=== PATIENT | female | born 1945 | race Caucasian/White ===

== ENCOUNTER 2016-12-31 03:39 | Inpatient (IN) | payer OTHER, MEDICARE ==
[2016-12-31] VITALS (7 sets, daily range): BP systolic 104–120; BP diastolic 66–72; PULSE 90–105; TEMP 36.6–37; O2SAT 93–97; Ht 165.1 cm; Wt 61.0 kg
[~2016-12-31] VITALS: Ht 165.1 cm; Wt 61.0 kg
[~2016-12-31 03:39] MED LIST: HYDR-3419 PO
[2016-12-31] MEDS ORDERED: SODIUM CHLORIDE 0.9% 1000ML 1,000 ML IV STA (03:58)
[2016-12-31] MEDS ORDERED: MoRPHine SULFATE 4 MG/ML 1 ML CARP\\VIAL IV STA (03:58)
[2016-12-31] MEDS ORDERED: ONDANSETRON INJ 2 MG/ML 2 ML VIAL IV STA (03:58)
--- NOTE | 2016-12-31 04:00 | EMERGENCY ROOM VISIT NOTE ---
History Report prepared by Scribirma: Cal Bowers Under the Supervision of: Dr. Ed Muhammad D.O. First contact with patient: 03:46 Chief Complaint: VOMITING Stated Complaint: VOMITING History of Present Illness The patient is a 71 year old female who presents to the Emergency Room with complaints of recurrent vomiting since yesterday. She has been vomiting "green stuff." The patient also complains of nausea and abdominal pain. The patient noticed a mass in the right lower abdomen area that came out in the middle of the night. The patient started experiencing abdominal pain before vomiting or before the lump was noticed. She denies any fevers. The patient has been eating. She has been constipated. She has never had surgery of the abdomen. She has no known drug allergies. Source of History: patient Onset: yesterday Position: other (GI) Quality: other (vomiting) Timing: other (recurrent) Associated Symptoms: + abdominal pain, + nausea, No fevers Review of Systems See HPI for pertinent positives and negatives. A total of ten systems were reviewed and were otherwise negative. Past Medical & Surgical Medical Problems: (1) Pelvic fracture Family History No pertinent family history Social History Smoking Status: Current Every Day Smoker Marital Status: Housing Status: lives with family Current/Historical Medications Scheduled PRN Albuterol Hfa (Ventolin Hfa), 2-4 PUFFS INH Q6H PRN for SOB/Wheezing Allergies Coded Allergies: No Known Allergies (Unverified , 12/31/16) Physical Exam Vital Signs Date Time Temp Pulse Resp B/P Pulse Ox O2 Delivery O2 Flow Rate FiO2 12/31/16 05:39 94 18 131/72 95 Room Air 12/31/16 03:43 36.8 106 18 93 Room Air Physical Exam GENERAL: Awake, alert, well-appearing, in no distress HENT: Normocephalic, atraumatic. Oropharynx unremarkable. EYES: Normal conjunctiva. Sclera non-icteric. NECK: Supple. No nuchal rigidity. FROM. No JVD. RESPIRATORY: Clear to auscultation. CARDIAC: Regular rate, normal rhythm. Extremities warm and well perfused. Pulses equal. ABDOMEN: Increased high pitched bowel sounds. Right lower quadrant mass, suspect hernia. RECTAL: Deferred. MUSCULOSKELETAL: Chest examination reveals no tenderness. The back is symmetrical on inspection without obvious abnormality. There is no CVA tenderness to palpation. No joint edema. LOWER EXTREMITIES: Calves are equal size bilaterally and non-tender. No edema. No discoloration. NEURO: Normal sensorium. No sensory or motor deficits noted. SKIN: No rash or jaundice noted. Medical Decision & Procedures ER Provider Diagnostic Interpretation: Radiology results as stated below per my review and radiologist interpretation CT ABDOMEN & PELVIS: Findings consistent with small bowel obstruction secondary to a small bowel containing right femoral hernia. Trace free fluid. No free air. Cholelithiasis without CT evidence of acute cholecystitis. Subcentimeter renal hypodensities, right lower pole, likely cysts. Atherosclerotic calcifications. Mild to moderate height loss of L2 and T11 vertebral bodies, chronic appearing, large Schmorls node at superior endplate of L3. Radiologist Ivett Swenson MD. Laboratory Results 12/31/16 04:00 Red Blood Count 5.36, Mean Corpuscular Volume 90.5, Mean Corpuscular Hemoglobin 30.8, Mean Corpuscular Hemoglobin Concent 34.0, Mean Platelet Volume 9.1, Neutrophils (%) (Auto) 85.1, Lymphocytes (%) (Auto) 9.5, Monocytes (%) (Auto) 5.0, Eosinophils (%) (Auto) 0.1, Basophils (%) (Auto) 0.1, Neutrophils # (Auto) 11.63, Lymphocytes # (Auto) 1.30, Monocytes # (Auto) 0.68, Eosinophils # (Auto) 0.02, Basophils # (Auto) 0.01 12/31/16 04:00 Test 12/31/16 04:00 White Blood Count 13.67 K/uL (4.8-10.8) Red Blood Count 5.36 M/uL (4.2-5.4) Hemoglobin 16.5 g/dL (12.0-16.0) Hematocrit 48.5 % (37-47) Mean Corpuscular Volume 90.5 fL (80-100) Mean Corpuscular Hemoglobin 30.8 pg (25-34) Mean Corpuscular Hemoglobin Concent 34.0 g/dl (32-36) Platelet Count 322 K/uL (130-400) Mean Platelet Volume 9.1 fL (7.4-10.4) Neutrophils (%) (Auto) 85.1 % Lymphocytes (%) (Auto) 9.5 % Monocytes (%) (Auto) 5.0 % Eosinophils (%) (Auto) 0.1 % Basophils (%) (Auto) 0.1 % Neutrophils # (Auto) 11.63 K/uL (1.4-6.5) Lymphocytes # (Auto) 1.30 K/uL (1.2-3.4) Monocytes # (Auto) 0.68 K/uL (0.11-0.59) Eosinophils # (Auto) 0.02 K/uL (0-0.5) Basophils # (Auto) 0.01 K/uL (0-0.2) RDW Standard Deviation 45.5 fL (36.4-46.3) RDW Coefficient of Variation 13.9 % (11.5-14.5) Immature Granulocyte % (Auto) 0.2 % Immature Granulocyte # (Auto) 0.03 K/uL (0.00-0.02) Anion Gap 8.0 mmol/L (3-11) Est Creatinine Clear Calc Drug Dose 48.7 ml/min Estimated GFR () 70.2 Estimated GFR (Non- 60.6 BUN/Creatinine Ratio 15.7 (10-20) Calcium Level 10.1 mg/dl (8.5-10.1) Total Bilirubin 0.7 mg/dl (0.2-1) Direct Bilirubin 0.2 mg/dl (0-0.2) Aspartate Amino Transf (AST/SGOT) 13 U/L (15-37) Alanine Aminotransferase (ALT/SGPT) 18 U/L (12-78) Alkaline Phosphatase 74 U/L (45-117) Total Protein 8.5 gm/dl (6.4-8.2) Albumin 4.2 gm/dl (3.4-5.0) Lipase 78 U/L (73-393) Laboratory results reviewed by me Medications Administered Medications (Trade) Dose Ordered Sig/Shay Route Start Time Stop Time Status Last Admin Dose Admin Sodium Chloride (Nss 1000ml) 1,000 ml @ 999 mls/hr Q1H1M STAT IV 12/31/16 03:58 12/31/16 04:58 DC 12/31/16 03:58 999 MLS/HR Ondansetron HCl (Zofran Inj) 4 mg NOW STAT IV 12/31/16 03:58 12/31/16 04:00 DC 12/31/16 04:04 4 MG Morphine Sulfate (MoRPHine SULFATE INJ) 4 mg NOW STAT IV 12/31/16 03:58 12/31/16 04:00 DC 12/31/16 04:04 4 MG ECG Indication: vomiting Rate (beats per minute): 68 Rhythm: normal sinus Findings: no acute ischemic change, left axis deviation ED Course 0350: The patient was evaluated in room A12b. A complete history and physical exam was performed. 0358: Morphine Sulfate 4 mg IV, Zofran 4 mg IV, NSS 1000 ml @ 999 mls/hr. 0400: Attempted to reduce the hernia in Trendelenburg position unsuccessfully. 0558: Discussed the case with Dr. Marte, General Surgery. The patient will be evaluated. 0600: Updated the patient. She was resting in no distress. Will place an NG tube. Medical Decision Differential diagnosis includes incarcerated hernia, strangulated hernia, reducible hernia, bowel obstruction, metabolic derangement, dehydration. On able to reduce the femoral hernia with Trendelenburg and pain medicine and direct pressure. Patient underwent CT imaging which shows a hernia with bowel obstruction. Patient was started on an NG tube IV fluids and pain medicine and nausea medicine. The case was discussed with Dr. Marte for admission at 6: 05 AM. He'll take the patient to the operating room later today. Discussed the findings with the patient at bedside Consults Time Called: 0550 Consulting Physician: Dr. Marte, General Surgery Returned Call: [phone] The patient will be evaluated. Impression Primary Impression: SBO (small bowel obstruction) Additional Impression: Femoral hernia of right side Scribe Attestation The scribe's documentation has been prepared under my direction and personally reviewed by me in its entirety. I confirm that the note above accurately reflects all work, treatment, procedures, and medical decision making performed by me. Departure Information Dispostion Being Evaluated By Surgeon Referrals No Doctor, Assigned (PCP) Patient Instructions My [facility] Problem Qualifiers
[2016-12-31 04:10] LABS: BASO % 0.1 %; BASO ABS # 0.01 K/uL (0-0.2); COMPLETE YES; EOS % 0.1 %; HEMATOCRIT 48.5 % (37-47); IG% 0.2 %; LYMPH % 9.5 %; MEAN CELL VOLUME 90.5 fL (80-100); MEAN CORPUSCULAR HEMOGLOBIN 30.8 pg (25-34); MEAN PLATELET VOLUME 9.1 fL (7.4-10.4); NEUT % 85.1 %; PLATELET COUNT 322 K/uL (130-400); RED BLOOD COUNT 5.36 M/uL (4.2-5.4); WHITE BLOOD COUNT 13.67 K/uL (4.8-10.8)
[2016-12-31] MEDS ORDERED: OPTIRAY 320 IV PRN (04:15)
[2016-12-31 04:28] LABS: BUN/CREATININE RATIO 15.7 (10-20); CALCIUM 10.1 mg/dl (8.5-10.1); CREATININE 0.94 mg/dl (0.60-1.20); POTASSIUM 3.8 mmol/L (3.5-5.1)
[2016-12-31] MEDS ORDERED: VNTHFA/IN INH (05:16)
--- NOTE | 2016-12-31 06:52 | History and Physical ---
History & Physical Date December 31, 2016. Chief Complaint Right groin bulge/vomiting History of Present Illness The patient is a 71 year old female with complaints of incarcerated right femoral hernia. She presented to the Emergency Room with complaints of recurrent bilious vomiting since yesterday. The patient also complains of nausea and abdominal pain. She has a mass in the right lower abdomen area that came out in the middle of the night. She had never noticed the hernia previously. The patient started experiencing abdominal pain before vomiting or before the lump was noticed. She denies any fevers. She is obstipated. She has never had surgery of the abdomen. She has no known drug allergies. A CT scan shows man incarcerated SB in a femoral hernia w/associated SBO. Past Medical/Surgical History Medical Problems: (1) Pelvic fracture Additional History Hepatic Disease: No Endocrine Disorder: No Kidney Disease: No Hypertension: No Heart Disease: No Bleeding Tendencies: No Infectious Diseases: No Other: smoker Allergies Coded Allergies: No Known Allergies (Unverified , 12/31/16) Home Medications Scheduled PRN Albuterol Hfa (Ventolin Hfa), 2-4 PUFFS INH Q6H PRN for SOB/Wheezing Physical Examination Skin: warm/dry, no rash Eyes: normal inspection, EOMI, sclerae normal ENT: normal ENT inspection Head: normocephalic, atraumatic Neck: supple, no adenopathy, trachea midline Respiratory/Chest: lungs clear, normal breath sounds, no respiratory distress Cardiovascular: regular rate, rhythm, no edema, no murmur Abdomen / GI: normal bowel sounds, non tender, + pertinent finding (distended) Back: normal inspection Extremities: normal inspection Genitourinary - Female: external genitalia normal, + pertinent finding ( incarcerated right inguinal mass; no erythema; tender) Neurologic/Psych: no motor/sensory deficits, alert, oriented x 3 Diagnosis Incarcerated right femoral hernia ASA Classification: ASA Class II Plan of Treatment -to OR for groin exploration w/repair of hernia possible mesh/possible SB resection -IVF -NGT -IV abx
[2016-12-31] MEDS ORDERED: MoRPHine SULFATE 2 MG/ML CARP IV PRN (07:00)
[2016-12-31] MEDS ORDERED: MoRPHine SULFATE 4 MG/ML 1 ML CARP\\VIAL IV PRN (07:00)
[2016-12-31] MEDS ORDERED: OXYCODONE/ACETAMINOPHEN 5-325 TAB PO PRN (07:00)
[2016-12-31] MEDS ORDERED: ONDANSETRON INJ 2 MG/ML 2 ML VIAL IV PRN ×2 (07:00→11:15)
--- NOTE | 2016-12-31 08:03 | DIAGNOSTIC IMAGING REPORT ---
ABDOMEN AND PELVIS CT WITH IV CONTRAST CT DOSE: 236.84 mGy.cm HISTORY: Generalized abdominal pain TECHNIQUE: Multiaxial CT images of the abdomen and pelvis were performed following the use of intravenous contrast. COMPARISON STUDY: Pelvis CT 11/01/2012. FINDINGS: Mild dependent changes seen at the lung bases. No pneumoperitoneum. No pneumatosis. Mild to moderate loss of height at L2 and T11 vertebral bodies which are likely chronic. Cholelithiasis. The liver, pancreas, spleen, and left kidney are unremarkable. A 5 mm hypodense lesion within the lower pole of the right kidney is too small to characterize. No hydronephrosis. No retroperitoneal lymphadenopathy. The bladder is not well-distended. The uterus and bilateral adnexa are unremarkable. Colonic diverticulosis. Mildly distended and fluid-filled stomach. The colon is decompressed. Normal appendix. Multiple distended fluid-filled loops of small bowel in the abdomen. There is a transition point located at a right femoral hernia which contains a loop of mid ileum. Distal to the femoral hernia the distal ileal loops are decompressed. Therefore, this is consistent with a high-grade small bowel obstruction. The small bowel is distended up to 3.7 cm. IMPRESSION: 1. There is a small bowel containing right femoral hernia resulting in a high-grade small bowel obstruction. Surgical consultation is recommended. 2. Cholelithiasis. 3. Colonic diverticulosis. Electronically signed by: Allen Nicholson M.D. 12/31/2016 8:02 AM Dictated Date/Time: 12/31/2016 7:56 AM
[2016-12-31] MEDS ORDERED: MIDAZOLAM HCL 1 MG/ML 2ML VIAL ONE (08:09)
[2016-12-31] MEDS ORDERED: FENTANYL CITRATE INJ 50 MCG/1 ML 2 ML VIAL ONE (08:09)
[2016-12-31] MEDS ORDERED: PROPOFOL IV EMULSION 10 MG/ML 20 ML VIAL IV ONE (08:09)
[2016-12-31] MEDS ORDERED: ONDANSETRON INJ 2 MG/ML 2 ML VIAL ONE (08:10)
[2016-12-31] MEDS ORDERED: ROCURONIUM BROMIDE 10 MG/ML 5 ML VIAL ONE (08:10)
[2016-12-31] MEDS ORDERED: LIDOCAINE HCL 2% 2 ML VIAL (20MG/ML) ONE (08:10)
[2016-12-31] MEDS ORDERED: DEXAMETHASONE SOD INJ 4 MG/ML VIAL ONE (08:10)
[2016-12-31] MEDS ORDERED: SUCCINYLCHOLINE CHLORIDE 20 MG/ML 10 ML VIAL IV ONE (08:10)
[2016-12-31] MEDS ORDERED: BUPIVACAINE/EPINEPHRINE 0.5% MPF 1:200,000 30 ML VIAL ONE (10:01)
[2016-12-31] MEDS ORDERED: ALBUT/IPRATROP 3MG/0.5MG NEB 3 ML VIAL ONE (10:06)
[2016-12-31] MEDS ORDERED: CEFOXITIN SOD 1 GM VIAL ONE (10:41)
[2016-12-31] MEDS ORDERED: PHENYLEPHRINE 100MCG/ML 5ML SYR ONE (11:05)
[2016-12-31] MEDS ORDERED: NEOSTIGMINE METHYLSULFATE 5 MG/5 ML SYR ONE (11:05)
[2016-12-31] MEDS ORDERED: ATROPINE SULFATE 0.1 MG/ML 5ML SYR IV PRN (11:15)
[2016-12-31] MEDS ORDERED: HYDROmorphone INJ 1 MG/ML SYR IV PRN (11:15)
[2016-12-31] MEDS ORDERED: FENTANYL CITRATE INJ 50 MCG/1 ML 2 ML VIAL IV PRN (11:15)
[2016-12-31] MEDS ORDERED: EpHEDrine SULFATE INJ 50 MG/ML AMP IV PRN (11:15)
--- NOTE | 2016-12-31 11:27 | [facility] Post Operative Brief Note ---
Immediate Operative Summary Operative Date December 31, 2016. Pre-Operative Diagnosis Incarcerated right femoral hernia Post-Operative Diagnosis Same as Preop Procedure(s) Performed Right Incarcerated Femoral Hernia Repair with Mesh Surgeon Dr. Marte Baggagemaster Surgeon(s) none Estimated Blood Loss 20 ML Findings loop of viable SB within sac and compressed distal bowel and dilated proximal bowel; reduced without issue Specimens A. Hernia Sac Drains none Anesthesia GETA w/marcaine Complication(s) None Disposition Recovery Room / PACU
[2016-12-31] MEDS ORDERED: ALBUTEROL 0.083% NEBU SOLN 3 ML VIAL INH PRN (11:30)
--- NOTE | 2016-12-31 12:17 | Anesthesiology Progress Note ---
Anesthesia Post Op Note Date & Time December 31, 2016 at 12:17 Vital Signs Pain Intensity: 0 Vital Signs Past 12 Hours Date Time Temp Pulse Resp B/P Pulse Ox O2 Delivery O2 Flow Rate FiO2 12/31/16 12:05 98 20 109/64 98 Nasal Cannula 2 12/31/16 11:55 94 19 124/72 97 Mask 10 12/31/16 11:45 96 20 129/77 97 Mask 10 12/31/16 11:38 37.1 96 20 125/70 98 Mask 10 12/31/16 09:17 100 20 140/82 90 Room Air 12/31/16 07:50 102 16 118/69 91 Room Air 12/31/16 06:50 101 18 127/72 90 Room Air 12/31/16 05:39 94 18 131/72 95 Room Air 12/31/16 03:43 36.8 106 18 93 Room Air Notes Mental Status: alert / awake / arousable, participated in evaluation Pt Amnestic to Procedure: Yes Nausea / Vomiting: adequately controlled Pain: adequately controlled Airway Patency, RR, SpO2: stable & adequate BP & HR: stable & adequate Hydration State: stable & adequate Anesthetic Complications: no major complications apparent
--- NOTE | 2016-12-31 12:52 | OPERATIVE REPORT ---
DATE OF OPERATION: 12/31/2016 POSTOPERATIVE DIAGNOSIS: Incarcerated right femoral hernia with small-bowel obstruction. POSTOPERATIVE DIAGNOSIS: Same. PROCEDURE PERFORMED: Right groin exploration with reduction of incarcerated small bowel and repair of femoral hernia with a plug of mesh. SURGEON: Dr. Nicanor Marte. CUTTER V GROOVE: None. ANESTHESIA: General endotracheal with 0.5% Marcaine with epinephrine local. ESTIMATED BLOOD LOSS: 15 mL. COMPLICATIONS: None. SPECIMENS: Hernia sac. DRAINS: None. INDICATION FOR PROCEDURE: This is a 71-year-old female who came into the Emergency Room this morning with complaints of nausea, vomiting and right groin bulge and abdominal pain. She underwent a workup and had a CT which shows incarcerated femoral hernia. NG tube was placed. She was given fluids and taken to the OR for a right groin exploration. DESCRIPTION OF PROCEDURE: The patient was taken to the OR and underwent excellent general endotracheal anesthesia. Abdomen and right groin were prepped and draped in normal sterile fashion. A transverse oblique incision was made over the lines of Jose Manuel's above the incarcerated right inguinal hernia. Dissection was taken down to identify the hernia sac. This was then sharply dissected down to the femoral ring. Incision was made medial to help enlarge the ring, this facilitated bringing the small bowel out. There was a small area peripheral to the bowel but it was viable. The proximal bowel was dilated. The distal bowel was compressed. The bowel was watched and then placed into the peritoneal cavity. Once this was done, the hernia sac was brought down to where the ring was, a pursestring suture with 0 Vicryl was used to close the hernia sac and portion of the hernia sac was resected. Hernia sac was pushed back into the ring, a large plug was then placed and this was circumferentially secured with 0 Ethibond sutures plugging the femoral defect. Once this was done, the groin was irrigated out. The Sadia's fascia was closed with a running Vicryl suture. The deep tissues were closed with interrupted Vicryls. 0.5% Marcaine with epinephrine local was used to create a local field block. Hung used to close the skin. Sterile dressing was applied. She tolerated the procedure well without any complications, sent to postop recovery area for a period of observation and be discharged to floor for care. I attest to the content of the Intraoperative Record and any orders documented therein. Any exceptio ns are noted below.
[2016-12-31] MEDS ORDERED: NURSING VERBAL MED ORDER ONE (14:45)
[2016-12-31] MEDS: LACTATED RINGER'S 1000ML 1,000 ML IV SCH ×2 (14:46→17:29)
[2016-12-31] MEDS: PANTOprazole INJ 40 MG in SYRINGE 0 ML IV SCH (14:47)
[2016-12-31] MEDS: ACETAMINOPHEN IV 1000MG/100ML IV PRN (14:47)
[2016-12-31 16:16] LABS: URINE APPEARANCE CLEAR (CLEAR); URINE BILIRUBIN NEG (NEG); URINE COLOR YELLOW; URINE EPITHELIAL CELL AUTO >30 /lpf (0-5); URINE NITRITE NEG (NEG); URINE SPECIFIC GRAVITY 1.037 (1.000-1.030); UROBILINOGEN NEG (NEG); ZZUR CULT IF INDIC CLEAN CATCH NO
[2016-12-31 16:17] LABS: MANUAL MICROSCOPIC REQUIRED? NO; REVIEW REQ? YES
[2016-12-31] MEDS: CEFOXITIN IV 2,000 MG in DEXTROSE 5% 50ML 50 ML IV SCH (17:29)
[2017-01-01] MEDS: CEFOXITIN IV 2,000 MG in DEXTROSE 5% 50ML 50 ML IV SCH ×2 (02:15→09:48)
[2017-01-01] MEDS: LACTATED RINGER'S 1000ML 1,000 ML IV SCH ×3 (02:16→22:25)
[2017-01-01] MEDS: ACETAMINOPHEN IV 1000MG/100ML IV PRN (02:33)
[2017-01-01 03:16] VITALS: BP 107/63; PULSE 87; TEMP 36.9; O2SAT 96
[2017-01-01 07:15] VITALS: BP 111/68; PULSE 87; TEMP 36.9; O2SAT 95
[2017-01-01] MEDS: PANTOprazole INJ 40 MG in SYRINGE 0 ML IV SCH (11:03)
[2017-01-01] MEDS ORDERED: ACETAMINOPHEN IV 650 MG in EMPTY BAG 0 ML IV PRN (11:15)
--- NOTE | 2017-01-01 11:21 | Surgery Progress Note ---
Surgery Progress Note Date of Service January 01, 2017. Subjective Post OP Day: 1 + ambulating, + feeling well, + flatus, + pain controlled, No SOB, No bowel movement, No chest pain, No complaints, No nausea, No vomiting Objective Vital Signs: Date Time Temp Pulse Resp B/P Pulse Ox O2 Delivery O2 Flow Rate FiO2 01/01/17 07:30 Room Air 01/01/17 07:15 36.9 87 16 111/68 95 Room Air 01/01/17 03:16 36.9 87 16 107/63 96 Room Air 01/01/17 00:15 Nasal Cannula 2.0 12/31/16 23:04 36.8 90 16 112/69 96 Nasal Cannula 2.0 12/31/16 19:15 36.8 95 16 104/68 93 Nasal Cannula 2.0 12/31/16 15:30 36.6 96 16 112/72 96 Nasal Cannula 2.0 12/31/16 15:30 Nasal Cannula 2.0 12/31/16 14:30 37.0 99 18 110/66 95 Nasal Cannula 2.0 12/31/16 14:10 97 Nasal Cannula 2.0 12/31/16 13:37 99 20 114/72 95 Nasal Cannula 2.0 12/31/16 13:00 36.6 105 21 120/72 95 Nasal Cannula 2.0 12/31/16 12:20 99 22 128/64 99 Nasal Cannula 2 12/31/16 12:15 37.3 97 20 127/67 98 Nasal Cannula 2 12/31/16 12:05 98 20 109/64 98 Nasal Cannula 2 12/31/16 11:55 94 19 124/72 97 Mask 10 12/31/16 11:45 96 20 129/77 97 Mask 10 12/31/16 11:38 37.1 96 20 125/70 98 Mask 10 General Appearance: WD/WN, no apparent distress Head: normocephalic, atraumatic Neck: trachea midline Respiratory/Chest: no respiratory distress, no accessory muscle use Abdomen: non tender, non distended, soft Incision(s): clean (dressing clean and dry incision not evaluated POD # 1), dry Extremities: normal range of motion Laboratory Results: Results Past 24 Hours Test 12/31/16 16:07 Range/Units Urine Color YELLOW Urine Appearance CLEAR CLEAR Urine pH 7.0 4.5-7.5 Urine Specific Loco 1.037 1.000-1.030 Urine Protein TRACE NEG Urine Glucose (UA) NEG NEG Urine Ketones 2+ NEG Urine Occult Blood 3+ NEG Urine Nitrite NEG NEG Urine Bilirubin NEG NEG Urine Urobilinogen NEG NEG Urine Leukocyte Esterase NEG NEG Urine WBC (Auto) 1-5 0-5 /hpf Urine RBC (Auto) >30 0-4 /hpf Urine Hyaline Casts (Auto) 1-5 0-5 /lpf Urine Epithelial Cells (Auto) >30 0-5 /lpf Urine Bacteria (Auto) NEG NEG Urine Renal Epithelial Cells 0-5 0-5 /lpf Assessment & Plan POD # 1 s/p repair of Right incarcerated femoral hernia - vitals stable - Minimal NGT output last shift - pain minimal and controlled - passing flatus Plan: D/C NGT Start on clear liquids encourage ambulation will switch IV Tylenol to 650 mg q 6 hours prn pain instead of daily (has not needed any Percocet) Once tolerates oral intake can have oral Tylenol Dr. Marte has seen patient and agrees with above
[2017-01-01 11:50] VITALS: BP 112/70; PULSE 89; TEMP 36.9; O2SAT 92
[2017-01-01] MEDS ORDERED: ACETAMINOPHEN IV 100 ML IV PRN (15:00)
[2017-01-01 15:10] VITALS: BP 121/73; PULSE 92; TEMP 37; O2SAT 92
[2017-01-01 22:44] VITALS: BP 124/79; PULSE 89; TEMP 36.9; O2SAT 92
[2017-01-02] MEDS: PROMETHAZINE HCL INJ 25 MG in SODIUM CHLORIDE 0.9% 50ML 50 ML IV PRN ×2 (03:43→16:39)
--- NOTE | 2017-01-02 06:52 | Surgery Progress Note ---
Surgery Progress Note Date of Service January 02, 2017. Subjective Post OP Day: 2 + ambulating, + complaints (GERD), + diet (clears), + feeling well, + flatus, No nausea, No vomiting Objective Vital Signs: Date Time Temp Pulse Resp B/P Pulse Ox O2 Delivery O2 Flow Rate FiO2 01/02/17 00:30 Room Air 01/01/17 22:44 36.9 89 16 124/79 92 Room Air 01/01/17 15:20 Room Air 01/01/17 15:10 37.0 92 18 121/73 92 Room Air 01/01/17 11:50 36.9 89 16 112/70 92 Room Air 01/01/17 07:30 Room Air 01/01/17 07:15 36.9 87 16 111/68 95 Room Air General Appearance: WD/WN, no apparent distress Head: normocephalic, atraumatic Neck: supple Respiratory/Chest: chest non-tender, lungs clear Cardiovascular: regular rate, rhythm Abdomen: normal bowel sounds, non tender, non distended, soft Incision(s): clean, dry, intact Extremities: non-tender, no pedal edema Assessment & Plan s/p right femoral hernia repair -advance diet -ambulate -maalox for GERD -good progress, possibly home in AM
[2017-01-02 06:59] VITALS: BP 106/63; PULSE 114; TEMP 37; O2SAT 91
[2017-01-02] MEDS ORDERED: ALUMINUM/MAGNESIUM/SIMETH (MAALOX MAX) 30 ML UDC PO PRN (07:00)
[2017-01-02] MEDS: LACTATED RINGER'S 1000ML 1,000 ML IV SCH (08:45)
[2017-01-02] MEDS: PANTOprazole INJ 40 MG in SYRINGE 0 ML IV SCH (09:49)
[2017-01-02 11:07] VITALS: BP 132/74; PULSE 103; TEMP 37.2; O2SAT 86; O2SAT 92
[2017-01-02] MEDS ORDERED: NURSING VERBAL MED ORDER ONE (13:00)
[2017-01-02 15:05] VITALS: BP 116/77; PULSE 102; TEMP 36.9; O2SAT 91
[2017-01-02] MEDS: CALCIUM CARBONATE 500 MG CHEWABLE PO PRN (15:48)
[2017-01-02 22:46] VITALS: BP 116/73; PULSE 99; TEMP 36.9; O2SAT 93
[2017-01-03] MEDS: LACTATED RINGER'S 1000ML 1,000 ML IV SCH (03:59)
[2017-01-03 07:04] VITALS: BP 117/68; PULSE 90; TEMP 36.8; O2SAT 93
--- NOTE | 2017-01-03 10:28 | Surgery Progress Note ---
Surgery Progress Note Date of Service January 03, 2017. Subjective + diet (clear liquids), + feeling well, + flatus, + pain controlled, No SOB, No bowel movement, No chest pain, No complaints Had nausea and vomiting all day yesterday [place] it was more indigestion and heartburn Feeling much better today No current nausea and vomiting, tolerating clear liquids Passing flatus, no bm Objective Vital Signs: Date Time Temp Pulse Resp B/P Pulse Ox O2 Delivery O2 Flow Rate FiO2 01/03/17 07:40 Room Air 01/03/17 07:04 36.8 90 16 117/68 93 Room Air 01/02/17 23:45 Room Air 01/02/17 22:46 36.9 99 16 116/73 93 Room Air 01/02/17 15:45 Room Air 01/02/17 15:05 36.9 102 16 116/77 91 Room Air 01/02/17 11:07 37.2 103 12 132/74 92 Room Air General Appearance: WD/WN, no apparent distress Head: normocephalic, atraumatic Neck: trachea midline Respiratory/Chest: no respiratory distress, no accessory muscle use Abdomen: normal bowel sounds, non tender, non distended, soft Incision(s): clean, dry, intact, no erythema, no drainage, findings (external bryan present) Assessment & Plan POD # 3 s/p repair of Right incarcerated femoral hernia - vitals stable - emesis and indigestion yesterday, converted back to clear liquids ( tolerating well so far) - pain minimal - ambulating - passing flatus Plan: Continue clear liquids, if tolerates this morning advance to full liquids encourage ambulation Continue pain management will start po Tylenol q [address] Marte has seen patient and agrees with above
[2017-01-03] MEDS: PANTOprazole INJ 40 MG in SYRINGE 0 ML IV SCH (11:19)
[2017-01-03] MEDS ORDERED: ACETAMINOPHEN 325 MG TAB PO PRN (13:00)
[2017-01-03 15:20] VITALS: BP 121/75; PULSE 92; TEMP 36.8; O2SAT 92
[2017-01-03 23:20] VITALS: BP 106/67; PULSE 88; TEMP 36.9; O2SAT 91
[2017-01-04] MEDS: LACTATED RINGER'S 1000ML 1,000 ML IV SCH (00:26)
[2017-01-04] MEDS: CALCIUM CARBONATE 500 MG CHEWABLE PO PRN (05:56)
[2017-01-04 07:04] VITALS: BP 133/80; PULSE 94; TEMP 36.8; O2SAT 94
--- NOTE | 2017-01-04 07:31 | Surgery Progress Note ---
Surgery Progress Note Date of Service January 04, 2017. Subjective Post OP Day: 4 + bowel movement, + diet (clears), + feeling well, + flatus, No complaints, No nausea, No vomiting Objective Vital Signs: Date Time Temp Pulse Resp B/P Pulse Ox O2 Delivery O2 Flow Rate FiO2 01/04/17 07:04 36.8 94 14 133/80 94 Room Air 01/04/17 00:00 Room Air 01/03/17 23:20 36.9 88 16 106/67 91 Room Air 01/03/17 15:45 Room Air 01/03/17 15:20 36.8 92 18 121/75 92 Room Air 01/03/17 07:40 Room Air General Appearance: WD/WN, no apparent distress Head: normocephalic, atraumatic Neck: supple, trachea midline Respiratory/Chest: lungs clear Cardiovascular: regular rate, rhythm Abdomen: normal bowel sounds, non distended, soft, + tenderness (mild) Incision(s): clean, dry, intact Extremities: non-tender, no pedal edema Assessment & Plan s/p right femoral hernia repair -advance diet -ambulate -home today if does well
[2017-01-04] MEDS ORDERED: OXYC-57 PO (07:32)
--- NOTE | 2017-01-04 07:34 | Discharge Instructions ---
Discharge Instructions Date of Service January 04, 2017. Admission Reason for Admission: Femoral Henia Of Right Side;Sbo Discharge Discharge Diagnosis / Problem: s/p femoral hernia repair Discharge Goals Goal(s): Therapeutic intervention Activity Recommendations Activity Limitations: per Instructions/Follow-up section Lifting Limitations: no more than 10 pounds Exercise/Sports Limitations: until after follow-up appointment May Resume Sexual Activity: after follow-up appointment Shower/Bathe: no limitations Driving or Machine Use: resume 3 days after discharge (as long as not taking narcotics) . Current Hospital Diet Patient's current hospital diet: Regular Diet Discharge Diet Recommended Diet: Regular Diet Procedures Procedures Performed: Right Incarcerated Femoral Hernia Repair with Mesh Pending Studies Studies pending at discharge: no Work Instructions Return To Work: after follow-up Lifting Limitations: no more than 20 pounds Medical Emergencies . Who to Call and When: Medical Emergencies: If at any time you feel your situation is an emergency, please call 911 immediately. . Non-Emergent Contact Non-Emergency issues call your: Primary Care Provider, Surgeon Call Non-Emergent contact if: temperature is above 101.5, your pain is not controlled, your pain is worsening, your pain is unusual for you, your pain is concerning you, wound has increased redness, wound has increased pain, you have any medication questions . "Provider Documentation" section prepared by Nicanor Marte. . Technical Instructor Course Developer Recommendations Technical Instructor Course Developer Recommendations: F/U cooper/Estuardo; 2 weeks; [phone] VTE Core Measure Inpt VTE Proph given/why not?: SCD's [place] Drug Monitoring Program Search Results: patient reviewed within database, no issues identified
[2017-01-04] MEDS: PANTOprazole INJ 40 MG in SYRINGE 0 ML IV SCH (10:48)
[2017-01-04] MEDS ORDERED: TRAM-10 PO (13:29)
[2017-01-04 13:30] VITALS: BP 133/80; PULSE 94; TEMP 36.8; O2SAT 94
--- NOTE | 2017-01-05 10:55 | Discharge Summary ---
Discharge Summary Dates Admission Date / Time: December 31, 2016 at 06:56 Discharge Date: January 04, 2017 Dispostion / Condition Discharge Disposition: Home Condition at Discharge: Good Principal Diagnosis (1) Incarcerated femoral hernia (2) SBO (small bowel obstruction) Consultations / Procedures Consultations: None Procedures: Repair of Incarcerated femoral hernia Pending Studies / Follow-Up None Medication Reconciliation New Medications: Oxycodone/Acetaminophen 5MG/325MG (Percocet 5MG/325MG) Tab 1 TABLET PO Q6H PRN for Pain, #30 TAB Tramadol (Ultram) 50 Mg Tab 50 MG PO Q4H PRN for Pain, #30 TAB Continued Medications: Albuterol Hfa (Ventolin Hfa) 200 Puffs/43863 Mcg Aers 2-4 PUFFS INH Q6H PRN for SOB/Wheezing, #1 INHALER Admission HPI Per the Admitting provider: The patient is a 71 year old female with complaints of incarcerated right femoral hernia. She presented to the Emergency Room with complaints of recurrent bilious vomiting since yesterday. The patient also complains of nausea and abdominal pain. She has a mass in the right lower abdomen area that came out in the middle of the night. She had never noticed the hernia previously. The patient started experiencing abdominal pain before vomiting or before the lump was noticed. She denies any fevers. She is obstipated. She has never had surgery of the abdomen. She has no known drug allergies. A CT scan shows an incarcerated SB in a femoral hernia w/associated SBO. Hospital Course (1) Incarcerated femoral hernia Patient was taken to operating room for repair of incarcerated right femoral hernia. Patient tolerated procedure well and was transferred to PACU and then Med/Surg unit in stable condition. IV fluids, IV antibiotics (cefoxitin 1 gm IV q 8 hrs x 3 bags), NGT to Low intermittent suction, NPO, IV pain medication including IV Tylenol and PO Percocet were ordered for patient post operatively. POD # 1 there was minimal output in the NGT therefore it was removed and patient was slowly started on clear liquids. IV Tylenol was switched to 650 mg IV q 6 hours prn pain instead of daily. She did not require any Percocet or narcotics for pain. POD # 2 she had some GERD and Maalox was ordered. Diet was advanced to full liquids however she had nausea and vomiting most of the day in which clear liquids were started again. POD # 3 she was passing flatus and tolerated clears. Diet was again advanced to full liquids. PO Tylenol was started as needed for pain. POD # 4 diet as advanced to regular diet. She was passing flatus and had a bowel movement. Pain was non existent. Feeling good. She was discharged in the afternoon on POD # 4 in stable condition. Overall hospital course was uneventful. (2) SBO (small bowel obstruction) Please see above Total Time Total Time Spent (min): 30 Total Time Includes: examination of the patient Discharge Instructions As given to patient Copies To Primary Care Provider: Slim Ramos D.O..
== END 2017-01-04 13:56 | disposition home or self-care (01) | DRG 352 ==
LOC: ENRESERVDT → ENRESERVTM → C.EDB 03:39 → C.MSW 06:56
PROVIDERS: ADMIT Surgery; ATTEND Surgery
PROC: 0YU70JZ Supplement Right Femoral Region with Synthetic Substitute, Open Approach (ICD-10-PCS; principal; 2016-12-31 08:00)
PROC: 0DN87ZZ Release Small Intestine, Via Natural or Artificial Opening (ICD-10-PCS; principal; 2016-12-31 08:00)
DX: K41.30 Unilateral femoral hernia, with obstruction, without gangrene, not specified as recurrent (principal); F17.200 Nicotine dependence, unspecified, uncomplicated; K21.9 Gastro-esophageal reflux disease without esophagitis

== ENCOUNTER → 2017-01-25 | Outpatient (CLI) | payer OTHER, MEDICARE ==
[~2017-01-25] MED LIST changes: -HYDR-3419 PO; +OXYC-57 PO; +TRAM-10 PO; +VNTHFA/IN INH
== END | disposition home or self-care (01) ==
LOC: C.LABSPEC 13:26
PROVIDERS: ATTEND Family Medicine
DX: R19.7 Diarrhea, unspecified (principal); Z98.890 Other specified postprocedural states

== ENCOUNTER → 2017-02-15 | Outpatient (CLI) | payer OTHER, MEDICARE ==
[2017-02-15 12:54] LABS: BASO % 0.5 %; BASO ABS # 0.03 K/uL (0-0.2); COMPLETE YES; EOS % 1.7 %; HEMATOCRIT 45.6 % (37-47); IG% 0.2 %; LYMPH % 49.9 %; LYMPH ABS # 2.87 K/uL (1.2-3.4); MEAN CELL VOLUME 91.4 fL (80-100); MEAN CORPUSCULAR HEMOGLOBIN 29.1 pg (25-34); MEAN CORPUSCULAR HGB CONC 31.8 g/dl (32-36); MEAN PLATELET VOLUME 9.9 fL (7.4-10.4); MONO % 7.5 %; NEUT % 40.2 %; PLATELET COUNT 260 K/uL (130-400); RED BLOOD COUNT 4.99 M/uL (4.2-5.4); WHITE BLOOD COUNT 5.75 K/uL (4.8-10.8)
[2017-02-15 13:19] LABS: ALT/SGPT 20 U/L (12-78); BLOOD UREA NITROGEN 8 mg/dl (7-18); BUN/CREATININE RATIO 10.1 (10-20); CALCIUM 8.9 mg/dl (8.5-10.1); CARBON DIOXIDE 29 mmol/L (21-32); CHLORIDE 106 mmol/L (98-107); CHOLESTEROL 129 mg/dl (0-200); CREATININE 0.74 mg/dl (0.60-1.20); GLUCOSE 92 mg/dl (70-99); POTASSIUM 3.5 mmol/L (3.5-5.1); SODIUM 142 mmol/L (136-145); TRIGLYCERIDES 99 mg/dl (0-150); VERY LOW DENSITY LIPOPROT CALC 20 mg/dl
[2017-02-15 13:28] LABS: ALB/GLOB RATIO 0.9 (0.9-2); ALKALINE PHOSPHATASE 54 U/L (45-117); AST/SGOT 17 U/L (15-37); CHOLESTEROL/HDL RATIO 2.2; HDL CHOLESTEROL 59 mg/dl; LDL CHOLESTEROL CALCULATED 50 mg/dl
== END | disposition home or self-care (01) ==
LOC: C.LABPBG 07:42
PROVIDERS: ATTEND Neuromusculoskeletal Medicine & OMM
DX: Z00.00 Encounter for general adult medical examination without abnormal findings (principal)

== ENCOUNTER → 2018-03-07 | Outpatient (CLI) | payer OTHER, MEDICARE ==
[~2018-03-07] MED LIST changes: -OXYC-57 PO; -TRAM-10 PO
[2018-03-07 13:37] LABS: ALKALINE PHOSPHATASE 57 U/L (45-117); ALT/SGPT 17 U/L (12-78); AST/SGOT 17 U/L (15-37); BLOOD UREA NITROGEN 11 mg/dl (7-18); CALCIUM 9.3 mg/dl (8.5-10.1); CARBON DIOXIDE 29 mmol/L (21-32); CHOLESTEROL 156 mg/dl (0-200); CREATININE 0.67 mg/dl (0.60-1.20); GLUCOSE,FASTING 94 mg/dl (70-99); LDL CHOLESTEROL CALCULATED 66 mg/dl; POTASSIUM 4.3 mmol/L (3.5-5.1); SODIUM 141 mmol/L (136-145); TOTAL PROTEIN 7.4 gm/dl (6.4-8.2)
== END | disposition home or self-care (01) ==
LOC: C.LABPBG 07:43
PROVIDERS: ATTEND Physician Assistant
DX: S00.96XA Insect bite (nonvenomous) of unspecified part of head, initial encounter (principal); X58.XXXA Exposure to other specified factors, initial encounter; Z00.00 Encounter for general adult medical examination without abnormal findings

== ENCOUNTER 2018-03-30 07:40 | Emergency (ER) | payer OTHER, MEDICARE ==
[~2018-03-30] VITALS: Ht 165.1 cm; Wt 59.6 kg
[2018-03-30 07:44] VITALS: TEMP 36.8; Ht 165.1 cm; Wt 59.6 kg
[2018-03-30 08:58] LABS: ALBUMIN 3.8 gm/dl (3.4-5.0); CALCIUM 9.3 mg/dl (8.5-10.1); CREATININE 0.77 mg/dl (0.60-1.20); TOTAL PROTEIN 7.9 gm/dl (6.4-8.2)
[2018-03-30 09:19] LABS: BASO % 0.3 %; BASO ABS # 0.02 K/uL (0-0.2); EOS % 1.3 %; EOS ABS # 0.08 K/uL (0-0.5); HEMATOCRIT 44.9 % (37-47); HEMOGLOBIN 14.6 g/dL (12.0-16.0); IG# 0.01 K/uL (0.00-0.02); LYMPH % 26.1 %; LYMPH ABS # 1.58 K/uL (1.2-3.4); MEAN CELL VOLUME 91.3 fL (80-100); MEAN CORPUSCULAR HEMOGLOBIN 29.7 pg (25-34); MEAN CORPUSCULAR HGB CONC 32.5 g/dl (32-36); MEAN PLATELET VOLUME 9.1 fL (7.4-10.4); MONO % 7.9 %; MONO ABS # 0.48 K/uL (0.11-0.59); NEUT % 64.2 %; NEUT ABS # 3.89 K/uL (1.4-6.5); PLATELET COUNT 287 K/uL (130-400); RED CELL DISTRIBUTION WIDTH CV 13.8 % (11.5-14.5); RED CELL DISTRIBUTION WIDTH SD 45.8 fL (36.4-46.3); WHITE BLOOD COUNT 6.06 K/uL (4.8-10.8)
--- NOTE | 2018-03-30 09:19 | DIAGNOSTIC IMAGING REPORT ---
ABDOMEN 2VIEW W/PA CHEST RTN CLINICAL HISTORY: 72 years-old Female presenting with left abd pain. TECHNIQUE: PA view of the chest and supine and upright views of the abdomen were obtained. COMPARISON: CT from 12/31/2016. FINDINGS: Atherosclerosis of the aortic arch. Tortuosity of the descending thoracic aorta. Cardiac silhouette normal in size. Lungs are hyperinflated. No focal opacity. No large effusion or pneumothorax. Moderate stool burden throughout the colon. The right colon has an unusual appearance and underlying wall thickening is difficult to exclude. No convincing evidence of bowel obstruction. No pneumoperitoneum. Cholelithiasis. Atherosclerotic calcifications noted. Gas and stool burden limited evaluation for nephrolithiasis. Pelvic phleboliths suggested. Osteopenia suspected. Degenerative changes of the spine and left sacroiliac joint. IMPRESSION: 1. Findings suggest emphysema. No focal infiltrate to suggest pneumonia. 2. Moderate stool burden. Colonic wall thickening of the right colon is difficult to exclude given its atypical appearance, although this does not correspond with the reported left abdominal pain. 3. Cholelithiasis. Electronically signed by: Wayne Rodriguez M.D. 03/30/2018 9:17 AM Dictated Date/Time: 03/30/2018 9:15 AM
[2018-03-30 09:37] LABS: POTASSIUM 4.1 mmol/L (3.5-5.1)
--- NOTE | 2018-03-30 09:49 | EMERGENCY ROOM VISIT NOTE ---
ED Visit Note First contact with patient: 07:47 The patient was seen and examined with Brad Ayala PA-C. I agree with the history, physical and findings. Please see the note for disposition and details.
[2018-03-30 10:08] VITALS: BP 132/75; PULSE 88; O2SAT 98
--- NOTE | 2018-04-02 18:20 | EMERGENCY ROOM VISIT NOTE ---
History First contact with patient: 07:47 Chief Complaint: CONSTIPATION Stated Complaint: CAN'T BET BOWELS TO MOVE, SIDE PAIN Nursing Triage Summary: Pt. arrives with c/o of being unable to go to the bathroom for the last week. Pt. states "I did go a little this morning, but I have been eating alot of con and I am all back up." Pt. also reports left sided flank pain that radiates across her lower back. History of Present Illness The patient is a 72 year old white female who presents to the Emergency Room with complaints of constipation and left-sided abdominal pain. She states she has not been able to move her bowels much all week. She usually goes daily. She has been eating a lot of corn lately and states she has backed up. She did move her bowels small amount yesterday and a small amount this morning. Pain radiates across the low back. No trauma to the abdomen. She has tried some stool softeners without improvement. She did not contact her PCP. No fevers or chills. No nausea or vomiting. Her accompanied her today. She does have a history of previous small bowel obstruction after herniorrhaphy. Pain is currently rated 3/10 but at times is 8/10 depending on movement and position. Review of Systems REVIEW OF SYSTEM: HEENT: No dizziness, visual problems, hearing loss, or tinnitus. There is no difficulty swallowing and no oral lesions are present. LYMPH: No adenopathy. PULMONARY: No cough, shortness of breath, sputum production or hemoptysis. CARDIOVASCULAR: No chest pain, palpitations, shortness of breath or peripheral edema. GASTROINTESTINAL: No diarrhea, nausea, or vomiting. Positive constipation and abdominal pain. GENITOURINARY: No dysuria, frequency, urgency or nocturia. NEUROLOGIC: No weakness, muscle tenderness, epilepsy or history of neurological problems. MUSCULOSKELETAL: No history of joint tenderness/swelling. Positive history of arthritis and arthralgias. SKIN: No rashes or lesions. PSYCHIATRIC: No history of depression or mental illness. ENDOCRINE: No history of diabetes, thyroid disorders, or abnormal hair growth. Past Medical/Surgical History Medical Problems: (1) Incarcerated femoral hernia (2) Pelvic fracture (3) SBO (small bowel obstruction) Family History No pertinent family history Social History Smoking Status: Former Smoker Smokeless Tobacco Use: No Alcohol Use: none Drug Use: none Marital Status: Housing Status: lives with family Occupation Status: retired Current/Historical Medications Scheduled PRN Albuterol Hfa (Ventolin Hfa), 2-4 PUFFS INH Q6H PRN for SOB/Wheezing Allergies Coded Allergies: No Known Allergies (Unverified , 03/30/18) Physical Exam Vital Signs Date Time Temp Pulse Resp B/P (MAP) Pulse Ox O2 Delivery O2 Flow Rate FiO2 03/30/18 10:08 88 18 132/75 98 Room Air 03/30/18 09:30 80 20 131/74 97 Room Air 03/30/18 07:44 36.8 84 20 134/74 96 Room Air Physical Exam General: Well-developed, well-nourished, elderly white female, in no acute distress. Laying on a bed. Alert and oriented. Skin: Warm and dry with good turgor. No rashes or lesions. No ecchymosis or erythema. The patient is not diaphoretic. No abrasions. HEENT: Normocephalic atraumatic. Eyes PERRLA, EOMI. No conjunctiva or scleral injection. Nares patent bilaterally without turbinate enlargement. No significant drainage. No epistaxis. Oropharynx without erythema or exudate. Uvula midline, oral mucosa moist. No lesions present. Heart: Heart RRR. No MGR. Peripheral pulses are 2+. Lungs: Lungs are clear to auscultation. No crackles rhonchi or wheezing. Good air movement. The patient is able to take a deep breath. Abdomen: Abdomen was inspected, auscultated, and palpated. Bowel sounds present x 4. Soft, generalized left-sided tenderness to palpation. No focal sharp pain. No hepato-splenomegaly. No masses noted. No rebound. No pain over McBurney's point. Left-sided CVA tenderness. Musculoskeletal: Gross motor function of the upper and lower extremities is intact and unremarkable. Neurologic: Gross sensation is intact across the upper and lower extremities by soft touch. Medical Decision & Procedures ER Provider Diagnostic Interpretation: Acute abdominal x-ray series with chest film was obtained. This was read by radiology as suggestive of emphysema. No focal infiltrate to suggest pneumonia. Moderate stool burden. cholelithiasis is also seen. Films were reviewed by me. Laboratory Results 03/30/18 09:07 Red Blood Count 4.92, Mean Corpuscular Volume 91.3, Mean Corpuscular Hemoglobin 29.7, Mean Corpuscular Hemoglobin Concent 32.5, Mean Platelet Volume 9.1, Neutrophils (%) (Auto) 64.2, Lymphocytes (%) (Auto) 26.1, Monocytes (%) (Auto) 7.9, Eosinophils (%) (Auto) 1.3, Basophils (%) (Auto) 0.3, Neutrophils # (Auto) 3.89, Lymphocytes # (Auto) 1.58, Monocytes # (Auto) 0.48, Eosinophils # (Auto) 0.08, Basophils # (Auto) 0.02 03/30/18 08:12 03/30/18 09:07 Test 03/30/18 08:12 03/30/18 08:30 03/30/18 09:07 Anion Gap 8.0 mmol/L (3-11) Est Creatinine Clear Calc Drug Dose 58.6 ml/min Estimated GFR () 88.8 Estimated GFR (Non- 76.6 BUN/Creatinine Ratio 10.7 (10-20) Calcium Level 9.3 mg/dl (8.5-10.1) Total Bilirubin 0.5 mg/dl (0.2-1) Alanine Aminotransferase (ALT/SGPT) 18 U/L (12-78) Alkaline Phosphatase 60 U/L (45-117) Total Protein 7.9 gm/dl (6.4-8.2) Albumin 3.8 gm/dl (3.4-5.0) Globulin 4.1 gm/dl (2.5-4.0) Albumin/Globulin Ratio 0.9 (0.9-2) Urine Color YELLOW Urine Appearance CLEAR (CLEAR) Urine pH 7.5 (4.5-7.5) Urine Specific Albers 1.002 (1.000-1.030) Urine Protein NEG (NEG) Urine Glucose (UA) NEG (NEG) Urine Ketones NEG (NEG) Urine Occult Blood TRACE (NEG) Urine Nitrite NEG (NEG) Urine Bilirubin NEG (NEG) Urine Urobilinogen NEG (NEG) Urine Leukocyte Esterase NEG (NEG) Urine WBC (Auto) 0 /hpf (0-5) Urine RBC (Auto) 5-10 /hpf (0-4) Urine Hyaline Casts (Auto) 0 /lpf (0-5) Urine Epithelial Cells (Auto) 5-10 /lpf (0-5) Urine Bacteria (Auto) NEG (NEG) White Blood Count 6.06 K/uL (4.8-10.8) Red Blood Count 4.92 M/uL (4.2-5.4) Hemoglobin 14.6 g/dL (12.0-16.0) Hematocrit 44.9 % (37-47) Mean Corpuscular Volume 91.3 fL (80-100) Mean Corpuscular Hemoglobin 29.7 pg (25-34) Mean Corpuscular Hemoglobin Concent 32.5 g/dl (32-36) Platelet Count 287 K/uL (130-400) Mean Platelet Volume 9.1 fL (7.4-10.4) Neutrophils (%) (Auto) 64.2 % Lymphocytes (%) (Auto) 26.1 % Monocytes (%) (Auto) 7.9 % Eosinophils (%) (Auto) 1.3 % Basophils (%) (Auto) 0.3 % Neutrophils # (Auto) 3.89 K/uL (1.4-6.5) Lymphocytes # (Auto) 1.58 K/uL (1.2-3.4) Monocytes # (Auto) 0.48 K/uL (0.11-0.59) Eosinophils # (Auto) 0.08 K/uL (0-0.5) Basophils # (Auto) 0.02 K/uL (0-0.2) RDW Standard Deviation 45.8 fL (36.4-46.3) RDW Coefficient of Variation 13.8 % (11.5-14.5) Immature Granulocyte % (Auto) 0.2 % Immature Granulocyte # (Auto) 0.01 K/uL (0.00-0.02) Aspartate Amino Transf (AST/SGOT) 11 U/L (15-37) CBC, UA and chemistry panel were obtained. They are unremarkable. Trace occult blood in the urine but no bacteria. ED Course Patient and her were educated regarding today's findings. Conservative care measures were discussed. IV was established. Labs were obtained. Radiographic imaging of her abdomen was obtained. I did offer the patient a motility agent such as MiraLAX as well as an enema. She declined. I did suggest magnesium citrate that could be done at home or a fleets enema that could be done at home. She was agreeable to this. Continue with her stool softeners. Maintain hydration. Follow-up with her PCP. Return to the ED for any acute worsening of symptoms. Patient was seen in conjunction with Dr. Pompa, who also evaluated the patient and concurred with today's diagnosis and treatment plan. Medical Decision Possibility of small bowel obstruction, diverticulitis, diverticulosis, appendicitis, UTI, kidney stone, and lumbar strain were considered among others. [place] Drug Monitoring Program Search Results: no issues identified Impression Primary Impression: Constipation Departure Information Dispostion Home / Self-Care Condition GOOD Forms HOME CARE DOCUMENTATION FORM, IMPORTANT VISIT INFORMATION Patient Instructions Constipation, My [facility] Additional Instructions Maintain hydration You may use MiraLAX, mineral oil, Dulcolax, fleets enema, or magnesium citrate soda to assist in moving your bowels Return to the ED for any acute worsening of pain or inability to void Problem Qualifiers Primary Impression: Constipation Constipation type: unspecified constipation type Qualified Codes: K59.00 - Constipation, unspecified
== END 2018-03-30 10:15 | disposition home or self-care (01) ==
LOC: C.EDB 07:42
DX: K59.00 Constipation, unspecified (principal); R10.9 Unspecified abdominal pain; M54.5 Low back pain; Z87.19 Personal history of other diseases of the digestive system; Z87.828 Personal history of other (healed) physical injury and trauma; Z87.891 Personal history of nicotine dependence

== ENCOUNTER 2020-04-05 05:23 | Inpatient (IN) ==
--- NOTE | 2020-03-31 15:07 | Anesthesiology Consultation ---
Date of Service March 31, 2020 Assessment & Plan (1) Encounter for pre-operative examination: Patient not reached for RN PAT assessment at time of chart review. PMH obtained from review of records. Will need to review PMH/meds/allergies AM DOS if top carrier not completed. No travel assessment done at this time, COVID exposure risk unknown. COVID testing done 03/31 at [facility], results are currently pending. If not resulted by DOS consider Stewart vs rule at [facility] discretion. Chart Review Chart Review: Acceptable Risk for Surgery (pending evaluation of clinical status AM DOS) and Patient NOT seen in Pre Admission Testing History Surgery Operation Date: 04/05/20 07:00 Proposed Procedures p Laparoscopic Cholecystectomy - Robert Naylor MD, FACS Height/Weight Height: 5 ft 4 in Weight: 56.7 kg (as of 09/17/18) Allergies Allergy/AdvReac Type Severity Reaction Status Date / Time povidone-iodine Allergy Intermediate ITCHING Verified 03/02/20 08:32 [From Betadine] soap [From Betadine] Allergy Intermediate ITCHING Verified 03/02/20 08:32 nickel AdvReac Intermediate IRRITATED Verified 03/02/20 08:32 AND ITCHY Medications Home Medications Medication Instructions Recorded Confirmed Last Taken docusate sodium [Stool Softener] 100 mg PO DAILY 09/17/18 03/02/20 09/13/18 albuterol sulfate 90 mcg/actuation 2 puffs INHALATION Q6H PRN #18 gm 01/21/20 03/02/20 Unknown aerosol inhaler Past Medical History Medical History Asthma allergy induced Constipation Mild cognitive impairment Positive Lyme disease serology Tubular adenoma of colon Past Family History Family History Mother Lung cancer Father Renal cancer Sister Renal cancer Past Surgical History Surgical History H/O colonoscopy (~09/2018) H/O inguinal hernia repair (12/31/16) Right groin exploration with reduction of incarceratedsmall bowel and repair of femoral hernia with a plug of mesh 12/31/16 Dr. Marte History of open reduction and internal fixation (ORIF) procedure RIGHT ELBOW History of tonsillectomy Social History Smoking Status: Former smoker tobacco type: cigarettes Hx Alcohol Use: No Alcohol type: wine alcohol intake frequency: holidays/special occasions only Hx Substance Use: No substance use type: does not use Testing Laboratory Results 03/24/20 WBC: 5.68 H/H: 14.0/44.1 PLATELETS: 311 SODIUM: 143 POTASSIUM: 3.6 CHLORIDE: 108 CO2: 30 BUN: 10 CREATININE: 0.72 GLUCOSE: 102 Electrocardiogram Date: 03/24/20 Sinus rhythm at 90 bpm with premature supraventricular complexes. Incomplete right bundle branch block. Possible inferior infarct (cited on or before 12/31/2016) Nonspecific ST abnormality Compared with EKG of 12/31/2016, premature supraventricular complexes are now present, ST now depressed in anterior leads. *EKG reviewed with Dr. Olivarez. ST depression felt not to be significant. Pt has no known cardiac history.
[2020-04-05] MEDS ORDERED: cefUROXime 1,500 MG in DEXTROSE 5% 100 ML IV SCH (06:00)
[2020-04-05] MEDS ORDERED: LR 15ML/HR IV SCH (06:00)
--- NOTE | 2020-04-05 06:08 | History & Physical Bridge Note ---
Date of Service April 05, 2020 History & Physical Bridge Note I have examined the patient, reviewed the History & Physical and in the interval since the performance of the History & Physical I have noted the following changes of clinical significance: no changes noted
[2020-04-05] MEDS ORDERED: BUPIVACAINE 0.5 % 5 MG/1 ML MPF 30ML VIAL ONE (06:41)
[2020-04-05] MEDS ORDERED: LIDOCAINE HCL 2% 2 ML VIAL/AMP(20MG/ML) INFIL ONE (06:44)
[2020-04-05] MEDS ORDERED: MIDAZOLAM HCL 1 MG/ML 2ML VIAL ONE (06:44)
[2020-04-05] MEDS ORDERED: DEXAMETHASONE SOD INJ 4 MG/ML VIAL ONE (06:44)
[2020-04-05] MEDS ORDERED: GLYCOPYRROLATE 0.2 MG/ML VIAL ONE ×2 (06:44→07:53)
[2020-04-05] MEDS ORDERED: ROCURONIUM BROMIDE 10 MG/ML 5 ML VIAL IV ONE (06:44)
[2020-04-05] MEDS ORDERED: PROPOFOL IV EMULSION 10 MG/ML 20 ML VIAL IV ONE (06:44)
[2020-04-05] MEDS ORDERED: ONDANSETRON INJ 2 MG/ML 2 ML VIAL ONE (06:44)
[2020-04-05] MEDS ORDERED: NEOSTIGMINE METHYLSULFATE 5 MG/5 ML SYR ONE (06:44)
[2020-04-05] MEDS ORDERED: fentaNYL citrate 100 MCG/2 ML VIAL ONE (06:45)
[2020-04-05] MEDS ORDERED: ePHEDrine sulfate 50 MG/ML AMP IV PRN (06:52)
[2020-04-05] MEDS ORDERED: ONDANSETRON INJ 2 MG/ML 2 ML VIAL IV PRN ×2 (06:52→07:48)
[2020-04-05] MEDS ORDERED: ATROPINE SULFATE 0.1 MG/ML 10ML SYR IV PRN (06:52)
[2020-04-05] MEDS ORDERED: fentaNYL citrate 100 MCG/2 ML VIAL IV PRN (06:52)
[2020-04-05] MEDS ORDERED: PROMETHAZINE HCL 6.25 MG in SODIUM CHLORIDE 0.9% 50 ML IV PRN (06:52)
[2020-04-05] MEDS ORDERED: ACETAMINOPHEN 1000 MG/100 ML IV IV ONE (07:37)
[2020-04-05] MEDS ORDERED: ACETAMINOPHEN 1,000 MG/100 ML VIAL IV ONE (07:45)
--- NOTE | 2020-04-05 07:45 | Post Operative Brief Note ---
PG Immediate Post Op with CF Date of Surgery April 05, 2020 Pre & Post Diagnosis Operation Date: 04/05/20 07:00 Pre-Op Diagnosis: Biliary Colic Post-Op Diagnosis: Biliary Colic I identified the patient and participated in the time-out.: Yes Procedure Operation Date: 04/05/20 07:00 Actual Procedures p Laparoscopic Cholecystectomy(Not Applicable) - Robert Naylor MD, FACS Surgeon Robert Naylor MD, FACS Petroleum Analyst Mabel Harris Estimated Blood Loss 5 Findings Consistent with Post-Op Diagnosis Specimens Specimen Description: A. Gallbladder
[2020-04-05] MEDS ORDERED: HYDROCODONE/ACETAMOPHEN 5/325MG TAB PO PRN ×2 (07:46)
[2020-04-05] MEDS ORDERED: MoRPHine SULFATE 2 MG/ML CARP IV PRN ×2 (07:48)
[2020-04-05] MEDS ORDERED: PROMETHAZINE HCL 12.5 MG in SODIUM CHLORIDE 0.9% 50 ML IV PRN (07:48)
[2020-04-05] MEDS ORDERED: LACTATED RINGER'S 1,000 ML IV SCH (08:00)
--- NOTE | 2020-04-05 08:12 | Operative Report (OR) ---
DATE OF OPERATION: 04/05/2020 NAME OF THE OPERATION: Laparoscopic cholecystectomy. PREOPERATIVE DIAGNOSIS: Biliary colic. POSTOPERATIVE DIAGNOSIS: Biliary colic. STAFF SURGEON: Robert Nayolr MD WATER SAFETY INSTRUCTOR: Stefanie Harris PA-C. ANESTHESIA: General. FINDINGS: The patient had a severely distended gallbladder with very large multiple gallstones. DESCRIPTION OF PROCEDURE: The patient was brought into the operating room and placed on the operating table in supine position. Her abdomen was prepped and draped in usual fashion. Pneumatic stockings, orogastric tube were placed. My speech language pathologist assistant helped with prepping, draping, removal of the gallbladder and closure of the wounds. A 0.5% plain Marcaine was used to anesthetize all incisions. Incision was made above the umbilicus, carrying dissection down to the fascia, placing a Veress needle producing pneumoperitoneum, placing an 11 mm port. Under visualization, three 5 mm ports were placed, one cephalad and two laterally. The patient had a very large liver. Her gallbladder was very large and distended. It was retracted. Dissection was carried out the elizabeth hepatis, identifying the cystic duct and cystic artery. I did decompress the gallbladder of bile prior to dissection. The cystic duct was clipped and transected, the cystic artery clipped and transected, and the gallbladder dissected away from the liver bed in the usual fashion. After appropriate irrigation and hemostasis, the gallbladder was placed in an Endobag. I did have to enlarge the fascial defect at the umbilicus to remove the gallbladder because of the very large stones. It was removed intact. At this point, the fascia at the umbilicus closed using 0 PDS suture, subcutaneous tissue reapproximated using 2-0 plain suture and the skin reapproximated using subcuticular 4-0 Monocryl with Dermabond. The patient was transferred to recovery area in stable condition. I attest to the content of the Intraoperative Record and any orders documented therein. Any exception s are noted below.
--- NOTE | 2020-04-05 08:52 | Anesthesiology Progress Note ---
Date of Service April 05, 2020 Anesthesia Post Procedure Vital Signs Vital Signs: Temp Pulse Pulse Resp BP Pulse Ox 04/05/20 08:35 36.4 C L 83 18 118/55 L 100 04/05/20 08:25 86 18 126/66 100 04/05/20 08:15 91 H 18 119/69 100 04/05/20 08:08 36.3 C L 94 H 18 135/65 99 04/05/20 06:03 37 C 85 20 139/76 97 Transfer of Care Handoff Completed per policy Notes Mental Status: alert / awake / arousable Patient Amnestic to Procedure: Yes Nausea / Vomiting: adequately controlled Pain: adequately controlled Airway Patency, RR, SpO2: stable & adequate BP & HR: stable & adequate Hydration State: stable & adequate Anesthetic Complications: no major complications apparent
--- NOTE | 2020-04-05 09:35 | Hospitalist Consultation ---
Date of Consultation April 05, 2020 Assessment & Plan (1) S/P laparoscopic cholecystectomy: Post-op management as per Surgery (2) Biliary colic: - Pain management, bowel regimen and DVT ppx per the primary team - PT/OT consults - Follow am CBC to monitor for acute blood loss (3) Tubular adenoma of colon: - Hx of such found with 0.5 cm polyp found in the ascending colon, colonoscopy 09/20/18 - scheduled for repeat c-scope in [address] Leblanc as outpt (4) Asthma: - Hx of such, stable, albuterol inh prn ordered (5) Mild cognitive impairment: - Stable (6) Constipation: - Stable, chronic, cont docusate sodium 100 mg HS. Eating a diet with more fiber seems to help. (7) DVT prophylaxis: - teds Dispo: From home, likely to remain in the hospital x 1 days, dc per primary team. Thank you for involving us in the care of Mrs. Aguero. Please do not hesitate to call with questions or concerns. At this time medicine service will sign off. Supervising Physician Co-Signing Physician Notes PA Supervision Note: I personally saw and examined the patient. I verified all rashid points and agree with JERRI Deshpande with the following exceptions and/or additions: Pt doing very well post op. Has mild abd bloating but overall feels so much better than even yesterday before the surgery.Denies CP or SOB, no headache or lightheadedness, no N/V. Is yulissa reg diet. History and ROS reviewed Vitals reviewed NAD, AAOx3 RRR no mgr CTAB no wcr Abd +BS soft NT, mild distension, three lap incisions with Dermabond in place Ext no calf tenderness or edema, 2+ DP pulses SKin no rashes 74 yo female here for lap ines for biliary colic, doing very well Plan as above Hospitalist Service will sign off-please feel free to reconsult for new or acute issues. History of Present Illness Reason for Consultation: Medical management Requesting Physician: Dr. Naylor Attending Physician: Robert Naylor MD, [facility] History of Present Illness This is a 74 yo F with PMHx of colon cancer, Lyme disease, mild cognitive impairment, constipation, allergy induced asthma who presents for elective laparoscopic cholecystectomy by Dr. Naylor on 04/05/2020. She is doing very well at bedside, states " I feel better now than what I did whenever I came in this morning". She denies abdominal pain, but has minor bloating, no flatus yet, has not yet trialed oral intake as she has just gotten up into the room. Her daughter is present at bedside, and granddaughter is a nurse who works here and came to visit her at the end of our visit. Pt has no acute complaints. She tells me about paco tomatoes and that she has a bunch to do when she goes home. Allergies Allergy/AdvReac Type Severity Reaction Status Date / Time povidone-iodine Allergy Intermediate ITCHING Verified 04/05/20 06:00 [From Betadine] soap [From Betadine] Allergy Intermediate ITCHING Verified 04/05/20 06:00 nickel AdvReac Intermediate IRRITATED Verified 04/05/20 06:00 AND ITCHY Home Medications Home Medications Medication Instructions Recorded Confirmed Type docusate sodium [Stool Softener] 100 mg PO HS 09/17/18 04/05/20 History albuterol sulfate 90 mcg/actuation 2 puffs INHALATION Q6H PRN #18 gm 01/21/20 04/05/20 Rx aerosol inhaler eyi-utqpynnviqj-hcisreqsseyut 2 tab PO UD PRN 04/01/20 04/05/20 History [Tylenol Allergy Sinus Day Time] Patient History Medical History (Updated 04/05/20 @ 09:30 by Kimberli Deshpande PA-C) Arthritis Asthma allergy induced Constipation Mild cognitive impairment Positive Lyme disease serology Tubular adenoma of colon Surgical History (Updated 04/05/20 @ 09:30 by Kimberli Deshpande PA-C) H/O colonoscopy (~09/2018) H/O inguinal hernia repair (12/31/16) Right groin exploration with reduction of incarceratedsmall bowel and repair of femoral hernia with a plug of mesh 12/31/16 Dr. Marte History of open reduction and internal fixation (ORIF) procedure RIGHT ELBOW History of tonsillectomy S/P laparoscopic cholecystectomy (04/05/20) Laparoscopic cholecystectomy 04/05/20 Dr. 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 Other Information That Helps Us Care for You: No Feels Safe at Home: Yes Safety Concerns: Feels Safe At This Time Dental Care, Regularly: No Seatbelt Use: always Review of Systems Review of Systems: Constitutional: No fever, sweats or chills Eyes: No diplopia, no worsening or blurred vision ENT: normal hearing, no trouble swallowing Respiratory: No cough, sputum, dyspnea at rest or on exertion Cardiovascular: No chest pain, tightness or palpitations Abdomen: No pain, nausea, vomiting, diarrhea, hx of constipation Musculoskeletal: No joint pain, calf pain, swelling Neurologic: No weakness, numbness/tingling, or balance problems Psychiatric: No anxiety or depression Skin: No rash or itch Physical Exam Physical Exam: General: awake, alert, no apparent distress Head: Normocephalic, atraumatic ENT: PERRL, EOMI, no pharyngeal exudate, mucous membranes moist Chest: Clear to auscultation, on room air, no adventitious breath sounds Cardiac: Regular rate and rhythm, no murmur, no JVD, normal peripheral pulses, good capillary refill Abdominal: + incision sites c/d/i, no surrounding erythema, +hypoactive BS x 4 quadrants, soft, nontender to palpation, no rebound, guarding or tenderness Extremities: Normal inspection, no peripheral edema or erythema, calfs nontender to palpation Psych: Normal mood and affect Neuro: AAO x 3, no gross motor deficits, speech is clear, no peripheral sensory deficits Results & Data Results & Data ([facility]) Vital Signs (Past 12 Hours) Vital Signs Temp Pulse Pulse Resp BP Pulse Ox 04/05/20 09:00 36.4 C L 85 16 102/51 L 91 04/05/20 08:50 86 16 112/63 95 04/05/20 08:35 36.4 C L 83 18 118/55 L 100 04/05/20 08:25 86 18 126/66 100 04/05/20 08:15 91 H 18 119/69 100 04/05/20 08:08 36.3 C L 94 H 18 135/65 99 04/05/20 06:03 37 C 85 20 139/76 97 PG Care Time/CCT Total # of Minutes Spent Total Time Spent with Patient: Total time spent is greater than 50% in coor dination of care (as documented) at patient's floor/unit and/or counseling patient: Coding Level of Care Code 19359 Inpt Consult Level 3 Diagnoses S/P laparoscopic cholecystectomy Z90.49 Biliary colic K80.50 Tubular adenoma of colon D12.6 Asthma J45.909 Mild cognitive impairment G31.84 Constipation K59.00 DVT prophylaxis Z29.9
[2020-04-05] MEDS ORDERED: ALBUTEROL HFA 8 GM INHALER INH PRN (17:59)
[2020-04-05] MEDS: ACETAMINOPHEN 325 MG TAB PO PRN (19:58)
[2020-04-05] MEDS ORDERED: DOCUSATE SODIUM 100 MG CAP PO SCH (21:00)
[2020-04-06 09:20] LABS: Hematocrit (blood only) 40.3 % (37-47); Hemoglobin 12.8 g/dL (12.0-16.0); Mean Corpuscular Hemoglobin 29.2 pg (25-34); Mean Corpuscular Hgb Conc 31.8 g/dL (32-36); Mean Platelet Volume 9.2 fL (7.4-10.4); Platelet Count 265 K/uL (130-400); RDW Coefficient of Variation 14.2 % (11.5-14.5); Red Blood Count 4.38 M/uL (4.2-5.4); White Blood Count 6.92 K/uL (4.8-10.8)
--- NOTE | 2020-04-06 09:32 | Discharge Summary (DS) ---
PRINCIPAL DIAGNOSES: Chronic cholecystitis and biliary colic. PROCEDURES: The patient underwent laparoscopic cholecystectomy. HISTORY OF PRESENT ILLNESS: The patient is a 74-year-old female who has been having right sided abdominal pain and was found to have a very large gallbladder and distended with multiple stones. She was brought in the hospital on 04/05/2020 where she underwent laparoscopic cholecystectomy, which she tolerated very well and it showed severe distention of the gallbladder with multiple very large stones. She has done quite well and is felt stable for discharge home today to be followed in the surgical clinic within 1-2 weeks.
[2020-04-06 09:40] LABS: Albumin Level 3.5 gm/dl (3.4-5.0); BUN Creatinine Ratio 9.6 (10-20); Calcium 9.2 mg/dl (8.5-10.1); Creatinine Clr Calc Pharmacy 48.4 ml/min; Est GFR (African American) 79.9; Potassium 3.4 mmol/L (3.5-5.1)
[2020-04-06 09:43] LABS: Bilirubin,Total 0.5 mg/dl (0.2-1); Globulin 3.5 gm/dl (2.5-4.0)
[2020-04-06] MEDS: ACETAMINOPHEN 325 MG TAB PO PRN (10:34)
== END 2020-04-06 11:30 | disposition home or self-care (01) | DRG 419 ==
LOC: ASU 05:23 → 3W 06:48

== ENCOUNTER 2020-06-23 15:26 | Observation (INO) ==
[2020-06-23] MEDS ORDERED: methylPREDNISolone 125 MG/2 ML VIAL IV STA (15:52)
[2020-06-23] MEDS ORDERED: ALBUTEROL 0.083% NEBU SOLN 3 ML VIAL NEB STA (15:52)
--- NOTE | 2020-06-23 16:20 | Emergency Department Note ---
Impression & Plan COPD exacerbation, Hypercapnia, Hypoxia ED Provider Note NAME: CHEY FORRESTER AGE: 74 SEX: F : 1945 ARRIVES VIA: Ambulance INFORMANT: Patient ED PROVIDER(S): Walker Guevara DO CHIEF COMPLAINT: Shortness of breath HPI: Patient is a 74-year-old female who presents to the ER for shortness of breath. She notes all of her symptoms started about 1 PM today. It was sudden onset. She tried her nebs but can't get her breath. She was brought in by EMS. Given 3 rounds of duo nebs without improvement. She denies any chest pain. No runny nose or sore throat. Does have some congestion but this is always there. No belly pain, nausea, vomiting or diarrhea. No recent trips or travel. No exposure to anyone with Covid. ROS: See above HPI for pertinent positives & negatives. A total of 10 systems reviewed and were otherwise negative. PAST MEDICAL HISTORY:See Below PAST SURGICAL HISTORY:See Below FAMILY HISTORY:See Below SOCIAL HISTORY:See Below HOME MEDICATIONS:See Below ALLERGIES:See Below VITALS:See Below PHYSICAL EXAMINATION: GENERAL: Sitting up in bed, alert, ill-appearing, moderate distress EYE EXAM: normal conjunctiva. OROPHARYNX: no exudate, no erythema, lips, buccal mucosa, and tongue normal and mucous membranes are moist NECK: supple, no nuchal rigidity, no adenopathy, non-tender LUNGS: Wheezing bilateral with poor air movement. Normal chest wall mechanics HEART: Tachycardic, S1 normal and S2 normal ABDOMEN: abdomen soft, non-tender, normo-active bowel sounds, no masses, no rebound or guarding. UPPER EXTREMITIES: upper extremities are grossly normal. LOWER EXTREMITIES: No pitting edema. Calves are equal bilateral NEURO EXAM: Normal sensorium, cranial nerves II-XII grossly intact, normal speech, no gross weakness of arms, no gross weakness of legs. MEDICAL DECISION MAKING: Patient is a 74-year-old female with past medical history of COPD and asthma that presents the ER for shortness of breath. Upon arrival she is in significant respiratory distress brought in by EMS. She was placed on BiPAP as she was hypoxic. IV was established blood work was obtained. Labs show no significant leukocytosis or anemia. INR was unremarkable. BMP with LFTs bilirubin and troponin was negative. Lipase was normal. VBG with a pH of 7.25. CO2 of 71. D-dimer was elevated and CT angio of the chest was performed and was unremarkable. Portable AP upright 1 view of the chest was performed initially and showed no focal infiltrate. Covid was negative. She was given an hour-long neb treatment as well as IV steroids and was updated bedside. Discussed with the hospitalist for further evaluation. She is significantly improved on BiPAP as well as with the nebs and steroids. Triage Nursing notes reviewed. Prior medical records reviewed Vital Signs: reviewed and remarkable for hypoxic, tachycardic, tachypneic and hypertensive Differential diagnosis: Differential diagnoses includes but is not limited to pneumonia, bronchitis, COPD/Asthma exacerbation, pneumothorax, pulmonary embolism, congestive heart failure, acute coronary syndrome ER treatment provided: See below Diagnostics interpreted by me: ECG: Sinus tachycardia rate of 112 Normal axis Poor baseline Right bundle branch block Nonspecific ST wave changes in the septal leads Cardiac Monitoring: An order was placed for continuous cardiac monitoring. The monitor shows a rate of 110 with sinus rhythm. Laboratory studies: As stated above and show below. Imaging studies: CT angio of the chest shows no focal infiltrate Portable AP upright 1 view of the chest shows no focal infiltrate Consultation(s): Discussed with Dr. Bernardo Bergman for further evaluation ED COURSE: Procedures: none Critical Care: I have personally spent 45 minutes of critical care time in the direct management of this patient. This includes bedside care, interpretation of diagnostic studies, and testing, discussion with consultants, patient, and family members, and other required patient management activities. This 45 minutes is in excess of all separately billable procedures. Past Med/Surg History Medical History Arthritis Asthma allergy induced Constipation Mild cognitive impairment Positive Lyme disease serology Tubular adenoma of colon Surgical History H/O colonoscopy (~09/2018) H/O inguinal hernia repair (12/31/16) Right groin exploration with reduction of incarceratedsmall bowel and repair of femoral hernia with a plug of mesh 12/31/16 Dr. Marte History of open reduction and internal fixation (ORIF) procedure RIGHT ELBOW History of tonsillectomy S/P laparoscopic cholecystectomy (04/05/20) Laparoscopic cholecystectomy 04/05/20 Dr. 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 Feels Safe at Home: Yes Dental Care, Regularly: No Seatbelt Use: always Assistive Devices: Denture - Upper and Glasses Allergies Allergies Allergy/AdvReac Type Severity Reaction Status Date / Time povidone-iodine Allergy Intermediate ITCHING Verified 06/23/20 18:18 [From Betadine] soap [From Betadine] Allergy Intermediate ITCHING Verified 06/23/20 18:18 nickel AdvReac Intermediate IRRITATED Verified 06/23/20 18:18 AND ITCHY Home Meds Home Medications Medication Instructions Recorded Confirmed docusate sodium [Stool Softener] 100 mg PO HS 09/17/18 06/23/20 axd-gkwbrxfubvw-zdikmadqlddoe 2 tab PO UD PRN 04/01/20 06/23/20 Previous Rx's Medication Instructions Recorded albuterol sulfate 90 mcg/actuation 2 inh INHALATION Q6H PRN #18 g 06/23/20 aerosol inhaler Results & Data (ED) Vital Signs Vital Signs - 24 hr 06/23/20 15:40 06/23/20 15:49 06/23/20 15:55 Temperature 36.8 C Temperature Source Oral Pulse Rate 117 H Pulse Rate [Apical] Respiratory Rate 36 H Respiratory Effort / Characteristics Labored Respiratory Depth Respiratory Pattern Blood Pressure 146/83 H Blood Pressure [Left Arm] Blood Pressure Mean 104 Blood Pressure Mean [Left Arm] Pulse Oximetry 97 84 L Oxygen Delivery Method Nasal Cannula Room Air Oxygen Flow Rate 4 Fraction of Inspired Oxygen SaO2/FiO2 Ratio Sepsis Recent Fever Within 48 Hours No Sepsis New/Unexplained Change in Mental Status N/A Sepsis Action Taken by Nursing Physician Notified 06/23/20 16:09 06/23/20 16:11 06/23/20 16:17 Temperature Temperature Source Pulse Rate 114 H Pulse Rate [Apical] 114 H 112 H Respiratory Rate 28 H 28 H 22 Respiratory Effort / Characteristics Spontaneous Accessory Muscle Use Labored Short of Breath Spontaneous Accessory Muscle Use Labored Short of Breath Respiratory Depth Normal Respiratory Pattern Tachypnea Blood Pressure Blood Pressure [Left Arm] 130/72 Blood Pressure Mean Blood Pressure Mean [Left Arm] 91 Pulse Oximetry 100 40 L 100 Oxygen Delivery Method BiPAP BiPAP Nebulizer Oxygen Flow Rate 8 Fraction of Inspired Oxygen 40 40 40 SaO2/FiO2 Ratio 250 Sepsis Recent Fever Within 48 Hours Sepsis New/Unexplained Change in Mental Status Sepsis Action Taken by Nursing 06/23/20 17:00 06/23/20 18:00 Temperature Temperature Source Pulse Rate Pulse Rate [Apical] 106 H 108 H Respiratory Rate 24 18 Respiratory Effort / Characteristics Respiratory Depth Respiratory Pattern Blood Pressure Blood Pressure [Left Arm] 125/71 128/68 Blood Pressure Mean Blood Pressure Mean [Left Arm] 89 88 Pulse Oximetry 100 99 Oxygen Delivery Method BiPAP BiPAP Oxygen Flow Rate Fraction of Inspired Oxygen 40 40 SaO2/FiO2 Ratio 250 247 Sepsis Recent Fever Within 48 Hours Sepsis New/Unexplained Change in Mental Status Sepsis Action Taken by Nursing Laboratory Data Result diagrams: 06/23/20 15:40 06/23/20 15:40 Lab Results 06/23/20 06/23/20 06/23/20 Range/Units 15:40 15:40 15:40 WBC 8.30 (4.8-10.8) K/uL RBC 4.80 (4.2-5.4) M/uL Hgb 13.9 (12.0-16.0) g/dL Hct 44.7 (37-47) % MCV 93.1 (80-100) fL MCH 29.0 (25-34) pg MCHC 31.1 L (32-36) g/dL RDW Std Deviation 48.7 H (36.4-46.3) fL RDW Coeff of Solo 14.2 (11.5-14.5) % Plt Count 334 (130-400) K/uL MPV 9.1 (7.4-10.4) fL Immature Gran % (Auto) 0.1 % Neut % (Auto) 50.6 % Lymph % (Auto) 39.5 % Taney % (Auto) 6.6 % Eos % (Auto) 3.0 % Baso % (Auto) 0.2 % Neut # (Auto) 4.19 (1.4-6.5) K/uL Lymph # (Auto) 3.28 (1.2-3.4) K/uL Taney # (Auto) 0.55 (0.11-0.59) K/uL Eos # (Auto) 0.25 (0-0.5) K/uL Baso # (Auto) 0.02 (0-0.2) K/uL Immature Gran # (Auto) 0.01 (0.00-0.02) K/uL PT 10.9 (9.0-12.0) Seconds INR 1.0 (0.9-1.1) APTT 25.2 (21.0-31.0) Seconds PTT Ratio 0.9 D-Dimer 560 H* (0-500) ug/L FEU VBG pH (7.36-7.41) VBG pCO2 (38-50) mmHg VBG pO2 mmHg VBG HCO3 mmol/L VBG O2 Saturation % VBG Base Excess mEq/L Barometric Pressure mm/Hg Sodium 140 (136-145) mmol/L Potassium 3.7 (3.5-5.1) mmol/L Chloride 107 (98-107) mmol/L Carbon Dioxide 30 (21-32) mmol/L Anion Gap 3.0 (3-11) BUN 9 (7-18) mg/dl Creatinine 0.76 (0.6-1.2) mg/dl Est Cr Clr Drug Dosing 52.3 ml/min Est GFR ( Amer) 88.9 Est GFR (Non-Af Amer) 76.7 BUN/Creatinine Ratio 11.8 (10-20) Glucose 136 H (70-99) mg/dl Calcium 8.9 (8.5-10.1) mg/dl Total Bilirubin 0.2 (0.2-1) mg/dl AST 14 L (15-37) U/L ALT 17 (12-78) U/L Alkaline Phosphatase 56 (45-117) U/L Troponin I < 0.015 (0-0.045) ng/ml Total Protein 7.6 (6.4-8.2) gm/dl Albumin 4.1 (3.4-5.0) gm/dl Globulin 3.5 (2.5-4.0) gm/dl Albumin/Globulin Ratio 1.2 (0.9-2) Lipase 94 (73-393) U/L COVID-19 Eval Order COVID-19 PCR (Negative) 06/23/20 06/23/20 06/23/20 Range/Units 15:40 15:40 16:22 WBC (4.8-10.8) K/uL RBC (4.2-5.4) M/uL Hgb (12.0-16.0) g/dL Hct (37-47) % MCV (80-100) fL MCH (25-34) pg MCHC (32-36) g/dL RDW Std Deviation (36.4-46.3) fL RDW Coeff of Solo (11.5-14.5) % Plt Count (130-400) K/uL MPV (7.4-10.4) fL Immature Gran % (Auto) % Neut % (Auto) % Lymph % (Auto) % Taney % (Auto) % Eos % (Auto) % Baso % (Auto) % Neut # (Auto) (1.4-6.5) K/uL Lymph # (Auto) (1.2-3.4) K/uL Taney # (Auto) (0.11-0.59) K/uL Eos # (Auto) (0-0.5) K/uL Baso # (Auto) (0-0.2) K/uL Immature Gran # (Auto) (0.00-0.02) K/uL PT (9.0-12.0) Seconds INR (0.9-1.1) APTT (21.0-31.0) Seconds PTT Ratio D-Dimer (0-500) ug/L FEU VBG pH 7.25 L (7.36-7.41) VBG pCO2 71 H (38-50) mmHg VBG pO2 34 mmHg VBG HCO3 30 mmol/L VBG O2 Saturation < 60.0 % VBG Base Excess 1.4 mEq/L Barometric Pressure 732.5 mm/Hg Sodium (136-145) mmol/L Potassium (3.5-5.1) mmol/L Chloride (98-107) mmol/L Carbon Dioxide (21-32) mmol/L Anion Gap (3-11) BUN (7-18) mg/dl Creatinine (0.6-1.2) mg/dl Est Cr Clr Drug Dosing ml/min Est GFR ( Amer) Est GFR (Non-Af Amer) BUN/Creatinine Ratio (10-20) Glucose (70-99) mg/dl Calcium (8.5-10.1) mg/dl Total Bilirubin (0.2-1) mg/dl AST (15-37) U/L ALT (12-78) U/L Alkaline Phosphatase (45-117) U/L Troponin I (0-0.045) ng/ml Total Protein (6.4-8.2) gm/dl Albumin (3.4-5.0) gm/dl Globulin (2.5-4.0) gm/dl Albumin/Globulin Ratio (0.9-2) Lipase (73-393) U/L COVID-19 Eval Order Covid19 Done at [facility] COVID-19 PCR NEGATIVE (Negative) Administered Medications Azithromycin 500 mg/ Dextrose 255 mls @ 125 mls/hr IV ONE ONE Stop: 06/23/20 20:29 Last Admin: 06/23/20 19:07 Dose: 125 mls/hr Documented by: [id number] Discontinued Medications Albuterol (Albuterol 0.083% Nebu Soln 3 Ml Vial) 10 mg NEB NOW STA Stop: 06/23/20 15:53 Last Admin: 06/23/20 16:05 Dose: 10 mg Documented by: [id number] Ioversol (Optiray 320 125ml) 118 ml IV ONCE ONE Stop: 06/23/20 17:48 Last Admin: 06/23/20 17:48 Dose: 1 ml Documented by: [id number] Methylprednisolone (Methylprednisolone 125 Mg/2 Ml Vial) 60 mg IV NOW STA Stop: 06/23/20 15:53 Last Admin: 06/23/20 16:13 Dose: 60 mg Documented by: [id number] Discharge Plan Visit Data Chief Complaint: Shortness of Breath/Dyspnea Stated Complaint: SOB ED Provider: Walker Guevara Discharge Problem: COPD exacerbation, Hypercapnia, Hypoxia Patient Disposition: Admitted As Inpatient Discharge Instructions Interventions: ED Discharge Assessment Last Done: 06/23/20 19:25
[2020-06-23 16:21] LABS: Basophils # (auto) 0.02 K/uL (0-0.2); Basophils % (auto) 0.2 %; Eosinophils # (auto) 0.25 K/uL (0-0.5); Hematocrit (blood only) 44.7 % (37-47); Hemoglobin 13.9 g/dL (12.0-16.0); Immature Granulocytes # (auto) 0.01 K/uL (0.00-0.02); Immature Granulocytes % (auto) 0.1 %; Lymphocytes # (auto) 3.28 K/uL (1.2-3.4); Lymphocytes % (auto) 39.5 %; Mean Corpuscular Hgb Conc 31.1 g/dL (32-36); Mean Corpuscular Volume 93.1 fL (80-100); Mean Platelet Volume 9.1 fL (7.4-10.4); Monocytes # (auto) 0.55 K/uL (0.11-0.59); Monocytes % (auto) 6.6 %; Neutrophils # (auto) 4.19 K/uL (1.4-6.5); Neutrophils % (auto) 50.6 %; Platelet Count 334 K/uL (130-400); RDW Coefficient of Variation 14.2 % (11.5-14.5); RDW Standard Deviation 48.7 fL (36.4-46.3)
[2020-06-23 16:31] LABS: Partial Thromboplastin Ratio 0.9; Partial Thromboplastin Time 25.2 Seconds (21.0-31.0); Prothrombin Time 10.9 Seconds (9.0-12.0)
[2020-06-23 16:38] LABS: Alanine Aminotransferase 17 U/L (12-78); Albumin Level 4.1 gm/dl (3.4-5.0); Aspartate Aminotransferase 14 U/L (15-37); BUN Creatinine Ratio 11.8 (10-20); Blood Urea Nitrogen 9 mg/dl (7-18); Calcium 8.9 mg/dl (8.5-10.1); Carbon Dioxide 30 mmol/L (21-32); Chloride 107 mmol/L (98-107); Creatinine Clr Calc Pharmacy 52.3 ml/min; Est GFR (African American) 88.9; Est GFR (Non-African American) 76.7; Glucose 136 mg/dl (70-99); Lipase 94 U/L (73-393); Potassium 3.7 mmol/L (3.5-5.1); Sodium 140 mmol/L (136-145)
[2020-06-23 16:43] LABS: Albumin Globulin Ratio 1.2 (0.9-2); Alkaline Phosphatase 56 U/L (45-117); Bilirubin,Total 0.2 mg/dl (0.2-1); Globulin 3.5 gm/dl (2.5-4.0); Total Protein 7.6 gm/dl (6.4-8.2); Troponin I < 0.015 ng/ml (0-0.045)
[2020-06-23 16:46] LABS: Base Excess VBG 1.4 mEq/L; HCO3 VBG 30 mmol/L; PCO2 VBG 71 mmHg (38-50); PO2 VBG 34 mmHg; pH VBG 7.25 (7.36-7.41)
[2020-06-23 16:48] LABS: Oxygen Saturation VBG < 60.0 %
[2020-06-23 17:00] LABS: D Dimer 560 ug/L FEU (0-500)
--- NOTE | 2020-06-23 17:04 | XRay Report ---
XR chest 1V portable CLINICAL HISTORY: Atypical chest pain. COMPARISON STUDY: Chest radiograph March 30, 2018. FINDINGS: Lung volumes are normal. Lungs are clear. There is no pneumothorax or pleural effusion. Car diac size is normal. Mediastinal contours are normal. There is no evidence for pulmonary edema. Skinf old projects over the left upper hemithorax. Linear right basilar opacity reflects atelectasis. IMPRESSION: No acute cardiopulmonary findings. No significant change in appearance of the chest. ACT 112: Negative or not required by law. Electronically signed by: Dylan Mireles M.D. 06/23/2020 5:02 PM
[2020-06-23] MEDS ORDERED: OPTIRAY 320 125ml IV ONE (17:47)
--- NOTE | 2020-06-23 18:15 | CT Scan Report ---
CT ANGIOGRAPHY OF THE CHEST, PULMONARY EMBOLUS PROTOCOL CLINICAL HISTORY: SOB hypoxic and +dd COMPARISON STUDY: Chest radiograph March 30, 2018 and June 23, 2020. TECHNIQUE: Following IV administration of 118 mL of Optiray-320, helical axial images of the chest we re obtained utilizing the pulmonary embolus protocol. Maximal intensity projections and sagittal and coronal reformats were viewed on an independent 3D workstation. IV contrast was administered withou t complication. Automated exposure control was utilized for the study. A dose lowering technique wa s utilized adhering to the principles of ALARA. CT DOSE: 258.30 mGy.cm FINDINGS: No pulmonary emboli are identified. There is no thoracic aortic dissection. Size of the he art is normal. There is no pericardial effusion. No pneumothorax or pleural effusion is present. No c onsolidation is identified to suggest pneumonia. Subpleural opacities reflect atelectasis. There is m oderate emphysema. Multiple thoracic spine compression fractures are likely old. There is an old ster nal fracture. No thoracic lymphadenopathy is present. There are old bilateral rib fractures. IMPRESSION: 1. No pulmonary emboli identified. 2. No acute findings within the chest. 3. Emphysema. 4. Numerous thoracic spine compression fractures which are likely old. ACT 112: Negative or not required by law. Electronically signed by: Dylan Mireles M.D. 06/23/2020 6:14 PM
[2020-06-23] MEDS ORDERED: AZITHROMYCIN 500 MG in DEXTROSE 5% 250 ML IV ONE (18:27)
--- NOTE | 2020-06-23 19:09 | History & Physical Report ---
Date of Service June 23, 2020 Assessment & Plan (1) COPD exacerbation: never had PFTs, but age/smoking hx/presentation most c/w COPD exac and will manage as such -zithromax, duonebs, steroids -bipap/supportive care - repeat ABG and if pCO2 improving can see how she does off bipap; if worsens/same will definitely need to continue (2) Hypercapnia: see above, repeat ABG ordered (3) Somatic dysfunction of rib: OMT as above (4) DVT prophylaxis: lovenox (5) Discharge planning issues: [facility]/DNI d/w pt; also notes granddtr is decision maker (3rd floor nurse tony) anticipate home once doing better History of Present Illness Chief Complaint: sob Primary Care Provider: Demetrice Kelly, DO very pleasant 74F in usual state of health then mid afternoon abrupt onset dyspnea. on directed questioning and late recall she does note that with weather like this she typically feels nasal/sinus congestion and wodners if that's what set things off. no f/c/s. no sick contacts. no wood burner. no clear allergens. really just felt like she couldn't breathe- felt very scared about thsi too. went outside - cooler air didnt' help - was able to get 's attention and came to ER. notes long hx of smoking - just quit ~3-4yrs ago but long pack year hx. never had PFTs. notes that she has asthma as a labeled diagnosis but notes that more of a COPD picture would fit. just has albuterol prn but also ran out of that so didn't have at home to take. Allergies Allergy/AdvReac Type Severity Reaction Status Date / Time povidone-iodine Allergy Intermediate ITCHING Verified 06/23/20 18:18 [From Betadine] soap [From Betadine] Allergy Intermediate ITCHING Verified 06/23/20 18:18 nickel AdvReac Intermediate IRRITATED Verified 06/23/20 18:18 AND ITCHY Home Medications Home Medications Medication Instructions Recorded Confirmed Type docusate sodium [Stool Softener] 100 mg PO HS 09/17/18 06/23/20 History bpb-eiunwxpffao-cnzhrzecujnfn 2 tab PO UD PRN 04/01/20 06/23/20 History albuterol sulfate 90 mcg/actuation 2 inh INHALATION Q6H PRN #18 g 06/23/20 06/23/20 Rx aerosol inhaler Past Med/Surg History Medical History Arthritis Asthma allergy induced Constipation Mild cognitive impairment Positive Lyme disease serology Tubular adenoma of colon Surgical History H/O colonoscopy (~09/2018) H/O inguinal hernia repair (12/31/16) Right groin exploration with reduction of incarceratedsmall bowel and repair of femoral hernia with a plug of mesh 12/31/16 Dr. Marte History of open reduction and internal fixation (ORIF) procedure RIGHT ELBOW History of tonsillectomy S/P laparoscopic cholecystectomy (04/05/20) Laparoscopic cholecystectomy 04/05/20 Dr. 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 sl tachycardic on monitor lungs - markedly diminished - no r/r/w no accessory muscles good effort and on bipap no conversational dyspnea abd soft nd nt no masses or organomegaly ext - no c/c/e no calf tenderness neuro cn 2-12 grossly intact, gross motor/sensory intact wtihout notable focal deficits skin - no rashes no pallor or icterus msk/ost - R>L Tspine paraspinals and intercostals high tone/decreased ROM - direct myofascial and balanced ligamentous tension - improved tissue texture/pt tolerated well mental - good recent and remote recall normal mood and affect good judgement and insight Results & Data Results & Data ([facility]) Vital Signs (Past 12 Hours) Vital Signs Temp Pulse Pulse Resp BP BP Pulse Ox 06/23/20 18:00 108 H 18 128/68 99 06/23/20 17:00 106 H 24 125/71 100 06/23/20 16:17 112 H 22 130/72 100 06/23/20 16:11 114 H 28 H 40 L 06/23/20 16:09 114 H 28 H 100 06/23/20 15:49 98.2 F 117 H 36 H 146/83 H 84 L 06/23/20 15:40 97 Code Status & VTE Plan VTE Prophylaxis Plan VTE Prophylaxis will be ordered: Yes PG Care Time/CCT Total # of Minutes Spent Total Time Spent with Patient: Total time spent is greater than 50% in coordination of care (as documented) at patient's floor/unit and/or counseling patient: Coding Level of Care Code 03331 Initial Inpt Care Lvl 3 Diagnoses COPD exacerbation J44.1 Hypercapnia R06.89 Somatic dysfunction of rib M99.08 DVT prophylaxis Z29.9 Discharge planning issues Z02.9
[2020-06-23] MEDS ORDERED: ACETAMINOPHEN 325 MG TAB PO PRN (20:01)
[2020-06-23] MEDS ORDERED: ONDANSETRON INJ 2 MG/ML 2 ML VIAL IV PRN (20:01)
[2020-06-23] MEDS ORDERED: ALUMINUM/MAGNESIUM SUSP 30 ML UDC PO PRN (20:01)
[2020-06-23] MEDS ORDERED: MAGNESIUM HYDROXIDE SUSP 30 ML UDC PO PRN (20:01)
[2020-06-23 20:33] LABS: Base Excess ABG -0.1 mEq/L (-9-1.8); HCO3 ABG 26 mmol/L (19-24); PCO2 ABG 49 mmHg (35-46); PO2 ABG 77 mmHg (80-95); pH ABG 7.34 (7.35-7.45)
[2020-06-23 20:34] LABS: Allen Test POS (Pos)
[2020-06-23 20:35] LABS: Hemoglobin 12.9 g/dL (12.0-16.0); Immature Granulocytes # (auto) 0.01 K/uL (0.00-0.02); Immature Granulocytes % (auto) 0.1 %; Lymphocytes # (auto) 0.25 K/uL (1.2-3.4); Lymphocytes % (auto) 2.5 %; Mean Corpuscular Hemoglobin 29.3 pg (25-34); Mean Corpuscular Hgb Conc 31.5 g/dL (32-36); Monocytes # (auto) 0.06 K/uL (0.11-0.59); Monocytes % (auto) 0.6 %; Neutrophils # (auto) 9.75 K/uL (1.4-6.5); Neutrophils % (auto) 96.8 %; Platelet Count 285 K/uL (130-400); RDW Coefficient of Variation 14.2 % (11.5-14.5); RDW Standard Deviation 48.7 fL (36.4-46.3); Red Blood Count 4.41 M/uL (4.2-5.4); White Blood Count 10.07 K/uL (4.8-10.8)
[2020-06-23] MEDS: ALBUT/IPRATROP 3MG/0.5MG NEB 3 ML VIAL NEB SCH ×2 (20:35→23:11)
[2020-06-23 20:59] LABS: BUN Creatinine Ratio 12.1 (10-20); Calcium 8.8 mg/dl (8.5-10.1); Est GFR (African American) 86.2; Est GFR (Non-African American) 74.4; Potassium 3.8 mmol/L (3.5-5.1)
[2020-06-23] MEDS ORDERED: DOCUSATE SODIUM 100 MG CAP PO SCH (21:00)
[2020-06-23] MEDS ORDERED: methylPREDNISolone 125 MG/2 ML VIAL IV SCH (21:00)
[2020-06-23] MEDS ORDERED: ENOXAPARIN INJ 40 MG/0.4 ML SYR SQ SCH (21:00)
[2020-06-23] MEDS: methylPREDNISolone 60 MG in SYRINGE 0 ML IV SCH (22:03)
[2020-06-24] MEDS: ALBUT/IPRATROP 3MG/0.5MG NEB 3 ML VIAL NEB SCH ×4 (02:17→15:11)
[2020-06-24 06:03] LABS: Hematocrit (blood only) 38.7 % (37-47); Hemoglobin 12.1 g/dL (12.0-16.0); Immature Granulocytes # (auto) 0.01 K/uL (0.00-0.02); Immature Granulocytes % (auto) 0.2 %; Lymphocytes # (auto) 0.44 K/uL (1.2-3.4); Lymphocytes % (auto) 8.2 %; Mean Corpuscular Hemoglobin 28.7 pg (25-34); Mean Corpuscular Hgb Conc 31.3 g/dL (32-36); Mean Corpuscular Volume 91.9 fL (80-100); Mean Platelet Volume 9.2 fL (7.4-10.4); Monocytes # (auto) 0.08 K/uL (0.11-0.59); Monocytes % (auto) 1.5 %; Neutrophils # (auto) 4.83 K/uL (1.4-6.5); Neutrophils % (auto) 90.1 %; Nucleated RBC # (auto) 0.03 K/uL (0-0); Nucleated RBC % (auto) 0.5 %; Platelet Count 273 K/uL (130-400); RDW Coefficient of Variation 14.2 % (11.5-14.5); RDW Standard Deviation 47.4 fL (36.4-46.3); Red Blood Count 4.21 M/uL (4.2-5.4); White Blood Count 5.36 K/uL (4.8-10.8)
[2020-06-24 06:29] LABS: BUN Creatinine Ratio 12.7 (10-20); Calcium 8.6 mg/dl (8.5-10.1); Creatinine Clr Calc Pharmacy 44.7 ml/min; Est GFR (African American) 81.1; Potassium 4.1 mmol/L (3.5-5.1)
[2020-06-24] MEDS: methylPREDNISolone 60 MG in SYRINGE 0 ML IV SCH ×2 (08:52→13:29)
[2020-06-24] MEDS ORDERED: AZITHROMYCIN 250 MG in DEXTROSE 5% 250 ML IV SCH (09:00)
--- NOTE | 2020-06-24 10:40 | Electrocardiogram Report ---
Test Reason : Blood Pressure : / mmHG Vent. Rate : 112 BPM Atrial Rate : 112 BPM P-R Int : 142 ms QRS Dur : 098 ms QT Int : 342 ms P-R-T Axes : 075 -12 039 degrees QTc Int : 466 ms Poor data quality, interpretation may be adversely affected Sinus tachycardia RSR' or QR pattern in V1 suggests right ventricular conduction delay Cannot rule out Inferior infarct (cited on or before 31-DEC-2016) Abnormal ECG When compared with ECG of 24-MAR-2020 12:06, Premature supraventricular complexes are no longer Present Confirmed by Brian Estrada ([id number]) on 06/24/2020 10:40:01 AM Referred By: Confirmed By:Brian Estrada
--- NOTE | 2020-06-24 18:15 | Discharge Summary ---
Date of Service June 24, 2020 Admission HPI Per Admitting Provider very pleasant 74F in usual state of health then mid afternoon abrupt onset dyspnea. on directed questioning and late recall she does note that with weather like this she typically feels nasal/sinus congestion and wodners if that's what set things off. no f/c/s. no sick contacts. no wood burner. no clear allergens. really just felt like she couldn't breathe- felt very scared about thsi too. went outside - cooler air didnt' help - was able to get 's attention and came to ER. notes long hx of smoking - just quit ~3-4yrs ago but long pack year hx. never had PFTs. notes that she has asthma as a labeled diagnosis but notes that more of a COPD picture would fit. just has albuterol prn but also ran out of that so didn't have at home to take. Principal Diagnosis (presumed) COPD exacerbation Acute respiratory failure with hypercapnia, resolved Discharge Exam gen aaox3 pleasant nad heent nc at mmm lungs quiet but clear b/l and better air entry than yesterday no r/r/w good effort no accessory muscles no conversational dyspnea. no pallor or icterus. gait slow and stable. 91% on room air at rest, 90% after a walk of about 100ft. no visible dyspnea before, during, or after the walk. Discharge Data Allergies Allergy/AdvReac Type Severity Reaction Status Date / Time povidone-iodine Allergy Intermediate ITCHING Verified 06/23/20 18:18 [From Betadine] soap [From Betadine] Allergy Intermediate ITCHING Verified 06/23/20 18:18 nickel AdvReac Intermediate IRRITATED Verified 06/23/20 18:18 AND ITCHY Consultations 06/23/20 17:39 ED Decision to Admit Stat Ordered Studies 06/23/20 17:01 CT angio chest PE protocol Stat Hospital Course (1) COPD exacerbation: never had PFTs, but age/smoking hx/presentation most c/w COPD exac and managed as such -zithromax, duonebs, steroids - improved -bipap initially required. quickly weaned - now off O2 and stable for home. lack of dyspnea w SpO2 90-91 suggests strongly an element of chronicity to this. -finish tapering course of prednisone -finish zithromax 5 day course ---for now treat as presumed moderate to severe copd -spiriva daily -symbicort bid (emphasized in person and in writing these are scheduled NOT prn) -albuterol prn -PFTs in about a month (or once she's better) and if no COPD or not as severe as presumed, then can reduce inhaler regimen accordingly (2) Hypercapnia: see above, repeat ABG improved (3) Somatic dysfunction of rib: OMT done on admission (4) DVT prophylaxis: lovenox utilized during stay (5) Discharge planning issues: stable for home Total Time Total Time Spent Total Time Spent (In Minutes): >30 Discharge Plan Discharge Items Patient Disposition: Home - Self-Care Reason For Visit: DYSPNEA Discharge Diagnosis: COPD exacerbation Activity: Resume your previous activity Non-emergency contact: Primary Care Provider Call non-emergency contact if: you have any medication questions, your symptoms worsen and your temperature is above 101 Follow-up/Referrals: Demetrice Kelly DO [Primary Care Provider] - Diet: Regular Addtl Attending Provider Instructions: COPD -given the way you looked, felt, and examined, it is most likely that you have COPD (chronic obstructive pulmonary disease) -- this is a chronic problem of not being able to move air as well when you breathe - usually brought on by smoking. of note - it's fantastic that you're an ex-smoker for several years now, as it makes it way easier to treat -as we've been discussing, right now we'll have to presume that this is COPD - everything about it looks that way. however, you really only truly diagnose COPD based off of what are called "pulmonary function tests." - these are basically lung volume measurements where they'll measure how much air you move when you breathe in, blow out, breathe rapidly, etc. we'll want to wait until you're feeling better (probably at least a month from now) to do them, because when you check when someone is still sick, the test always looks worse than it really is. -COPD is mostly managed with regular use of inhalers. since it's not clear how severe your COPD might be, but you were really sick when you arrived, we'll start with the higher end regimen of inhalers, and then depending on the lung function tests and depending on how you're feeling, Dr Kelly can knock things down if possible. -there are three main classes of inhalers we use for COPD -anticholinergic (LAMA) - these basically reduce inflammation in your lungs by reducing how much mucous gets made (remember as we discussed - about one out of every five cells lining your lungs are a mucous factory - so turning them down reduces how much "crud" sits in your airways). this class of inhalers is statistically the most important to use with COPD. for you, we'll start w spiriva - it works well, comes as a generic, and is only once a day. remember - IT WILL NOT WORK IF YOU USE IT AN " NEEDED" INHALER - TAKE IT EVERY DAY, WHETHER YOU FEEL GOOD, BAD, OR IN BETWEEN -long acting beta agonist (LABA) - this class of medicines is basically like a long-acting formulation of the albuterol that is in your rescue inhaler. it works to open up airways to allow more air to pass through - you'll take it twice a day every day - it's one of the medicines that is in the Symbicort. (TWICE A DAY EVERY DAY FOR THIS ONE) -inhaled steroid - the steroid will lay down a layer on the lining of your lungs, reducing inflammation in a way that is different than the anticholinergic, and complimentary to what it is doing. this is the other medicine that is in the Symbicort - again twice a day every day. because steroid on your tongue could set you up for thrush - rinse your mouth out after using this one *your albuterol (ventolin, proventil) is a rescue inhaler. you can take it up to every 4 hours as needed- but it works quickly and wears off quickly. it's there for when you feel tight like you cant breathe, feel wheezy, or have a tight cough. remember - this inhaler is to COPD what a nitro pill is to a cardiac patient - it doesn't change the disease, it just buys relief from symptoms. so your daily regimen will be: -spiriva in the morning (every morning) -symbicort in the morning and the evening every day (twice a day every day) and rinse your mouth out after using it -albuterol up to every 4 hours but only as needed for shortness of breath/tightness/wheezing. (the next week or two you might see that you need it a good bit - then things should fade to not needing it nearly as much) COPD exacerbation -in addition to the above regimen for "all the time" we'll have you finish out a tapering course of steroids (prednisone) and a course of antibiotics (azithromycin) to get you over the current exacerbation ---prednisone will start tomorrow, then it will be 60mg (6 tabs) for 2 days, 50mg (5 tabs) for 2 days, 40mg (4 tabs) for 2 days, 30mg (3 tabs) for 2 days, 20mg (2 tabs) for 2 days, 10mg (1 tab) for 2 days ----it's OK to take all the tabs at once each day, and i'd definitely take them earlier in the day -the azithromycin is easier - 250mg tomorrow, sunday, and sunday. I'd recommend you stop the decongestant with pseudoephedrine - taking that regularly at all can be a bit hard on heart and blood pressure - it's a pretty potent stimulant. if you still need to work on the nasal congestion, actually something along the lines of generic flonase (fluticasone) nasal spray works pretty well for most people after they use it for a bit Pending Studies at Discharge: No Stand-Alone Forms: My [facility], Smoking Cessation Medications and DC Order Prescriptions: New prednisone 10 mg tablet 10 mg PO UD Qty: 42 RF: 0 Spiriva with HandiHaler 18 mcg capsule, w/inhalation device 1 cap inhalation DAILY Qty: 30 RF: 0 budesonide-formoterol [Symbicort] 160-4.5 mcg/actuation HFA aerosol inhaler 2 inh inhalation BID Qty: 10.2 RF: 0 azithromycin [Zithromax] 250 mg tablet 250 mg PO DAILY Qty: 3 RF: 0 Continued albuterol sulfate 90 mcg/actuation HFA aerosol inhaler 2 inh inhalation Q6H PRN (Reason: SOB/WHEEZING) Qty: 18 RF: 3 docusate sodium [Stool Softener] 100 mg Capsule 100 mg PO HS RF: 0 Discontinued tkz-[id number]-[id number] 2-30-500 mg Tablet 2 tab PO UD PRN (Reason: Sinus Symptoms) RF: 0 Discharge Orders: Discharge Order (Routine); Ordered 06/24/20 Ordered By: Walker Garnett Admission Data Admit Date/Time: 06/23/20 18:27 Attending Provider: Walker Garnett Admit Provider: Walker Garnett Primary Care Provider: Demetrice Kelly Other Providers: Bernardo Bergman Coding Level of Care Code 44782 OBS Care - Discharge Diagnoses COPD exacerbation J44.1 Hypercapnia R06.89 Somatic dysfunction of rib M99.08 DVT prophylaxis Z29.9 Discharge planning issues Z02.9
[2020-06-25] MEDS: ALBUT/IPRATROP 3MG/0.5MG NEB 3 ML VIAL NEB SCH (01:17)
== END 2020-06-24 19:00 | disposition home or self-care (01) | DRG 190 ==
LOC: ED 15:26 → INTOOBSV 18:27 → 2S 18:27

== ENCOUNTER 2020-11-18 10:06 | Inpatient (IN) ==
[2020-11-18] MEDS ORDERED: ALBUT/IPRATROP 3MG/0.5MG NEB 3 ML VIAL NEB STA (10:26)
[2020-11-18] MEDS ORDERED: methylPREDNISolone 125 MG/2 ML VIAL IV STA (10:26)
--- NOTE | 2020-11-18 10:32 | Emergency Department Note ---
Impression & Plan Respiratory distress, SOB (shortness of breath), COPD exacerbation, Tachycardia ED Provider Note NAME: CHEY FORRESTER AGE: 75 SEX: F : 1945 ARRIVES VIA: Ambulance INFORMANT: [Patient][ems] ED PROVIDER(S): [Balta Garcia MD] CHIEF COMPLAINT: Shortness of breath HISTORY OF PRESENT ILLNESS: The patient is a 75-year-old female who presents to the ED with dyspnea since yesterday. She presents by EMS. In route, the patient was given a 60 mg of IV Solu-Medrol and 3 DuoNeb's. She does not feel improved. Patient does have a history of COPD and had a presentation like this with her last hospitalization. There has been no fever, no real increased cough. She has not had pain across the chest. There has been no vomiting or nausea. She has inhalers at home, no nebulizers. She is not currently on antibiotics or steroids. REVIEW OF SYSTEMS: See HPI for pertinent positives and negatives. A total of ten systems were reviewed and were otherwise negative. PMHx/PSHx: See Below SOCIAL HISTORY: See Below. PHYSICAL EXAM: GENERAL: Patient is in moderate respiratory distress. HEENT: No acute trauma, normocephalic atraumatic, mucous membranes moist, no nasal congestion, no scleral icterus. NECK: No stridor, no adenopathy, no meningismus, trachea is midline. LUNGS: Increased respiratory rate, moderate respiratory distress. Diminished breath sounds with wheezing and some crackles bilaterally. Accessory muscle use noted. HEART: Tachycardic, heart sounds are difficult to auscultate with the lung sounds present. The rhythm does seem regular. ABDOMEN: Soft, nontender, bowel sounds positive, no hernias, no peritonitis. EXTREMITIES: No cyanosis or edema, full range of motion of all the joints without pain or difficulty, no signs for acute trauma. NEUROLOGIC: Oriented x 3, no acute motor or sensory deficits, no focal weakness. SKIN: No rash, no jaundice, no diaphoresis. DIFFERENTIAL DIAGNOSIS: Reactive airway disease, pneumonia, pneumothorax, COPD, COVID-19, influenza, CHF, infection, cardiac ischemia, pulmonary embolism, bronchitis, musculoskeletal, gastrointestinal, as well as other pathologies. EMERGENCY DEPARTMENT COURSE/PROCEDURES: ECG: Indication was shortness of breath. The ECG shows a sinus tachycardia with baseline artifact. There are PACs present. The rate is 123. There is some nonspecific ST change. No ST elevation. The QTc is 478. Continuous Cardiac Monitoring: An order was placed for continuous cardiac monitoring. The monitor shows a rate of 121 with sinus tachycardia. Critical Care Note: I have personally spent 56 minutes of critical care time in the direct management of this patient. This includes bedside care, interpretation of diagnostic studies, and testing, discussion with consultants, patient, and family members, and other required patient management activities. This 56 minutes is in excess of all separately billable procedures. MEDICAL DECISION MAKING: There is no leukocytosis or concerning anemia. There is a normal platelet count. No coagulopathy. No renal failure or significant electrolyte abnormality. ECG showed a sinus tachycardia, no acute ischemia. Cardiac enzyme testing x1 is not consistent with acute cardiac injury. There was no liver enzyme elevation. Covid and influenza testing were negative. Chest film shows COPD, no pneumonia or CHF. On exam, the patient was in respiratory distress, she had minimal air movement, she was wheezing. She was breathing quickly. The patient was placed on BiPAP. She was given an additional DuoNeb. She was given an additional 60 mg of IV Solu-Medrol. With the above treatment, the patient is feeling markedly improved. She looks much more comfortable. The patient appears to be suffering from an exacerbation of COPD. Hospitalization is certainly warranted. I spoke to the patient and case management. The on-call hospitalist was consulted. Past Med/Surg History Medical History Arthritis Asthma allergy induced Constipation Hypoxia Mild cognitive impairment Moderate COPD (chronic obstructive pulmonary disease) Positive Lyme disease serology Tubular adenoma of colon Surgical History H/O colonoscopy (~09/2018) H/O inguinal hernia repair (12/31/16) Right groin exploration with reduction of incarceratedsmall bowel and repair of femoral hernia with a plug of mesh 12/31/16 Dr. Marte History of open reduction and internal fixation (ORIF) procedure RIGHT ELBOW History of tonsillectomy S/P laparoscopic cholecystectomy (04/05/20) Laparoscopic cholecystectomy 04/05/20 Dr. Naylor Family History Mother Lung cancer Father Renal cancer Sister Renal cancer Denies family history of Ovarian cancer Prostate cancer Myocardial infarction Breast cancer Colorectal cancer Social History Smoking Status: Former smoker Age Started Using Tobacco: 14; Age Quit Using Tobacco: 71; Second Hand Exposure: Yes (SPOUSE USED TO SMOKE- AND OCC NOW); Hx Alcohol Use: No Hx Substance Use: No Preferred Language: Armenian Communication Ability: Effective Visual Impairment: Limited Hearing Ability: Normal [place] Required: No Beliefs That Will Affect Care: None marital status: Current Living Situation: Spouse Current Living Situation Comment: home with current occupational status: retired Other Information That Helps Us Care for You: No Feels Safe at Home: Yes Safety Concerns: Feels Safe At This Time Childhood Exposure to Second-Hand Smoke: No Dental Care, Regularly: No Seatbelt Use: always Assistive Devices: None Allergies Allergies Allergy/AdvReac Type Severity Reaction Status Date / Time povidone-iodine Allergy Intermediate ITCHING Verified 11/18/20 11:31 [From Betadine] soap [From Betadine] Allergy Intermediate ITCHING Verified 11/18/20 11:31 nickel AdvReac Intermediate IRRITATED Verified 11/18/20 11:31 AND ITCHY Home Meds Home Medications Medication Instructions Recorded Confirmed docusate sodium [Stool Softener] 100 mg PO HS 09/17/18 11/18/20 acetaminophen [Tylenol Extra 1,000 mg PO Q6H PRN 11/18/20 11/18/20 Strength] Previous Rx's Medication Instructions Recorded fluticasone propionate 50 1 spray INTRANASAL BID PRN #15.8 ml 09/14/20 mcg/actuation nasal spray,suspension albuterol sulfate 90 mcg/actuation 2 inh INHALATION Q6H PRN #18 g 11/04/20 aerosol inhaler Results & Data (ED) Vital Signs Vital Signs - 24 hr 11/18/20 10:30 11/18/20 10:35 11/18/20 10:44 Temperature 37.5 C Temperature Source Oral Pulse Rate 128 H Pulse Rate from SpO2 Sensor Respiratory Rate 34 H Respiratory Effort / Characteristics Labored Short of Breath Tripoding Respiratory Depth Respiratory Pattern Rapid/Deep Blood Pressure 162/81 H Blood Pressure Mean 108 Pulse Oximetry 88 L 93 Oxygen Delivery Method Room Air Nasal Cannula Nasal Cannula Oxygen Flow Rate 4 6 Fraction of Inspired Oxygen Sepsis Recent Fever Within 48 Hours No Sepsis New/Unexplained Change in Mental Status No Sepsis Action Taken by Nursing No Action Required 11/18/20 10:48 11/18/20 10:50 11/18/20 10:55 Temperature Temperature Source Pulse Rate 123 H Pulse Rate from SpO2 Sensor Respiratory Rate 28 H 26 H Respiratory Effort / Characteristics Spontaneous Non-Labored Spontaneous Short of Breath Respiratory Depth Normal Respiratory Pattern Regular Blood Pressure Blood Pressure Mean Pulse Oximetry 98 98 Oxygen Delivery Method BiPAP Oxygen Flow Rate Fraction of Inspired Oxygen 30 30 Sepsis Recent Fever Within 48 Hours Sepsis New/Unexplained Change in Mental Status Sepsis Action Taken by Nursing 11/18/20 11:00 11/18/20 11:30 11/18/20 12:00 Temperature Temperature Source Pulse Rate 119 H 118 H Pulse Rate from SpO2 Sensor 119 H 119 H 112 H Respiratory Rate 25 H 30 H 23 Respiratory Effort / Characteristics Respiratory Depth Respiratory Pattern Blood Pressure 163/74 H 136/83 136/77 Blood Pressure Mean 103 100 96 Pulse Oximetry 99 99 99 Oxygen Delivery Method BiPAP BiPAP BiPAP Oxygen Flow Rate Fraction of Inspired Oxygen Sepsis Recent Fever Within 48 Hours Sepsis New/Unexplained Change in Mental Status Sepsis Action Taken by Nursing 11/18/20 12:30 11/18/20 13:30 Temperature Temperature Source Pulse Rate Pulse Rate from SpO2 Sensor 113 H 117 H Respiratory Rate 38 H 29 H Respiratory Effort / Characteristics Respiratory Depth Respiratory Pattern Blood Pressure 138/76 136/92 Blood Pressure Mean 96 106 Pulse Oximetry 98 93 Oxygen Delivery Method BiPAP Nasal Cannula Oxygen Flow Rate 3 Fraction of Inspired Oxygen Sepsis Recent Fever Within 48 Hours Sepsis New/Unexplained Change in Mental Status Sepsis Action Taken by [facility] Medications Current Medication List: was personally reviewed by me Laboratory Data Attestation: I reviewed the patient's lab results. Result diagrams: 11/18/20 10:30 11/18/20 10:30 Lab Results 11/18/20 11/18/20 11/18/20 Range/Units 10:30 10:30 10:30 WBC 9.49 (4.8-10.8) K/uL RBC 5.11 (4.2-5.4) M/uL Hgb 15.1 (12.0-16.0) g/dL Hct 46.7 (37-47) % MCV 91.4 (80-100) fL MCH 29.5 (25-34) pg MCHC 32.3 (32-36) g/dL RDW Std Deviation 49.0 H (36.4-46.3) fL RDW Coeff of Solo 14.4 (11.5-14.5) % Plt Count 358 (130-400) K/uL MPV 9.0 (7.4-10.4) fL Immature Gran % (Auto) 0.1 % Neut % (Auto) 81.1 % Lymph % (Auto) 13.4 % [place] % (Auto) 5.1 % Eos % (Auto) 0.2 % Baso % (Auto) 0.1 % Neut # (Auto) 7.70 H (1.4-6.5) K/uL Lymph # (Auto) 1.27 (1.2-3.4) K/uL [place] # (Auto) 0.48 (0.11-0.59) K/uL Eos # (Auto) 0.02 (0-0.5) K/uL Baso # (Auto) 0.01 (0-0.2) K/uL Immature Gran # (Auto) 0.01 (0.00-0.02) K/uL PT 10.2 (9.0-12.0) Seconds INR 1.0 (0.9-1.1) APTT 25.3 (21.0-31.0) Seconds PTT Ratio 1.0 Sodium 142 (136-145) mmol/L Potassium 4.1 (3.5-5.1) mmol/L Chloride 107 (98-107) mmol/L Carbon Dioxide 31 (21-32) mmol/L Anion Gap 4.0 (3-11) BUN 9 (7-18) mg/dl Creatinine 0.82 (0.6-1.2) mg/dl Est Cr Clr Drug Dosing 54.7 ml/min Est GFR ( Amer) 80.6 Est GFR (Non-Af Amer) 69.5 BUN/Creatinine Ratio 11.0 (10-20) Glucose 135 H (70-99) mg/dl Calcium 8.9 (8.5-10.1) mg/dl Magnesium 2.2 (1.8-2.4) mg/dl Total Bilirubin 0.4 (0.2-1) mg/dl AST 16 (15-37) U/L ALT 19 (12-78) U/L Alkaline Phosphatase 84 (45-117) U/L Troponin I < 0.015 (0-0.045) ng/ml Total Protein 8.6 H (6.4-8.2) gm/dl Albumin 4.2 (3.4-5.0) gm/dl Globulin 4.4 H (2.5-4.0) gm/dl Albumin/Globulin Ratio 1.0 (0.9-2) COVID-19 Eval Order SARS-CoV-2 (PCR) (Negative) Influenza Type A (PCR) (Neg) Influenza Type B (PCR) (Neg) RSV (RT-PCR) (Neg) 11/18/20 11/18/20 Range/Units 10:49 10:49 WBC (4.8-10.8) K/uL RBC (4.2-5.4) M/uL Hgb (12.0-16.0) g/dL Hct (37-47) % MCV (80-100) fL MCH (25-34) pg MCHC (32-36) g/dL RDW Std Deviation (36.4-46.3) fL RDW Coeff of Solo (11.5-14.5) % Plt Count (130-400) K/uL MPV (7.4-10.4) fL Immature Gran % (Auto) % Neut % (Auto) % Lymph % (Auto) % [place] % (Auto) % Eos % (Auto) % Baso % (Auto) % Neut # (Auto) (1.4-6.5) K/uL Lymph # (Auto) (1.2-3.4) K/uL [place] # (Auto) (0.11-0.59) K/uL Eos # (Auto) (0-0.5) K/uL Baso # (Auto) (0-0.2) K/uL Immature Gran # (Auto) (0.00-0.02) K/uL PT (9.0-12.0) Seconds INR (0.9-1.1) APTT (21.0-31.0) Seconds PTT Ratio Sodium (136-145) mmol/L Potassium (3.5-5.1) mmol/L Chloride (98-107) mmol/L Carbon Dioxide (21-32) mmol/L Anion Gap (3-11) BUN (7-18) mg/dl Creatinine (0.6-1.2) mg/dl Est Cr Clr Drug Dosing ml/min Est GFR ( Amer) Est GFR (Non-Af Amer) BUN/Creatinine Ratio (10-20) Glucose (70-99) mg/dl Calcium (8.5-10.1) mg/dl Magnesium (1.8-2.4) mg/dl Total Bilirubin (0.2-1) mg/dl AST (15-37) U/L ALT (12-78) U/L Alkaline Phosphatase (45-117) U/L Troponin I (0-0.045) ng/ml Total Protein (6.4-8.2) gm/dl Albumin (3.4-5.0) gm/dl Globulin (2.5-4.0) gm/dl Albumin/Globulin Ratio (0.9-2) COVID-19 Eval Order CovFluRsv at [facility] SARS-CoV-2 (PCR) NEGATIVE (Negative) Influenza Type A (PCR) Negative (Neg) Influenza Type B (PCR) Negative (Neg) RSV (RT-PCR) Negative (Neg) Administered Medications Acetaminophen (Acetaminophen 325 Mg Tab) 650 mg PO Q4H PRN PRN Reason: Pain or Fever Stop: 12/18/20 15:02 Last Admin: 11/18/20 15:29 Dose: 650 mg Documented by: [id number] Albuterol (Albuterol Hfa 8 Gm Inhaler) 2 puffs INH Q6R [facility] Stop: 12/18/20 15:29 Last Admin: 11/18/20 16:55 Dose: 2 puffs Documented by: [id number] Amoxicillin/Clavulanate Potassium (Amoxicillin/Clavulanate 875 Mg Tab) 1 tab PO BIDM [facility]; Protocol Stop: 11/28/20 16:59 Last Admin: 11/18/20 16:43 Dose: 1 tab Documented by: [id number] Enoxaparin Sodium (Enoxaparin Inj 40 Mg/0.4 Ml Syr) 40 mg SQ Q24H [facility] Stop: 12/18/20 15:59 Last Admin: 11/18/20 16:43 Dose: 40 mg Documented by: [id number] Methylprednisolone 40 mg/ (Syringe) 0.64 mls @ 1.5 mls/min IV Q8H [facility] Stop: 12/18/20 18:59 Last Admin: 11/18/20 18:24 Dose: 1.5 mls/min Documented by: [id number] Discontinued Medications Albuterol (Albut/Ipratrop 3mg/0.5mg Neb 3 Ml Vial) 3 ml NEB NOW STA Stop: 11/18/20 10:27 Last Admin: 11/18/20 10:47 Dose: 3 ml Documented by: [id number] Methylprednisolone (Methylprednisolone 125 Mg/2 Ml Vial) 60 mg IV NOW STA Stop: 11/18/20 10:27 Last Admin: 11/18/20 11:35 Dose: 60 mg Documented by: [id number] Imaging Data Radiologist's Impression: Chest X-Ray 11/18/20 10:27 SINGLE VIEW CHEST CLINICAL HISTORY: Dyspnea. FINDINGS: An AP, portable, upright chest radiograph is compared to chest x-ray and chest CT dated 06/23/2020. The cardiomediastinal silhouette is unremarkable noting atherosclerotic calcification of the thoracic aorta. Emphysema and chronic interstitial thickening is similar to previous. There is bibasilar scarring/atelectasis. No airspace consolidation or large pleural effusion is identified. No pneumothorax is seen. The skeletal structures are osteopenic. There is chronic posterior matter deformity of the right humerus. IMPRESSION: Emphysematous change with no active disease in the chest. ACT 112: Negative or not required by law. Electronically signed by: Balta Thayer M.D. 11/18/2020 10:56 AM Discharge Plan Visit Data Chief Complaint: Shortness of Breath/Dyspnea ED Provider: Balta Garcia Discharge Problem: Respiratory distress, SOB (shortness of breath), COPD exacerbation, Tachycardia Patient Disposition: Admitted As Inpatient Condition: Serious Discharge Instructions Interventions: ED Discharge Assessment Last Done: 11/18/20 14:33
[2020-11-18 10:47] LABS: Basophils # (auto) 0.01 K/uL (0-0.2); Basophils % (auto) 0.1 %; Eosinophils # (auto) 0.02 K/uL (0-0.5); Eosinophils % (auto) 0.2 %; Hematocrit (blood only) 46.7 % (37-47); Hemoglobin 15.1 g/dL (12.0-16.0); Immature Granulocytes # (auto) 0.01 K/uL (0.00-0.02); Immature Granulocytes % (auto) 0.1 %; Lymphocytes # (auto) 1.27 K/uL (1.2-3.4); Lymphocytes % (auto) 13.4 %; Mean Corpuscular Hemoglobin 29.5 pg (25-34); Mean Corpuscular Hgb Conc 32.3 g/dL (32-36); Mean Corpuscular Volume 91.4 fL (80-100); Monocytes # (auto) 0.48 K/uL (0.11-0.59); Monocytes % (auto) 5.1 %; Neutrophils % (auto) 81.1 %; Platelet Count 358 K/uL (130-400); RDW Coefficient of Variation 14.4 % (11.5-14.5); Red Blood Count 5.11 M/uL (4.2-5.4); White Blood Count 9.49 K/uL (4.8-10.8)
--- NOTE | 2020-11-18 10:57 | XRay Report ---
SINGLE VIEW CHEST CLINICAL HISTORY: Dyspnea. FINDINGS: An AP, portable, upright chest radiograph is compared to chest x-ray and chest CT dated 06/2020. The cardiomediastinal silhouette is unremarkable noting atherosclerotic calcification of the thoracic aorta. Emphysema and chronic interstitial thickening is similar to previous. There is bibas ilar scarring/atelectasis. No airspace consolidation or large pleural effusion is identified. No pneu mothorax is seen. The skeletal structures are osteopenic. There is chronic posterior matter deformity of the right humerus. IMPRESSION: Emphysematous change with no active disease in the chest. ACT 112: Negative or not required by law. Electronically signed by: Balta Thayer M.D. 11/18/2020 10:56 AM
[2020-11-18 11:00] LABS: Partial Thromboplastin Time 25.3 Seconds (21.0-31.0); Prothrombin Time 10.2 Seconds (9.0-12.0)
[2020-11-18 11:12] LABS: Alanine Aminotransferase 19 U/L (12-78); Albumin Level 4.2 gm/dl (3.4-5.0); Aspartate Aminotransferase 16 U/L (15-37); Blood Urea Nitrogen 9 mg/dl (7-18); Calcium 8.9 mg/dl (8.5-10.1); Carbon Dioxide 31 mmol/L (21-32); Chloride 107 mmol/L (98-107); Creatinine Clr Calc Pharmacy 54.7 ml/min; Est GFR (African American) 80.6; Est GFR (Non-African American) 69.5; Glucose 135 mg/dl (70-99); Magnesium 2.2 mg/dl (1.8-2.4); Potassium 4.1 mmol/L (3.5-5.1); Sodium 142 mmol/L (136-145)
[2020-11-18 11:17] LABS: Alkaline Phosphatase 84 U/L (45-117); Bilirubin,Total 0.4 mg/dl (0.2-1); Globulin 4.4 gm/dl (2.5-4.0); Total Protein 8.6 gm/dl (6.4-8.2); Troponin I < 0.015 ng/ml (0-0.045)
[2020-11-18 11:32] LABS: Influenza A virus by PCR Negative (Neg); Influenza B virus by PCR Negative (Neg); RSV by PCR Negative (Neg); SARS CoV2 RNA(COVID-19) InHosp NEGATIVE (Negative)
--- NOTE | 2020-11-18 13:12 | History & Physical Report ---
Date of Service November 18, 2020 Assessment & Plan (1) Sinusitis, acute: Acute sinusitis with postnasal drainage, increasing in breathlessness leading to increased minute ventilation and hypoxia - Patient improved with nebulizers, steroids, and BiPAP - BiPAP weaned off as above, will keep available if needed - NC for SPO2 > 90% - HFNC may be better option if still dyspneic and hypoxic - Augmentin 875 mg Q12 - Albuterol nebs q2 prn and scheduled inhaler q6 hours- can return to PRN usage in morning if improved - Continue methylpred 40 q8- can adjust if needed - Nasal spray prn - Fluticasone 2 sprays each nostril BID for 1-2 days then return to 1 BID or 2 Qd (2) Moderate COPD (chronic obstructive pulmonary disease): As above- Chest Xray reviewed, no acute process emphysematous changes- - Albuterol as above - Patient was previously trialed on Spirva and ? reaction per PCP - Consider adding another muscarinic/LABA if desired - BG checks while on steroids (3) Asthma: As above (4) Mild cognitive impairment: No acute issues- cotninue to follow with PCP History of Present Illness Chief Complaint: could not breathe Primary Care Provider: Demetrice Kelly, DO 75 YOF with past medical history of COPD, tubular adenoma of colon, asthma, normally on just albuterol at home, and fomer smoker. She has been having a 2-3 day history of sinus congestion with drainage to the back of her throat, with a bad taste to her mouth. She denies fevers or chills. She went to her PCP yesterday and was placed on fluticasone nasal spray, doxy and Bactrim. She has had one other episode of this within the last year and was managed with BiPAP, she has never been intubated. Had a similar symptoms in [place] to PCP without hypoxia. Normally a smell or irritant will set off her symptoms, and she can only recall doing out shopping last week where she had an irritating odor that she had to leave the store. She came to the [facility] and was hypoxic to 88 % and RR in the 30's, she was given methylpred 60, Nebulizers, and placed on BiPAP. CXR was done. On my evaluation she had a SPo2 of 100% RR 20's and tachycardic in the 110's. She was able to come off the BiPAP during examination without conversational dyspnea or accessory muscle use. Transitioned to 2.5L NC with SPO2 94%. Allergies Allergy/AdvReac Type Severity Reaction Status Date / Time povidone-iodine Allergy Intermediate ITCHING Verified 11/18/20 11:31 [From Betadine] soap [From Betadine] Allergy Intermediate ITCHING Verified 11/18/20 11:31 nickel AdvReac Intermediate IRRITATED Verified 11/18/20 11:31 AND ITCHY Home Medications Medication Instructions Recorded Confirmed Type docusate sodium [Stool Softener] 100 mg PO HS 09/17/18 11/18/20 History fluticasone propionate 50 1 spray INTRANASAL BID PRN #15.8 ml 09/14/20 11/18/20 Rx mcg/actuation nasal spray,suspension albuterol sulfate 90 mcg/actuation 2 inh INHALATION Q6H PRN #18 g 11/04/20 11/18/20 Rx aerosol inhaler acetaminophen [Tylenol Extra 1,000 mg PO Q6H PRN 11/18/20 11/18/20 History Strength] Past Med/Surg History Medical History Arthritis Asthma allergy induced Constipation Hypoxia Mild cognitive impairment Moderate COPD (chronic obstructive pulmonary disease) Positive Lyme disease serology Tubular adenoma of colon Surgical History H/O colonoscopy (~09/2018) H/O inguinal hernia repair (12/31/16) Right groin exploration with reduction of incarceratedsmall bowel and repair of femoral hernia with a plug of mesh 12/31/16 Dr. Marte History of open reduction and internal fixation (ORIF) procedure RIGHT ELBOW History of tonsillectomy S/P laparoscopic cholecystectomy (04/05/20) Laparoscopic cholecystectomy 04/05/20 Dr. Naylor Family History Mother Lung cancer Father Renal cancer Sister Renal cancer Denies family history of Ovarian cancer Prostate cancer Myocardial infarction Breast cancer Colorectal cancer Social History Smoking Status: Former smoker Age Started Using Tobacco: 14; Age Quit Using Tobacco: 71; Second Hand Exposure: Yes (SPOUSE USED TO SMOKE- AND OCC NOW); Hx Alcohol Use: No Hx Substance Use: No Preferred Language: Tanzanian Communication Ability: Effective Visual Impairment: Limited Hearing Ability: Normal Show Operations Supervisor Required: No Beliefs That Will Affect Care: None marital status: Current Living Situation: Spouse Current Living Situation Comment: home with current occupational status: retired Other Information That Helps Us Care for You: No Feels Safe at Home: Yes Safety Concerns: Feels Safe At This Time Childhood Exposure to Second-Hand Smoke: No Dental Care, Regularly: No Seatbelt Use: always Assistive Devices: Oxygen - Continuous Review of Systems Review of Systems: REVIEW OF SYSTEMS: Constitutional: No fever, sweats or chills Eyes: No diplopia, no worsening or blurred vision ENT: normal hearing, no trouble swallowing Respiratory: (+) cough dyspnea on exertion, wheeze (-) sputum, dyspnea at rest Cardiovascular: No chest pain, tightness or palpitations Abdomen: No pain, nausea, vomiting, diarrhea or constipation Musculoskeletal: No joint pain, calf pain, swelling Neurologic: No weakness, numbness/tingling, or balance problems Psychiatric: No anxiety or depression Skin: No rash or itch Physical Exam Physical Exam: PHYSICAL EXAM: General: awake, alert, no apparent distress Head: Normocephalic, atraumatic ENT: PERRLA, EOMI, no pharyngeal exudate, but with cobblestoning of the hypopharynx, reports clear to yellow nasal drainage, increase pressure with palpation of the maxillary sinuses, mucous membranes dry after BiPAP, Ears not full or painful TM Celestin with normal cone of light. Neuro: AAO x 3, speech clear and appropriate, strength intact bilaterally 5/5, sensation intact and equal all extremities and dermatomes, no pronator drift Chest: equal rise and fall of the chest, no accessory muscle use, no heaves or thrills, Clear to auscultation, on room air, Cardiac: Regular rate and rhythm, telemetry reviewed, skin warm dry, cap refill <3 seconds, peripheral pules +2 no JVD, no murmur, no edema GI: NABS x 4 quadrants, soft, nontender to palpation, no rebound, guarding or tenderness : Spontaneously voiding, no pain, no CVA tenderness, Extremities: Normal inspection, no peripheral edema or erythema, calfs nontender to palpation Psych: Normal mood and affect Skin: no rash or erythema Results & Data Results & Data ([facility]) Vital Signs (Past 12 Hours) Vital Signs Temp Pulse Resp BP Pulse Ox 11/18/20 12:30 38 H 138/76 98 11/18/20 12:00 23 136/77 99 11/18/20 11:30 118 H 30 H 136/83 99 11/18/20 11:00 119 H 25 H 163/74 H 99 11/18/20 10:50 26 H 98 11/18/20 10:48 123 H 28 H 98 11/18/20 10:35 93 11/18/20 10:30 37.5 C 128 H 34 H 162/81 H 88 L Laboratory Results Abnormal lab results 11/18/20 11/18/20 Range/Units 10:30 10:30 RDW Std Deviation 49.0 H (36.4-46.3) fL Neut # (Auto) 7.70 H (1.4-6.5) K/uL Glucose 135 H (70-99) mg/dl Total Protein 8.6 H (6.4-8.2) gm/dl Globulin 4.4 H (2.5-4.0) gm/dl Diagnostic Findings SINGLE VIEW CHEST CLINICAL HISTORY: Dyspnea. FINDINGS: An AP, portable, upright chest radiograph is compared to chest x-ray and chest CT dated 06/23/2020. The cardiomediastinal silhouette is unremarkable noting atherosclerotic calcification of the thoracic aorta. Emphysema and chronic interstitial thickening is similar to previous. There is bibasilar scarring/atelectasis. No airspace consolidation or large pleural effusion is identified. No pneumothorax is seen. The skeletal structures are osteopenic. There is chronic posterior matter deformity of the right humerus. IMPRESSION: Emphysematous change with no active disease in the chest. Medications Administered Discontinued Medications Albuterol (Albut/Ipratrop 3mg/0.5mg Neb 3 Ml Vial) 3 ml NEB NOW STA Stop: 11/18/20 10:27 Last Admin: 11/18/20 10:47 Dose: 3 ml Documented by: [id number] Methylprednisolone (Methylprednisolone 125 Mg/2 Ml Vial) 60 mg IV NOW STA Stop: 11/18/20 10:27 Last Admin: 11/18/20 11:35 Dose: 60 mg Documented by: [id number] Home Medications docusate sodium [Stool Softener] 100 mg PO HS 09/17/18 [History Confirmed 11/18/20] fluticasone propionate 50 mcg/actuation nasal spray,suspension 1 spray INTRANASAL BID PRN #15.8 ml 09/14/20 [Rx Confirmed 11/18/20] albuterol sulfate 90 mcg/actuation aerosol inhaler 2 inh INHALATION Q6H PRN #18 g 11/04/20 [Rx Confirmed 11/18/20] acetaminophen [Tylenol Extra Strength] 1,000 mg PO Q6H PRN 11/18/20 [History Confirmed 11/18/20] Active Medications Albuterol (Albuterol 0.5% Neb Soln 2.5 Mg/0.5 Ml Vial) 2.5 mg NEB Q2H PRN PRN Reason: Shortness Of Breath Or Wheezing Stop: 12/18/20 13:18 Amoxicillin/Clavulanate Potassium (Amoxicillin/Clavulanate 500 Mg Tab) 1 tab PO BIDM DERRELL Stop: 11/28/20 16:59 ECG Additional Comments: Poor data quality, but no acute elevations, will repeat once on the floor. Code Status & VTE Plan Code Status CODE: DNR/DNI - will accept BiPAP VTE: Lovenox 40 subq QD VTE Prophylaxis Plan VTE Prophylaxis will be ordered: Yes Supervising Physician Co-Signing Physician Notes Attending Attestation & Admissio Note: pt seen/examined, chart reviewed, care plan d/w GINNA Diallo. I agree w/ the rashid components of his documentation except - on exam, patient with diffuse b/l end-exp wheezing with poor air movement at bases. 75yo female - former smoker, with known COPD but not typically on oxygen at home - presenting with worsening cough/dyspnea c/w COPD exacerbation. Imaging without discrete pneumonia; COVID testing negative. Initially required BIPAP, hour-long duoneb, etc 2nd to severe wheezing upon ER presentation. Symptoms improved with such, and BIPAP weaned to NC O2. Resting more comfortably during my visit. PMH, PSH, allergies, meds, sochx, famhx - reviewed vitals reviewed afebrile gen- thin, mild retractions, mild tachypnea, but can now speak in full sentences neck - no JVD HEENT - maxillary sinus tenderness b/l, mild swelling over L maxillary sinus to palpation mouth - no thrush heart - tachy, s1 s2 lungs - diffuse b/l wheezing, mild retractions, mild tachypnea abd - soft NT ext - no edema labs reviewed cxr reviewed EKG reviewed A/P: 1. acute hypoxic resp failure 2nd COPD exacerbation 2. acute maxillary sinusitis agree with augmentin for #2 IV steroids, nebs, pulmonary toilet for #1 NC O2 support DVT proph - lovenox Bernardo Workman MD PG Care Time/CCT Total # of Minutes Spent Total Time Spent with Patient: Total time spent is greater than 50% in coordination of care (as documented) at patient's floor/unit and/or counseling patient: Coding Level of Care Code 49832 Initial Inpt Care Lvl 2 Diagnoses Sinusitis, acute J01.00 Recurrence: not specified as recurrent Sinusitis location: maxillary Moderate COPD (chronic obstructive pulmonary disease) J44.9 Asthma J45.909 Asthma complication type: unspecified Asthma persistence: unspecified Asthma severity: moderate Mild cognitive impairment G31.84 (1) Sinusitis, acute Recurrence: not specified as recurrent Sinusitis location: maxillary Qualified Code(s): J01.00 - Acute maxillary sinusitis, unspecified (2) Asthma Asthma complication type: unspecified Asthma persistence: unspecified Asthma severity: moderate Qualified Code(s): J45.909 - Unspecified asthma, uncomplicated
[2020-11-18] MEDS ORDERED: ALBUTEROL 0.5% NEB SOLN 2.5 MG/0.5 ML VIAL NEB PRN (13:19)
[2020-11-18] MEDS ORDERED: ACETAMINOPHEN HOME PACK 500 MG TABLET PO PRN (15:03)
[2020-11-18] MEDS ORDERED: ONDANSETRON INJ 2 MG/ML 2 ML VIAL IV PRN (15:03)
[2020-11-18] MEDS ORDERED: ACETAMINOPHEN 325 MG TAB PO PRN (15:03)
--- NOTE | 2020-11-18 15:57 | Electrocardiogram Report ---
Test Reason : Blood Pressure : / mmHG Vent. Rate : 123 BPM Atrial Rate : 123 BPM P-R Int : 130 ms QRS Dur : 104 ms QT Int : 334 ms P-R-T Axes : 066 -47 008 degrees QTc Int : 478 ms Poor data quality, interpretation may be adversely affected Sinus tachycardia with Premature atrial complexes Inferior-posterior infarct (cited on or before 31-DEC-2016) Abnormal ECG When compared with ECG of 23-JUN-2020 15:36, Premature atrial complexes are now Present Confirmed by Brian Estrada ([id number]) on 11/18/2020 3:57:20 PM Referred By: REFERRED SELF Confirmed By:Brian Estrada
[2020-11-18] MEDS: AMOXICILLIN/CLAVULANATE 875 MG TAB PO SCH (16:43)
[2020-11-18] MEDS: ENOXAPARIN INJ 40 MG/0.4 ML SYR SQ SCH (16:43)
[2020-11-18] MEDS: ALBUTEROL HFA 8 GM INHALER INH SCH ×2 (16:55→19:22)
[2020-11-18] MEDS ORDERED: AMOXICILLIN/CLAVULANATE 500 MG TAB PO SCH (17:00)
[2020-11-18] MEDS: methylPREDNISolone 40 MG in SYRINGE 0 ML IV SCH (18:24)
[2020-11-18] MEDS ORDERED: GLUCAGON FOR INJ 1 MG VIAL SQ PRN (18:51)
[2020-11-18] MEDS ORDERED: GLUCOSE 10 TABS/TUBE PO PRN (18:51)
[2020-11-18] MEDS ORDERED: CARBOHYDRATES FOR HYPOGLYCEMIA PO PRN (18:51)
[2020-11-18] MEDS ORDERED: GLUCOSE 40% GEL 15 GM TUBE PO PRN (18:51)
[2020-11-18] MEDS ORDERED: DEXTROSE 50% 50 ML SYRINGE IV PRN (18:51)
[2020-11-18] MEDS: INSULIN ASPART 100 UNITS/ML 3 ML PEN SC SCH (20:27)
[2020-11-18] MEDS: FLUTICASONE PROPIONATE NA SPR 16 GM BTL NAE SCH (22:11)
[2020-11-19] MEDS: ALBUTEROL HFA 8 GM INHALER INH SCH ×2 (00:23→07:25)
[2020-11-19] MEDS: ALBUTEROL 0.5% NEB SOLN 2.5 MG/0.5 ML VIAL NEB PRN ×2 (03:44→07:25)
[2020-11-19] MEDS: methylPREDNISolone 40 MG in SYRINGE 0 ML IV SCH ×2 (04:12→11:17)
[2020-11-19 05:45] LABS: Hematocrit (blood only) 44.6 % (37-47); Hemoglobin 14.2 g/dL (12.0-16.0); Immature Granulocytes # (auto) 0.01 K/uL (0.00-0.02); Immature Granulocytes % (auto) 0.1 %; Lymphocytes # (auto) 0.73 K/uL (1.2-3.4); Lymphocytes % (auto) 9.9 %; Mean Corpuscular Hemoglobin 29.2 pg (25-34); Mean Corpuscular Hgb Conc 31.8 g/dL (32-36); Mean Corpuscular Volume 91.6 fL (80-100); Mean Platelet Volume 9.1 fL (7.4-10.4); Monocytes # (auto) 0.71 K/uL (0.11-0.59); Monocytes % (auto) 9.7 %; Neutrophils % (auto) 80.3 %; Platelet Count 294 K/uL (130-400); RDW Coefficient of Variation 14.3 % (11.5-14.5); RDW Standard Deviation 48.6 fL (36.4-46.3); Red Blood Count 4.87 M/uL (4.2-5.4); White Blood Count 7.35 K/uL (4.8-10.8)
[2020-11-19 06:21] LABS: BUN Creatinine Ratio 20.7 (10-20); Calcium 9.3 mg/dl (8.5-10.1); Creatinine Clr Calc Pharmacy 63.2 ml/min; Est GFR (African American) 95.9; Est GFR (Non-African American) 82.7; Magnesium 2.3 mg/dl (1.8-2.4); Potassium 4.1 mmol/L (3.5-5.1)
[2020-11-19] MEDS ORDERED: ALBUTEROL 0.083% NEBU SOLN 3 ML VIAL ONE (07:20)
[2020-11-19] MEDS: AMOXICILLIN/CLAVULANATE 875 MG TAB PO SCH ×2 (08:11→17:38)
[2020-11-19] MEDS: FLUTICASONE PROPIONATE NA SPR 16 GM BTL NAE SCH ×2 (08:12→21:42)
[2020-11-19] MEDS: INSULIN ASPART 100 UNITS/ML 3 ML PEN SC SCH ×4 (08:21→22:04)
[2020-11-19] MEDS ORDERED: ALBUTEROL HFA 8 GM INHALER INH PRN (12:02)
[2020-11-19] MEDS: ENOXAPARIN INJ 40 MG/0.4 ML SYR SQ SCH (16:49)
--- NOTE | 2020-11-19 22:06 | Hospitalist Progress Note ---
Date of Service November 19, 2020 Assessment & Plan (1) Sinusitis, acute: Acute sinusitis with postnasal drainage, increasing in breathlessness leading to increased minute ventilation and hypoxia - Patient improved with nebulizers, steroids, and BiPAP - BiPAP weaned off as above, will keep available if needed - NC for SPO2 > 90% -Tolerating room air at the moment. - Augmentin 875 mg Q12 - Albuterol nebs q2 prn and scheduled inhaler q6 hours- can return to PRN usage in morning if improved - Continue methylpred 40 q8- can adjust if needed - Nasal spray prn - Fluticasone 2 sprays each nostril BID for 1-2 days then return to 1 BID or 2 Qd If contiues to do well on 11/20, will discharge, (2) Moderate COPD (chronic obstructive pulmonary disease): As above- Chest Xray reviewed, no acute process emphysematous changes- - Albuterol as above - Patient was previously trialed on Spirva and ? reaction per PCP - Consider adding another muscarinic/LABA if desired - BG checks while on steroids (3) Asthma: As above (4) Mild cognitive impairment: No acute issues- cotninue to follow with PCP Admission and Anticipated Discharge Date Admission Date: November 18, 2020 Subjective 75 yo female reports feeling better. She feels close to baseline. Review of Systems Review of Systems: All systems reviewed & are unremarkable except as noted in HPI & below Physical Exam Physical Exam: General: awake, alert, no apparent distress Head: Normocephalic, atraumatic ENT: PERRLA, EOMI, no pharyngeal exudate, no significant pain on palpation of sinuses.. Neuro: AAO x 3, speech clear and appropriate, strength intact bilaterally 5/5, sensation intact and equal all extremities and dermatomes, no pronator drift Chest: equal rise and fall of the chest, no accessory muscle use, no heaves or thrills, Clear to auscultation, on room air, Cardiac: Regular rate and rhythm, telemetry reviewed, skin warm dry, cap refill <3 seconds, peripheral pules +2 no JVD, no murmur, no edema GI: NABS x 4 quadrants, soft, nontender to palpation, no rebound, guarding or tenderness : Spontaneously voiding, no pain, no CVA tenderness, Extremities: Normal inspection, no peripheral edema or erythema, calfs nontender to palpation Psych: Normal mood and affect Skin: no rash or erythema Results & Data Results & Data ([facility]) Vital Signs (Past 12 Hours) Vital Signs Temp Pulse Pulse Resp BP Pulse Ox 11/19/20 20:00 36.5 C 96 H 18 130/82 92 11/19/20 18:11 98 H 11/19/20 17:40 96 11/19/20 15:18 36.8 C 93 H 18 122/69 98 11/19/20 11:16 37 C 97 H 18 119/78 100 PG Care Time/CCT Total # of Minutes Spent Total Time Spent with Patient: Total time spent is greater than 50% in coordination of care (as documented) at patient's floor/unit and/or counseling patient: Coding Level of Care Code 48867 Subseq Hosp Care Lvl 3 Diagnoses Sinusitis, acute J01.00 Recurrence: not specified as recurrent Sinusitis location: maxillary Moderate COPD (chronic obstructive pulmonary disease) J44.9 Asthma J45.909 Asthma complication type: unspecified Asthma persistence: unspecified Asthma severity: moderate Mild cognitive impairment G31.84 Time Spent (min) 35 (1) Sinusitis, acute Recurrence: not specified as recurrent Sinusitis location: maxillary Qualified Code(s): J01.00 - Acute maxillary sinusitis, unspecified (2) Asthma Asthma complication type: unspecified Asthma persistence: unspecified Asthma severity: moderate Qualified Code(s): J45.909 - Unspecified asthma, uncomplicated
[2020-11-20 06:22] LABS: Eosinophils # (auto) 0.01 K/uL (0-0.5); Eosinophils % (auto) 0.1 %; Hematocrit (blood only) 40.7 % (37-47); Hemoglobin 12.9 g/dL (12.0-16.0); Immature Granulocytes # (auto) 0.01 K/uL (0.00-0.02); Immature Granulocytes % (auto) 0.1 %; Lymphocytes # (auto) 1.53 K/uL (1.2-3.4); Lymphocytes % (auto) 12.1 %; Mean Corpuscular Hemoglobin 29.2 pg (25-34); Mean Corpuscular Hgb Conc 31.7 g/dL (32-36); Mean Corpuscular Volume 92.1 fL (80-100); Mean Platelet Volume 8.8 fL (7.4-10.4); Monocytes # (auto) 1.26 K/uL (0.11-0.59); Neutrophils # (auto) 9.83 K/uL (1.4-6.5); Neutrophils % (auto) 77.7 %; Platelet Count 286 K/uL (130-400); RDW Coefficient of Variation 14.6 % (11.5-14.5); RDW Standard Deviation 49.7 fL (36.4-46.3); Red Blood Count 4.42 M/uL (4.2-5.4); White Blood Count 12.64 K/uL (4.8-10.8)
[2020-11-20 06:57] LABS: BUN Creatinine Ratio 33.2 (10-20); Calcium 8.8 mg/dl (8.5-10.1); Creatinine Clr Calc Pharmacy 60.8 ml/min; Est GFR (African American) 98.5; Magnesium 2.3 mg/dl (1.8-2.4); Potassium 4.4 mmol/L (3.5-5.1)
[2020-11-20] MEDS: ALBUTEROL 0.5% NEB SOLN 2.5 MG/0.5 ML VIAL NEB PRN (07:10)
[2020-11-20] MEDS: FLUTICASONE PROPIONATE NA SPR 16 GM BTL NAE SCH (08:13)
[2020-11-20] MEDS: AMOXICILLIN/CLAVULANATE 875 MG TAB PO SCH ×2 (08:14→17:14)
[2020-11-20] MEDS: INSULIN ASPART 100 UNITS/ML 3 ML PEN SC SCH ×3 (08:14→17:34)
[2020-11-20] MEDS ORDERED: predniSONE 20 MG TAB PO SCH (09:00)
[2020-11-20] MEDS ORDERED: FLUTICASONE PROPIONATE NA SPR 16 GM BTL NAE PRN (09:01)
[2020-11-20] MEDS ORDERED: FLUTICASONE/VILANTEROL 200/25MCG 14 PUFFS/INHALER INH SCH (10:00)
[2020-11-20] MEDS: ENOXAPARIN INJ 40 MG/0.4 ML SYR SQ SCH (17:34)
--- NOTE | 2020-11-25 11:40 | Discharge Summary ---
Date of Service November 20, 2020 Admission HPI Per Admitting Provider 75 YOF with past medical history of COPD, tubular adenoma of colon, asthma, normally on just albuterol at home, and fomer smoker. She has been having a 2-3 day history of sinus congestion with drainage to the back of her throat, with a bad taste to her mouth. She denies fevers or chills. She went to her PCP yesterday and was placed on fluticasone nasal spray, doxy and Bactrim. She has had one other episode of this within the last year and was managed with BiPAP, she has never been intubated. Had a similar symptoms in Aug to PCP without hypoxia. Normally a smell or irritant will set off her symptoms, and she can only recall doing out shopping last week where she had an irritating odor that she had to leave the store. She came to the [facility] and was hypoxic to 88 % and RR in the 30's, she was given methylpred 60, Nebulizers, and placed on BiPAP. CXR was done. On my evaluation she had a SPo2 of 100% RR 20's and tachycardic in the 110's. She was able to come off the BiPAP during examination without con versational dyspnea or accessory muscle use. Transitioned to 2.5L NC with SPO2 94%. Principal Diagnosis Acute sinusitis Discharge Exam General: awake, alert, no apparent distress Head: Normocephalic, atraumatic ENT: PERRLA, EOMI, no pharyngeal exudate, no significant pain on palpation of sinuses.. Neuro: AAO x 3, speech clear and appropriate, strength intact bilaterally 5/5, sensation intact and equal all extremities and dermatomes, no pronator drift Chest: equal rise and fall of the chest, no accessory muscle use, no heaves or thrills, Clear to auscultation, on room air, Cardiac: Regular rate and rhythm, telemetry reviewed, skin warm dry, cap refill <3 seconds, peripheral pules +2 no JVD, no murmur, no edema GI: NABS x 4 quadrants, soft, nontender to palpation, no rebound, guarding or tenderness : Spontaneously voiding, no pain, no CVA tenderness, Extremities: Normal inspection, no peripheral edema or erythema, calfs nontender to palpation Psych: Normal mood and affect Skin: no rash or erythema Discharge Data Allergies Allergy/AdvReac Type Severity Reaction Status Date / Time povidone-iodine Allergy Intermediate ITCHING Verified 11/18/20 11:31 [From Betadine] soap [From Betadine] Allergy Intermediate ITCHING Verified 11/18/20 11:31 nickel AdvReac Intermediate IRRITATED Verified 11/18/20 11:31 AND ITCHY Consultations 11/18/20 11:50 ED Decision to Admit Stat Hospital Course (1) Sinusitis, acute: Acute sinusitis with postnasal drainage, increasing in breathlessness leading to increased minute ventilation and hypoxia - Patient improved with nebulizers, steroids, and BiPAP - BiPAP weaned off as above, will keep available if needed - NC for SPO2 > 90% -Tolerating room air at the moment. - Augmentin 875 mg Q12 - Albuterol nebs q2 prn and scheduled inhaler q6 hours- can return to PRN usage in morning if improved - Continue methylpred 40 q8- can adjust if needed - Nasal spray prn - Fluticasone 2 sprays each nostril BID for 1-2 days then return to 1 BID or 2 Qd Patient is doing well on 11/20 Will discharge on Breo. Concern over cost of inhalers. Will give inhaler she was using from hospital. Patient may qualify for medical assistance to help offset cost of inhalers which can be quite expensive; will defer to PCP. She will need to be on daily inhalers. will continue on 7.more days of antibiotics (2) Moderate COPD (chronic obstructive pulmonary disease): As above- Chest Xray reviewed, no acute process emphysematous changes- - Albuterol as above - Patient was previously trialed on Spirva and ? reaction per PCP - Consider adding another muscarinic/LABA if desired - BG checks while on steroids (3) Asthma: As above (4) Mild cognitive impairment: No acute issues- cotninue to follow with PCP Total Time Total Time Spent Total Time Spent (In Minutes): 32 Discharge Plan Discharge Items Patient Disposition: Home - Self-Care Reason For Visit: DYSPNEA WITH HYPOXIA Discharge Diagnosis: dyspnea with hypoxia Condition on Discharge: Good Activity: Resume your previous activity Non-emergency contact: Primary Care Provider Call non-emergency contact if: you have any medication questions Follow-up/Referrals: Demetrice Kelly DO [Primary Care Provider] - Radha Wilson MD [Physician] - Diet: Regular and Carb Count or DM1 Addtl Attending Provider Instructions: You have been hospitalized for an acute medical problem. During your stay at [facility], we have made an effort to correct the problem that brought you to the hospital while keeping you as comfortable as possible. Medications were used to bring your condition under control and your discharge instructions will include directions for any medications you should take after leaving the hospital. Please make sure you see your Primary Care Provider as part of your follow up plan. You will be discharged on 2 liters of oxygen nasal cannula. You will be placed on antibiotics for your sinusitis for an additional 7 days. we recommend you use your Breo inhaler. Pending Studies at Discharge: No Stand-Alone Forms: My [facility], Smoking Cessation Medications and DC Order Prescriptions: New amoxicillin-pot clavulanate [Augmentin] 875-125 mg Tablet 1 tab PO BIDM Qty: 14 RF: 0 albuterol sulfate 2.5 mg /3 mL (0.083 %) solution for nebulization 1.25 mg inhalation Q8H PRN (Reason: bronchospasm) Qty: 42 RF: 3 Continued fluticasone propionate [Flonase Allergy Relief] 50 mcg/actuation spray,suspension 1 spray intranasal BID PRN (Reason: nasal congestion) Qty: 15.8 RF: 0 docusate sodium [Stool Softener] 100 mg Capsule 100 mg PO HS RF: 0 acetaminophen [Tylenol Extra Strength] 500 mg Tablet 1,000 mg PO Q6H PRN (Reason: Pain) RF: 0 No Action Breo Ellipta 200-25 mcg/dose blister with device 1 ea inhalation DAILY Qty: 1 RF: 0 prednisone 10 mg tablet 10 mg PO DAILY Qty: 10 RF: 0 (DME) nebulizer accessories Kit See Rx Instructions .ROUTE .MEDSUPPLY Qty: 1 RF: 0 (DME) nebulizer and compressor Device See Rx Instructions .ROUTE .MEDSUPPLY Qty: 1 RF: 0 albuterol sulfate [Ventolin HFA] 90 mcg/actuation HFA aerosol inhaler 2 inh inhalation Q6H PRN (Reason: SOB/WHEEZING) Qty: 18 RF: 3 Discharge Orders: Discharge Order (Routine); Ordered 11/20/20 Ordered By: Kenny Jimenez/Other Patient Handouts: Asthma and COPD, COPD Using Inhalers Admission Data Admit Date/Time: 11/18/20 13:40 Attending Provider: Kenny Lozano Admit Provider: Bernardo Workman Primary Care Provider: Demetrice Kelly Other Providers: Bernardo Workman Other Interventions: Discharge Summary Assessment (RN) Last Done: 11/20/20 16:36 Coding Level of Care Code D/C Day Management >30 mins Diagnoses Sinusitis, acute J01.00 Sinusitis location: maxillary Recurrence: not specified as recurrent Moderate COPD (chronic obstructive pulmonary disease) J44.9 Asthma J45.909 Asthma severity: moderate Asthma persistence: unspecified Asthma complication type: unspecified Mild cognitive impairment G31.84
--- NOTE | 2020-11-29 13:45 | Coding Query ---
To promote full compliance with coding requirements relating to patient care, provider participation is requested in all cases of countersinker balance screw hole uncertainty. Please assist us with the question(s) below: Coding Question(s): The diagnosis(es) below was documented in the H&P, then subsequently fell off all further documentation. Please indicate if it is still a possible diagnosis or ruled out. Physician's Response(s): ACUTE HYPOXIC RESPIRATORY FAILURE ( x ) Diagnosed and POA ( ) Diagnosed and not POA ( ) Ruled out ( ) Other (please specify) COPD EXACERBATION ( x ) Diagnosed and POA ( ) Diagnosed and not POA ( ) Ruled out ( ) Other (please specify) MTDD
== END 2020-11-20 19:10 | disposition home or self-care (01) | DRG 152 ==
LOC: ED 10:06 → 2N 13:40 → SUATTDRO 13:40 → 2N 14:33

== ENCOUNTER 2022-04-05 15:45 | Observation (INO) ==
--- NOTE | 2022-04-05 15:54 | Emergency Department Note ---
Impression & Plan Concussion, Closed fracture of tibial plateau, Fracture, humerus closed, CHI (closed head injury) ED Provider Note NurseNAME: CHEY FORRESTER AGE: 76 SEX: F : 1945 ARRIVES VIA: Ambulance INFORMANT: Patient, ED PROVIDER(S): Sorin Adkins MD Chief Complaint: Fall, syncope, head trauma, leg and arm pain HPI: Patient presents due to concern for the above. The patient unfortunately just learned that her had and was riding along in the ambulance. When she tried to get out she slightly stumbled striking the left side of her head against the ambulance door and fell to the ground striking both her left shoulder and her left knee which she thinks that she twisted. EMS reported that the patient may have been out for approximately 30 seconds. The patient does not take any blood thinning medications denies any fevers chills chest pains or shortness of breath. Patient denies any nausea vomiting right upper extremity head neck face or abdominal pain. The patient denies any right lower extremity pain. The patient states that the pain is worse with palpation or attempting to move the extremities and she has limited range of motion of moving the left arm and the left leg. ROS: See HPI for pertinent positives and negatives. A total of 10 systems were reviewed and otherwise negative. Past medical history: See below Surgical history: See below Social history: See below Physical Exam: GENERAL: NAD, wearing a mask, non-toxic. Wearing glasses, c-collar in place. EYE EXAM: Normal conjunctiva. PERRL, no anisocoria and EOM's grossly intact w/o pain. Head: Abrasion to the left head without gaping laceration. Hemostatic. NECK: Supple, no nuchal rigidity, no adenopathy, non-tender. No signs of meningismus. FROM of the neck with good chin to chest and neck extension. No s tridor. LUNGS: Clear to auscultation. Normal chest wall mechanics. HEART: NSR, no MRG. ABDOMEN: Abdomen soft, non-tender, normo-active bowel sounds, no masses, no rebound or guarding. BACK: No CVA TTP. SKIN: No rashes and no bruising. UPPER EXTREMITIES: Mild pain with limited range of motion of the left upper extremity at the shoulder and proximal humerus, neurovascular intact distally but with decreased range of motion secondary to pain. Good radial pulse. LOWER EXTREMITIES: Pain with associated hematoma to the left proximal patel, compartments are soft distally neurovascular intact to tibialis, DP and SP nerves. Good DP pulse. NEURO EXAM: A&O x3, cranial nerves II-XII grossly intact, normal speech, moves all 4 extremities. Differential diagnoses: Fracture, dislocation, contusion, intra-abdominal, pneumothorax, intrathoracic, intracranial, neurologic, compartment syndrome, rhabdomyolysis, as well as other pathologies. Course: Patient was seen and evaluated the bedside. Full history physical exam was performed. EKG interpreted by me Sinus rhythm, rate of 94, normal intervals, normal axis, PVC noted. No obvious ST elevations, T wave version in lead III. Imaging Studies: See Below Cardiac monitoring: An order was placed for continuous cardiac monitoring. The monitor shows a rate of 92 with sinus rhythm. MDM: Patient presented due to concern for fall with associated head trauma syncope with left shoulder and left leg pain. Blood work was obtained. Patient was given IV fluids and pain medication. CT head and cervical spine was obtained. Patient CT head and cervical spine are negative. 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 The patient was advised that she will need a follow-up CT in 6 months time. Cervical spine was cleared. C-collar removed. The patient's plain films did not show concern for a tibial fracture as well as a proximal humerus fracture. Patient also does have an acute comminuted mildly displaced fracture of the left fibular head neck. I did convey this to the patient the patient's family member. I did speak with Dr. Cyr with orthopedic surgery who is agreeable to left upper extremity sling and a knee immobilizer for the left lower extremity at this time. Agree potentially tomorrow. I did speak the on-call hospitalist Dr. Bergman and the patient was admitted to the medicine service. Do believe the syncope was likely secondary to the fall. The patient may have suffered a concussion. The patient has a normal white count H&H and platelet count with normal kidney function. BSG 125. The patient is COVID- negative. Past Med/Surg History Medical History Allergic rhinitis Arthritis Asthma allergy induced Constipation Hypoxia Mild cognitive impairment Moderate COPD (chronic obstructive pulmonary disease) Positive Lyme disease serology Tubular adenoma of colon Surgical History H/O colonoscopy (~09/2018) H/O inguinal hernia repair (12/31/16) Right groin exploration with reduction of incarceratedsmall bowel and repair of femoral hernia with a plug of mesh 12/31/16 Dr. Marte History of open reduction and internal fixation (ORIF) procedure RIGHT ELBOW History of tonsillectomy S/P laparoscopic cholecystectomy (04/05/20) Laparoscopic cholecystectomy 04/05/20 Dr. Naylor Family History Mother Lung cancer Cancer Father Renal cancer Cancer Sister Renal cancer Denies family history of Ovarian cancer Prostate cancer No family history of adverse response to anesthesia Myocardial infarction Breast cancer Colorectal cancer Social History Smoking Status: Never smoker Tobacco Type: Cigarettes Age Started Using Tobacco: 14; Age Quit Using Tobacco: 71; Second Hand Exposure: Yes (SPOUSE USED TO SMOKE- AND OCC NOW); Hx Alcohol Use: No Hx Substance Use: No Preferred Language: Macanese Communication Ability: Effective Visual Impairment: Limited Hearing Ability: Normal Furniture Servicer Required: No Beliefs That Will Affect Care: None marital status: Current Living Situation: Spouse Current Living Situation Comment: home with current occupational status: retired How many Children do You have: 2 Feels Safe at Home: Yes Childhood Exposure to Second-Hand Smoke: No caffeine: Yes (coffee) during the past year weight has: remained stable Dental Care, Regularly: No Physical Activity Frequency: Daily Seatbelt Use: always Sunscreen Use: No Assistive Devices: Oxygen - Continuous Allergies Allergies Allergy/AdvReac Type Severity Reaction Status Date / Time povidone-iodine Allergy Intermediate ITCHING Verified 04/05/22 16:41 [From Betadine] soap [From Betadine] Allergy Intermediate ITCHING Verified 04/05/22 16:41 nickel AdvReac Intermediate IRRITATED Verified 04/05/22 16:41 AND ITCHY Home Meds Home Medications Medication Instructions Recorded Confirmed docusate sodium 100 mg capsule 100 mg PO HS 09/17/18 04/05/22 (Stool Softener) acetaminophen 500 mg tablet 1,000 mg PO Q6H PRN Pain 11/18/20 04/05/22 (Tylenol Extra Strength) Previous Rx's Medication Instructions Recorded nebulizer accessories #1 ea 11/22/20 nebulizer and compressor #1 ea 11/22/20 albuterol sulfate 2.5 mg/3 mL 2.5 mg (3 mL) inhalation Q8H PRN 01/17/21 (0.083 %) solution for nebulization bronchospasm 90 days #180 mL fluticasone furoate 200 1 ea inhalation DAILY 90 days #90 02/09/22 mcg-vilanterol 25 mcg/dose ea inhalation powder (Breo Ellipta) Ventolin HFA 90 mcg/actuation 2 inh inhalation Q6H PRN 02/17/22 aerosol inhaler (albuterol sulfate) SOB/WHEEZING 90 days #54 grams Results & Data (ED) Vital Signs Vital Signs - 24 hr 04/05/22 16:00 Temperature 37.1 C Temperature Source Oral Pulse Rate 92 H Pulse Rhythm Regular Pulse Strength Normal Respiratory Rate 20 Respiratory Effort / Characteristics Non-Labored Spontaneous Respiratory Depth Normal Respiratory Pattern Regular Blood Pressure 134/81 Blood Pressure Mean 98 Blood Pressure Position Sitting Pulse Oximetry 91 Oxygen Delivery Method Room Air Sepsis Recent Fever Within 48 Hours No Sepsis New/Unexplained Change in Mental Status No Sepsis Action Taken by Nursing No Action Required Home Medications Current Medication List: was personally reviewed by me Laboratory Data Attestation: I reviewed the patient's lab results. Result diagrams: 04/05/22 15:20 04/05/22 15:20 Lab Results 04/05/22 04/05/22 04/05/22 Range/Units 15:20 15:20 19:20 WBC 7.04 (4.8-10.8) K/ul RBC 4.61 (3.93-5.22) M/uL Hgb 13.3 (12.0-16.0) g/dl Hct 40.9 (34.1-44.9) % MCV 88.7 (80.0-100.0) fL MCH 28.9 (25.0-34.0) pg MCHC 32.5 (32.0-36.0) g/dL RDW Std Deviation 44.3 (36.4-46.3) fL RDW Coeff of Solo 13.7 (11.5-14.5) % Plt Count 282 (130-400) K/uL MPV 9.4 (9.4-12.3) fL Immature Gran % (Auto) 0.3 % Neut % (Auto) 52.9 % Lymph % (Auto) 37.8 % [place] % (Auto) 7.7 % Eos % (Auto) 0.9 % Baso % (Auto) 0.4 % Neut # (Auto) 3.73 (1.4-6.5) K/uL Lymph # (Auto) 2.66 (1.2-3.4) K/uL [place] # (Auto) 0.54 (0.24-0.82) K/uL Eos # (Auto) 0.06 (0-0.50) K/uL Baso # (Auto) 0.03 (0-0.2) K/uL Immature Gran # (Auto) 0.02 (0.00-0.02) K/uL Sodium 139 (136-145) mmol/L Potassium 4.0 (3.5-5.1) mmol/L Chloride 105 (98-107) mmol/L Carbon Dioxide 23 (21-32) mmol/L Anion Gap 11 (3-11) BUN 11 (6-23) mg/dl Creatinine 0.79 (0.6-1.2) mg/dl Est Cr Clr Drug Dosing 48.6 ml/min Est GFR ( Amer) 83.7 ml/min Est GFR (Non-Af Amer) 72.2 ml/min BUN/Creatinine Ratio 13.9 (10-20) Glucose 125 H (70-99(Fasting)) mg/dl Calcium 9.5 (8.5-10.1) mg/dl Total Bilirubin 0.6 (0.2-1.0) mg/dl AST 18 (13-39) U/L ALT 10 (7-52) U/L Alkaline Phosphatase 47 (34-104) U/L Total Protein 6.9 (6.0-8.3) gm/dl Albumin 4.1 (3.4-5.0) gm/dl Globulin 2.8 (2.5-4.0) gm/dl Albumin/Globulin Ratio 1.5 (0.9-2) SARS-CoV-2, RNA, NAAT NEGATIVE (NEGATIVE) Administered Medications Discontinued Medications Sodium Chloride (Nss) 500 mls @ 999 mls/hr IV .Q31M DERRELL Stop: 08/24/22 16:45 Last Infusion: 04/05/22 17:12 Dose: 0 mls/hr Documented By: Admin: 04/05/22 16:18 Dose: 999 mls/hr Documented By: MASTER Morphine Sulfate (Morphine Sulfate 4 Mg/Ml 1 Ml Carp\Vial) 4 mg IV NOW STA Stop: 04/05/22 16:06 Last Admin: 04/05/22 16:18 Dose: 4 mg Documented By: MASTER Morphine Sulfate (Morphine Sulfate 4 Mg/Ml 1 Ml Carp\Vial) 4 mg IV NOW STA Stop: 04/05/22 18:39 Last Admin: 04/05/22 18:45 Dose: 4 mg Documented By: MASTER Imaging Data Radiologist's Impression: Cervical Spine CT 04/05/22 16:[address] DOSE: HISTORY: Fall. Trauma TECHNIQUE: Multiaxial CT images of the cervical spine were performed and reformatted in the sagittal and coronal plane without the use of contrast. A dose lowering technique was utilized adhering to the principles of ALARA. COMPARISON: None. FINDINGS: No fractures. No subluxation. Prevertebral soft tissues and the C1-C2 interval are intact. No pneumothorax. Multinodular thyroid gland with the largest on the left measuring 2.5 cm. Emphysema. There is normal compression deformity at T4 which is partially visualized. Moderate degenerative disc disease within the lower cervical spine. IMPRESSION: No fractures within the cervical spine. ACT 112: Negative or not required by law. Electronically signed by: Allen Nicholson M.D. 04/05/2022 5:[address] 04/05/22 16:[address] DOSE: 993.57 mGy.cm HISTORY: Fall. Trauma TECHNIQUE: Multiaxial CT images of the head were performed without the use of intravenous contrast. Automated exposure control was utilized for this study. A dose lowering technique was utilized adhering to the principles of ALARA. Comparison: None. Findings: Mild mucosal thickening within the ethmoid air cells. The mastoid air cells are clear. The calvarium and skull base are intact. There is no hematoma, midline shift, acute infarct. White matter hypodensity is nonspecific but suggestive of microvascular ischemic change. The ventricles and sulci demonstrate mild age-related involutional changes. There is a 1.4 cm slightly hyperdense and partially calcified nodule abutting the right lateral ventricle. No surrounding vasogenic edema. Impression: 1. No acute intracranial abnormality. 2. A 1.4 cm partially calcified nodule adjacent to the right lateral ventricle. 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 Follow-up head CT in 6 months can be performed to ensure stability. ACT 112: Negative or not required by law. Electronically signed by: Allen Nicholson M.D. 04/05/2022 5:05 PM Knee X-Ray 04/05/22 16:06 XR knee LT 1 or 2V routine CLINICAL HISTORY: pain to patel, twisted knee COMPARISON: None FINDINGS: Left knee joint effusion with lipohemarthrosis is noted. Left knee and lower leg soft tissue swelling is present. There is an acute comminuted di splaced fracture of the left fibular head and neck. In addition, there is an acute oblique mildly displaced fracture which extends from the lateral tibial plateau to the proximal diaphysis of the left tibia at the junction of the proximal and middle thirds. Displaced transverse component extends through the metaphysis of the left tibia. Fracture may also extend to the medial tibial plateau. Lateral tibial plateau is depressed, suboptimally assessed by radiography IMPRESSION: 1. Acute comminuted displaced left tibial fracture which extends from the lateral tibial plateau to the proximal diaphysis with depression of the lateral tibial plateau, suboptimally assessed by radiography. 2. Comminuted displaced fracture of the left fibular head and neck. 3. Associated left knee joint effusion with lipohemarthrosis. ACT 112: Negative or not required by law. Electronically signed by: Dylan Mireles M.D. 04/05/2022 5:16 PM Tibia/Fibula X-Ray 04/05/22 16:06 XR tibia fibula LT 2V CLINICAL HISTORY: ecchymosis/hematoma COMPARISON: None FINDINGS: Left knee and lower leg soft tissue swelling is present. Note is made of an acute comminuted mildly displaced fracture of the left fibular head and neck. There is also a left fibular fracture which extends from the lateral tibial plateau through the proximal diaphysis of the left tibia. Transverse component extends through the metaphysis. Lateral tibial plateau is depressed, suboptimally assessed by radiography. No distal left tibial or fibular fracture is present. Talar dome is intact. IMPRESSION: 1. Acute comminuted displaced oblique left tibial fracture which extends from the tibial plateau through the proximal diaphysis, as described above. Lateral tibial plateau depressed, suboptimally assessed by radiography. 2. Acute comminuted mildly displaced fracture of the left fibular head and neck. 3. No distal left tibial or fibular fracture. ACT 112: Negative or not required by law. Electronically signed by: Dylan Mireles M.D. 04/05/2022 5:51 PM Humerus X-Ray 04/05/22 16:07 XR humerus LT 2V CLINICAL HISTORY: pain s/p fall COMPARISON: None FINDINGS: Note is made of an acute comminuted displaced left humeral head and neck fracture. Distal component is displaced approximately 1.9 cm anteriorly. Fracture extends through the greater tuberosity. Alignment of the left glenohumeral joint is anatomic. No distal left humeral fracture is identified. Alignment of the left elbow appears anatomic. IMPRESSION: Acute comminuted displaced left humeral head and neck fracture. ACT 112: Negative or not required by law. Electronically signed by: Dylan Mireles M.D. 04/05/2022 5:53 PM Shoulder X-Ray 04/05/22 16:07 XR shoulder LT min 2V routine CLINICAL HISTORY: fall, shoulder/arm pain COMPARISON: None FINDINGS: Note is made of an acute comminuted displaced fracture of the left humeral head and neck. Distal component is displaced approximately 1.9 cm anteriorly. Fracture extends through the greater tuberosity. Alignment of the left acromioclavicular and glenohumeral joints is anatomic. Moderate osteoarthritis of the left acromioclavicular joint is noted. IMPRESSION: Moderately displaced comminuted left humeral neck and head fracture, as described above. ACT 112: Negative or not required by law. Electronically signed by: Dylan Mireles M.D. 04/05/2022 5:[address] 04/05/22 18:[address] DOSE: 240.55 mGy.cm HISTORY: Left knee fracture. Left knee pain. Eval for articular depression TECHNIQUE: Multiaxial CT images of the left knee were performed and reformatted in the sagittal and coronal plane without the use of contrast. A dose lowering technique was utilized adhering to the principles of ALARA. COMPARISON: Left knee radiograph 04/05/2022. FINDINGS: No fractures identified within the distal femur or patella. No dislocation. There is a lateral tibial plateau fracture which extends to the articular surface and lateral tibial spine. This demonstrates mild depression posteriorly of up to 3 mm. There is also mild posterior displacement of the fracture of approximately 4 mm. The posterior fracture extends to the posterior aspect of the medial tibia and may extend to the medial articular surface. The fracture extends to the proximal shaft of the tibia which also demonstrates up to 9 mm of posterior displacement. Comminuted and impacted fracture at the fibu lar head/neck with mild posterior displacement. Subcutaneous hemorrhage within the anterolateral lower leg. Moderate lipohemarthrosis. IMPRESSION: 1. Proximal left tibial and fibular fractures as described above. 3. Moderate lipohemarthrosis. 4. Subcutaneous hemorrhage within the anterolateral lower leg. ACT 112: Negative or not required by law. Electronically signed by: Allen Nicholson M.D. 04/05/2022 6:[address] 04/05/22 18:[address] DOSE: 269.43 mGy.cm HISTORY: Left shoulder pain. Fall. Eval for communition of fracture TECHNIQUE: Multiaxial CT images of the left shoulder were performed and reformatted in the sagittal and coronal plane without the use of contrast. A dose lowering technique was utilized adhering to the principles of ALARA. COMPARISON: Left shoulder 04/05/2022. FINDINGS: There is again noted a comminuted and displaced fracture of the left humeral neck which extends to the greater tuberosity of the humeral head. The greater tuberosity fracture demonstrates up to 1.6 cm of posterior displacement is slightly comminuted. The humeral neck fracture also demonstrates 1 cm posterior displacement and impaction. The scapula and clavicle appear intact. No dislocation of the humeral head. Soft tissue swelling and a lipohemarthrosis within the glenohumeral joint. Emphysema noted within the left lung. IMPRESSION: Comminuted and displaced fractures within the left humeral neck/head as described above. No dislocation. ACT 112: Negative or not required by law. Electronically signed by: Allen Nicholson M.D. 04/05/2022 6:38 PM Discharge Plan Visit Data Chief Complaint: Fall Stated Complaint: hit head ED Provider: Sorin Adkins Discharge Problem: Concussion, Closed fracture of tibial plateau, Fracture, humerus closed, CHI (closed head injury) Patient Disposition: Admitted As Inpatient Forms Stand Alone Forms: [facility] Prescriptions Prescriptions: No Action (DME) nebulizer accessories Kit See Rx Instructions .ROUTE .MEDSUPPLY Qty: 1 0RF Rx Instructions: As directed (DME) nebulizer and compressor Device See Rx Instructions .ROUTE .MEDSUPPLY Qty: 1 0RF Rx Instructions: As directed albuterol sulfate 2.5 mg /3 mL (0.083 %) solution for nebulization 2.5 mg inhalation Q8H PRN (Reason: bronchospasm) 90 Days Qty: 180 3RF Rx Instructions: J44.9 , J45.909 Breo Ellipta 200-25 mcg/dose blister with device 1 ea inhalation DAILY 90 Days Qty: 90 1RF albuterol sulfate [Ventolin HFA] 90 mcg/actuation HFA aerosol inhaler 2 inh inhalation Q6H PRN (Reason: SOB/WHEEZING) 90 Days Qty: 54 1RF Rx Instructions: Please dispense 3 inhalers docusate sodium [Stool Softener] 100 mg Capsule 100 mg PO HS acetaminophen [Tylenol Extra Strength] 500 mg Tablet 1,000 mg PO Q6H PRN (Reason: Pain) Referrals Referrals: Demetrice Kelly DO [Primary Care Provider] -
[2022-04-05] MEDS ORDERED: MoRPHine SULFATE 4 MG/ML 1 ML CARP\\VIAL IV STA ×2 (16:05→18:38)
[2022-04-05] MEDS ORDERED: SODIUM CHLORIDE 0.9% 500 ML IV SCH (16:15)
[2022-04-05 16:29] LABS: Basophils # (auto) 0.03 K/uL (0-0.2); Basophils % (auto) 0.4 %; Eosinophils # (auto) 0.06 K/uL (0-0.50); Eosinophils % (auto) 0.9 %; Hematocrit (blood only) 40.9 % (34.1-44.9); Hemoglobin 13.3 g/dl (12.0-16.0); Immature Granulocytes # (auto) 0.02 K/uL (0.00-0.02); Immature Granulocytes % (auto) 0.3 %; Lymphocytes # (auto) 2.66 K/uL (1.2-3.4); Lymphocytes % (auto) 37.8 %; Mean Corpuscular Hemoglobin 28.9 pg (25.0-34.0); Mean Corpuscular Hgb Conc 32.5 g/dL (32.0-36.0); Mean Corpuscular Volume 88.7 fL (80.0-100.0); Mean Platelet Volume 9.4 fL (9.4-12.3); Monocytes # (auto) 0.54 K/uL (0.24-0.82); Monocytes % (auto) 7.7 %; Neutrophils # (auto) 3.73 K/uL (1.4-6.5); Neutrophils % (auto) 52.9 %; Platelet Count 282 K/uL (130-400); RDW Coefficient of Variation 13.7 % (11.5-14.5); RDW Standard Deviation 44.3 fL (36.4-46.3); Red Blood Count 4.61 M/uL (3.93-5.22); White Blood Count 7.04 K/ul (4.8-10.8)
[2022-04-05 16:49] LABS: Albumin Globulin Ratio 1.5 (0.9-2); Albumin Level 4.1 gm/dl (3.4-5.0); BUN Creatinine Ratio 13.9 (10-20); Bilirubin,Total 0.6 mg/dl (0.2-1.0); Calcium 9.5 mg/dl (8.5-10.1); Creatinine Clr Calc Pharmacy 48.6 ml/min; Est GFR (African American) 83.7 ml/min; Est GFR (Non-African American) 72.2 ml/min; Globulin 2.8 gm/dl (2.5-4.0); Total Protein 6.9 gm/dl (6.0-8.3)
--- NOTE | 2022-04-05 17:07 | CT Scan Report ---
HEAD CT NONCONTRAST CT DOSE: 993.57 mGy.cm HISTORY: Fall. Trauma TECHNIQUE: Multiaxial CT images of the head were performed without the use of intravenous contrast. A utomated exposure control was utilized for this study. A dose lowering technique was utilized adheri ng to the principles of ALARA. Comparison: None. Findings: Mild mucosal thickening within the ethmoid air cells. The mastoid air cells are clear. The calvarium and skull base are intact. There is no hematoma, midline shift, acute infarct. White matter hypodensity is nonspecific but suggestive of microvascular ischemic change. The ventricles and sulci demonstrate mild age-related involutional changes. There is a 1.4 cm slightly hyperdense and partial ly calcified nodule abutting the right lateral ventricle. No surrounding vasogenic edema. Impression: 1. No acute intracranial abnormality. 2. A 1.4 cm partially calcified nodule adjacent to the right lateral ventricle. 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 Follow-up head CT in 6 months can be performed to ensure stability. ACT 112: Negative or not required by law. Electronically signed by: Allen Nicholson M.D. 04/05/2022 5:05 PM
--- NOTE | 2022-04-05 17:12 | CT Scan Report ---
CERVICAL SPINE CT CT DOSE: HISTORY: Fall. Trauma TECHNIQUE: Multiaxial CT images of the cervical spine were performed and reformatted in the sagittal and coronal plane without the use of contrast. A dose lowering technique was utilized adhering to th e principles of ALARA. COMPARISON: None. FINDINGS: No fractures. No subluxation. Prevertebral soft tissues and the C1-C2 interval are intact. No pneumothorax. Multinodular thyroid gland with the largest on the left measuring 2.5 cm. Emphysema. There is normal compression deformity at T4 which is partially visualized. Moderate degenerative dis c disease within the lower cervical spine. IMPRESSION: No fractures within the cervical spine. ACT 112: Negative or not required by law. Electronically signed by: Allen Nicholson M.D. 04/05/2022 5:10 PM
--- NOTE | 2022-04-05 17:19 | XRay Report ---
XR shoulder LT min 2V routine CLINICAL HISTORY: fall, shoulder/arm pain COMPARISON: None FINDINGS: Note is made of an acute comminuted displaced fracture of the left humeral head and neck. Distal component is displaced approximately 1.9 cm anteriorly. Fracture extends through the greater t uberosity. Alignment of the left acromioclavicular and glenohumeral joints is anatomic. Moderate oste oarthritis of the left acromioclavicular joint is noted. IMPRESSION: Moderately displaced comminuted left humeral neck and head fracture, as described above. ACT 112: Negative or not required by law. Electronically signed by: Dylan Mireles M.D. 04/05/2022 5:18 PM
--- NOTE | 2022-04-05 17:19 | XRay Report ---
XR knee LT 1 or 2V routine CLINICAL HISTORY: pain to patel, twisted knee COMPARISON: None FINDINGS: Left knee joint effusion with lipohemarthrosis is noted. Left knee and lower leg soft tiss ue swelling is present. There is an acute comminuted displaced fracture of the left fibular head and neck. In addition, there is an acute oblique mildly displaced fracture which extends from the lateral tibial plateau to the proximal diaphysis of the left tibia at the junction of the proximal and middl e thirds. Displaced transverse component extends through the metaphysis of the left tibia. Fracture m ay also extend to the medial tibial plateau. Lateral tibial plateau is depressed, suboptimally assess ed by radiography IMPRESSION: 1. Acute comminuted displaced left tibial fracture which extends from the lateral tibial plateau to t he proximal diaphysis with depression of the lateral tibial plateau, suboptimally assessed by radiogr aphy. 2. Comminuted displaced fracture of the left fibular head and neck. 3. Associated left knee joint effusion with lipohemarthrosis. ACT 112: Negative or not required by law. Electronically signed by: Dylan Mireles M.D. 04/05/2022 5:16 PM
--- NOTE | 2022-04-05 17:53 | XRay Report ---
XR tibia fibula LT 2V CLINICAL HISTORY: ecchymosis/hematoma COMPARISON: None FINDINGS: Left knee and lower leg soft tissue swelling is present. Note is made of an acute comminut ed mildly displaced fracture of the left fibular head and neck. There is also a left fibular fractur e which extends from the lateral tibial plateau through the proximal diaphysis of the left tibia. Tra nsverse component extends through the metaphysis. Lateral tibial plateau is depressed, suboptimally a ssessed by radiography. No distal left tibial or fibular fracture is present. Talar dome is intact. IMPRESSION: 1. Acute comminuted displaced oblique left tibial fracture which extends from the tibial plateau thro ugh the proximal diaphysis, as described above. Lateral tibial plateau depressed, suboptimally assess ed by radiography. 2. Acute comminuted mildly displaced fracture of the left fibular head and neck. 3. No distal left tibial or fibular fracture. ACT 112: Negative or not required by law. Electronically signed by: Dylan Mireles M.D. 04/05/2022 5:51 PM
--- NOTE | 2022-04-05 17:54 | XRay Report ---
XR humerus LT 2V CLINICAL HISTORY: pain s/p fall COMPARISON: None FINDINGS: Note is made of an acute comminuted displaced left humeral head and neck fracture. Distal component is displaced approximately 1.9 cm anteriorly. Fracture extends through the greater tuberosi ty. Alignment of the left glenohumeral joint is anatomic. No distal left humeral fracture is identifi ed. Alignment of the left elbow appears anatomic. IMPRESSION: Acute comminuted displaced left humeral head and neck fracture. ACT 112: Negative or not required by law. Electronically signed by: Dylan Mireles M.D. 04/05/2022 5:53 PM
--- NOTE | 2022-04-05 18:25 | History & Physical Report ---
Date of Service April 05, 2022 Assessment & Plan (1) Fall: Plan: -Admit to med surge -Patient suffered a mechanical fall trying to get out of the ambulance as her was in cardiac arrest -Head CT negative for acute trauma -Trauma workup revealed fractures to the left humerus, left tibia, and left fibula -Ortho consulted and will follow -Pain control with scheduled tylenol q8h, 2mg IV morphine for mild pain, and 4mg IV morphine for severe pain -Hold chemical DVT PPX for now until ortho confirms if they will be taking her to the OR -Keep NPO except meds for now -AM CBC and BMP (2) Left humeral fracture: Plan: -See fall (3) Left tibial fracture: Plan: -See fall (4) Left fibular fracture: Plan: -see fall (5) Moderate COPD (chronic obstructive pulmonary disease): Plan: -VICE PRESIDENT OF RECRUITING breo-ellipta -VICE PRESIDENT OF RECRUITING prn albuterol -Incentive spirometry (6) Asthma: Plan: -See COPD Plan The patient was discussed with Dr. Bergman at the time of admission History of Present Illness Chief Complaint: Fall Primary Care Provider: Demetrice Kelly DO Ning is a 76 year old female with a PMH significant for moderate COPD, a sthma, allergic rhinitis, mild cognitive impairment, allergic rhinitis, and previously lyme positive who presented to the [facility] on 04/05 for fall. Per chart review, the patient initially was riding in an ambulance with her who had gone into cardiac arrest. When she was attempting to get out of the ambulance she fell. In the ED the patient was noted to be afebrile, hemodynamically stable, and stable on RA. Trauma scans revealed Moderately displaced comminuted left humeral neck and head fracture, Acute comminuted displaced oblique left tibial fracture which extends from the tibial plateau through the proximal diaphysis, and Acute comminuted mildly displaced fracture of the left fibular head and neck. At the time of the exam the patient was resting comfortably in bed in no acute distress. She states that she slipped when she was trying to get out of the ambulance when it arrived. She states that she was very shocked and distracted because she was just told in the ambulance that her 's heart had stopped. She denies lightheadedness, dizziness, headache, chest pain, SOB, and heart palpitations prior to her fall. She remembers landing on her knees, her left lower leg turning the wrong way, and hitting the left side of her head. She states that she does not think that she lost consciousness but EMS told her she did for about 30 seconds or so. She states that her pain in well-controlled at the current time. She is curious if she will need any surgery, I explained to her that orthopedics will make that determination. She confirmed that she is not on any blood thinners. Allergies Allergy/AdvReac Type Severity Reaction Status Date / Time povidone-iodine Allergy Intermediate ITCHING Verified 04/05/22 16:41 [From Betadine] soap [From Betadine] Allergy Intermediate ITCHING Verified 04/05/22 16:41 nickel AdvReac Intermediate IRRITATED Verified 04/05/22 16:41 AND ITCHY Home Medications Medication Instructions Recorded Confirmed Type docusate sodium 100 mg capsule 100 mg PO HS 09/17/18 04/05/22 History (Stool Softener) acetaminophen 500 mg tablet 1,000 mg PO Q6H PRN Pain 11/18/20 04/05/22 History (Tylenol Extra Strength) nebulizer accessories #1 ea 11/22/20 04/05/22 Rx nebulizer and compressor #1 ea 11/22/20 04/05/22 Rx albuterol sulfate 2.5 mg/3 mL 2.5 mg (3 mL) inhalation Q8H PRN 01/17/21 04/05/22 Rx (0.083 %) solution for nebulization bronchospasm 90 days #180 mL fluticasone furoate 200 1 ea inhalation DAILY 90 days #90 02/09/22 04/05/22 Rx mcg-vilanterol 25 mcg/dose ea inhalation powder (Breo Ellipta) Ventolin HFA 90 mcg/actuation 2 inh inhalation Q6H PRN 02/17/22 04/05/22 Rx aerosol inhaler (albuterol sulfate) SOB/WHEEZING 90 days #54 grams hydrocodone 5 mg-acetaminophen 325 1 tab PO Q6H PRN moderate-severe 04/06/22 Rx mg tablet pain #14 tabs ondansetron 4 mg disintegrating 4 mg PO Q8H PRN nausea and 04/06/22 Rx tablet vomiting #10 tabs Past Med/Surg History Medical History Allergic rhinitis Arthritis Asthma allergy induced Constipation Hypoxia Mild cognitive impairment Moderate COPD (chronic obstructive pulmonary disease) Positive Lyme disease serology Tubular adenoma of colon Surgical History H/O colonoscopy (~09/2018) H/O inguinal hernia repair (12/31/16) Right groin exploration with reduction of incarceratedsmall bowel and repair of femoral hernia with a plug of mesh 12/31/16 Dr. Marte History of open reduction and internal fixation (ORIF) procedure RIGHT ELBOW History of tonsillectomy S/P laparoscopic cholecystectomy (04/05/20) Laparoscopic cholecystectomy 04/05/20 Dr. Naylor Family History Mother Lung cancer Cancer Father Renal cancer Cancer Sister Renal cancer Denies family history of Ovarian cancer Prostate cancer No family history of adverse response to anesthesia Myocardial infarction Breast cancer Colorectal cancer Social History Smoking Status: Former smoker Tobacco Type: Cigarettes Age Started Using Tobacco: 14; Age Quit Using Tobacco: 71; Second Hand Exposure: No; Hx Alcohol Use: No Hx Substance Use: No Preferred Language: Syrian Communication Ability: Effective Visual Impairment: Limited Hearing Ability: Normal It Risk Advisor Required: No Beliefs That Will Affect Care: None marital status: / Current Living Situation: Spouse Current Living Situation Comment: patient's today current occupational status: retired How many Children do You have: 2 Feels Safe at Home: Yes Childhood Exposure to Second-Hand Smoke: No caffeine: Yes (coffee) during the past year weight has: remained stable Dental Care, Regularly: No Physical Activity Frequency: Daily Seatbelt Use: always Sunscreen Use: No Assistive Devices: Cane and Oxygen - at Night Review of Systems Review of Systems: Denies current fever, chills, headache, changes in vision, hearing, taste, and smell, chest pain, SOB, cough, abdominal pain, nausea, vomiting, diarrhea, hematemesis, melena, dysuria, hematuria Physical Exam Physical Exam: Physical Exam: General: In no acute distress, stated age, well-nourished, good hygiene HEENT: Normocephalic, bruise and small skin tear on the left temporal scalp which is not currently bleeding or infected, no scleral icterus, pupils around round, symmetrical, and reactive to light, moist mucus membranes, trachea midline, no thyromegaly Chest/Pulm: No respiratory distress, symmetrical chest expansion, clear breath sounds throughout Cardiac: RRR, no murmurs noted Abdomen: Negative for ascites and bruising, normoactive bowel sounds, soft, non-tender to palpation throughout Musculoskeletal: patient with left arm currently in sling, patient currently with full ROM of the right upper and lower extremities, patient with intact ROM of the left wrist, hand, and foot, left lower extremity significantly swollen at this time and currently with ice pack in place Extremities: Patient with intact and symmetrical radial, dorsalis pedis, and posterior tibial pulses, no swelling of the right lower extremity Neuro: Alert and oriented to person, place, month, year, and president, no focal defects, CN II-XII tested and intact, finger to nose test negative, no tremors noted Psych: No acute distress, calm and cooperative during the exam Results & Data Results & Data ([facility]) Vital Signs (Past 12 Hours) Vital Signs Temp Pulse Resp BP Pulse Ox O2 Del Method 04/05/22 16:00 37.1 C 92 H 20 134/81 91 Room Air Laboratory Results Abnormal lab results 04/05/22 Range/Units 15:20 Glucose 125 H (70-99(Fasting)) mg/dl Diagnostic Findings Cervical Spine CT 04/05/22 16:[address] DOSE: HISTORY: Fall. Trauma TECHNIQUE: Multiaxial CT images of the cervical spine were performed and reformatted in the sagittal and coronal plane without the use of contrast. A dose lowering technique was utilized adhering to the principles of ALARA. COMPARISON: None. FINDINGS: No fractures. No subluxation. Prevertebral soft tissues and the C1-C2 interval are intact. No pneumothorax. Multinodular thyroid gland with the largest on the left measuring 2.5 cm. Emphysema. There is normal compression deformity at T4 which is partially visualized. Moderate degenerative disc disease within the lower cervical spine. IMPRESSION: No fractures within the cervical spine. ACT 112: Negative or not required by law. Electronically signed by: Allen Nicholson M.D. 04/05/2022 5:[address] 04/05/22 16:[address] DOSE: 993.57 mGy.cm HISTORY: Fall. Trauma TECHNIQUE: Multiaxial CT images of the head were performed without the use of intravenous contrast. Automated exposure control was utilized for this study. A dose lowering technique was utilized adhering to the principles of ALARA. Comparison: None. Findings: Mild mucosal thickening within the ethmoid air cells. The mastoid air cells are clear. The calvarium and skull base are intact. There is no hematoma, midline shift, acute infarct. White matter hypodensity is nonspecific but suggestive of microvascular ischemic change. The ventricles and sulci demonstrate mild age-related involutional changes. There is a 1.4 cm slightly hyperdense and partially calcified nodule abutting the right lateral ventricle. No surrounding vasogenic edema. Impression: 1. No acute intracranial abnormality. 2. A 1.4 cm partially calcified nodule adjacent to the right lateral ventricle. 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 Follow-up head CT in 6 months can be performed to ensure stability. ACT 112: Negative or not required by law. Electronically signed by: Allen Nicholson M.D. 04/05/2022 5:05 PM Knee X-Ray 04/05/22 16:06 XR knee LT 1 or 2V routine CLINICAL HISTORY: pain to patel, twisted knee COMPARISON: None FINDINGS: Left knee joint effusion with lipohemarthrosis is noted. Left knee and lower leg soft tissue swelling is present. There is an acute comminuted displaced fracture of the left fibular head and neck. In addition, there is an acute oblique mildly displaced fracture which extends from the lateral tibial plateau to the proximal diaphysis of the left tibia at the junction of the proximal and middle thirds. Displaced transverse component extends through the metaphysis of the left tibia. Fracture may also extend to the medial tibial plateau. Lateral tibial plateau is depressed, suboptimally assessed by radiography IMPRESSION: 1. Acute comminuted displaced left tibial fracture which extends from the lateral tibial plateau to the proximal diaphysis with depression of the lateral tibial plateau, suboptimally assessed by radiography. 2. Comminuted displaced fracture of the left fibular head and neck. 3. Associated left knee joint effusion with lipohemarthrosis. ACT 112: Negative or not required by law. Electronically signed by: Dylan Mireles M.D. 04/05/2022 5:16 PM Tibia/Fibula X-Ray 04/05/22 16:06 XR tibia fibula LT 2V CLINICAL HISTORY: ecchymosis/hematoma COMPARISON: None FINDINGS: Left knee and lower leg soft tissue swelling is present. Note is made of an acute comminuted mildly displaced fracture of the left fibular head and neck. There is also a left fibular fracture which extends from the lateral tibial plateau through the proximal diaphysis of the left tibia. Transverse component extends through the metaphysis. Lateral tibial plateau is depressed, suboptimally assessed by radiography. No distal left tibial or fibular fracture is present. Talar dome is intact. IMPRESSION: 1. Acute comminuted displaced oblique left tibial fracture which extends from the tibial plateau through the proximal diaphysis, as described above. Lateral tibial plateau depressed, suboptimally assessed by radiography. 2. Acute comminuted mildly displaced fracture of the left fibular head and neck. 3. No distal left tibial or fibular fracture. ACT 112: Negative or not required by law. Electronically signed by: Dylan Mireles M.D. 04/05/2022 5:51 PM Humerus X-Ray 04/05/22 16:07 XR humerus LT 2V CLINICAL HISTORY: pain s/p fall COMPARISON: None FINDINGS: Note is made of an acute comminuted displaced left humeral head and neck fracture. Distal component is displaced approximately 1.9 cm anteriorly. Fracture extends through the greater tuberosity. Alignment of the left glenohumeral joint is anatomic. No distal left humeral fracture is identified. Alignment of the left elbow appears anatomic. IMPRESSION: Acute comminuted displaced left humeral head and neck fracture. ACT 112: Negative or not required by law. Electronically signed by: Dylan Mireles M.D. 04/05/2022 5:53 PM Shoulder X-Ray 04/05/22 16:07 XR shoulder LT min 2V routine CLINICAL HISTORY: fall, shoulder/arm pain COMPARISON: None FINDINGS: Note is made of an acute comminuted displaced fracture of the left humeral head and neck. Distal component is displaced approximately 1.9 cm anteriorly. Fracture extends through the greater tuberosity. Alignment of the left acromioclavicular and glenohumeral joints is anatomic. Moderate osteoarthritis of the left acromioclavicular joint is noted. IMPRESSION: Moderately displaced comminuted left humeral neck and head fracture, as described above. ACT 112: Negative or not required by law. Electronically signed by: Dylan Mireles M.D. 04/05/2022 5:[address] 04/05/22 18:[address] DOSE: 240.55 mGy.cm HISTORY: Left knee fracture. Left knee pain. Eval for articular depression TECHNIQUE: Multiaxial CT images of the left knee were performed and reformatted in the sagittal and coronal plane without the use of contrast. A dose lowering technique was utilized adhering to the principles of ALARA. COMPARISON: Left knee radiograph 04/05/2022. FINDINGS: No fractures identified within the distal femur or patella. No dislocation. There is a lateral tibial plateau fracture which extends to the articular surface and lateral tibial spine. This demonstrates mild depression posteriorly of up to 3 mm. There is also mild posterior displacement of the fracture of approximately 4 mm. The posterior fracture extends to the posterior aspect of the medial tibia and may extend to the medial articular surface. The fracture extends to the proximal shaft of the tibia which also demonstrates up to 9 mm of posterior displacement. Comminuted and impacted fracture at the fibular head/neck with mild posterior displacement. Subcutaneous hemorrhage within the anterolateral lower leg. Moderate lipohemarthrosis. IMPRESSION: 1. Proximal left tibial and fibular fractures as described above. 3. Moderate lipohemarthrosis. 4. Subcutaneous hemorrhage within the anterolateral lower leg. ACT 112: Negative or not required by law. Electronically signed by: Allen Nicholson M.D. 04/05/2022 6:[address] 04/05/22 18:[address] DOSE: 269.43 mGy.cm HISTORY: Left shoulder pain. Fall. Eval for communition of fracture TECHNIQUE: Multiaxial CT images of the left shoulder were performed and reformatted in the sagittal and coronal plane without the use of contrast. A dose lowering technique was utilized adhering to the principles of ALARA. COMPARISON: Left shoulder 04/05/2022. FINDINGS: There is again noted a comminuted and displaced fracture of the left humeral neck which extends to the greater tuberosity of the humeral head. The greater tuberosity fracture demonstrates up to 1.6 cm of posterior displacement is slightly comminuted. The humeral neck fracture also demonstrates 1 cm posterior displacement and impaction. The scapula and clavicle appear intact. No dislocation of the humeral head. Soft tissue swelling and a lipohemarthrosis within the glenohumeral joint. Emphysema noted within the left lung. IMPRESSION: Comminuted and displaced fractures within the left humeral neck/head as described above. No dislocation. ACT 112: Negative or not required by law. Electronically signed by: Allen Nicholson M.D. 04/05/2022 6:38 PM ECG Additional Comments: Sinus rhythm with occasional Premature ventricular complexes Incomplete right bundle branch block Possible Inferior infarct (cited on or before 31-DEC-2016) Abnormal ECG When compared with ECG of 18-NOV-2020 10:30, Significant changes have occurred Code Status & VTE Plan Code Status DNR/DNI VTE Prophylaxis Plan VTE Prophylaxis will be ordered: Yes Supervising Physician Co-Signing Physician Notes I personally saw and examined the patient. I verified all rashid points and agree with Ab Lamar Pa-C with the following exceptions and/or additions: 76 year old female presents to the ER with tibia, fibula and humerus fracture. Slipped getting out of ambulance. No history of heart attack or stroke. Able to walk a mile slowly or a flight of stairs without chest pains or shortness of breath. Revised cardiac risk index 0. Medically optimized for surgery at this time. O/E HS1+2, no murmurs, Chest CTAB, Abdo SNT A/P No change ot plan above PG Care Time/CCT Total # of Minutes Spent Total Time Spent with Patient: Total time spent is greater than 50% in coordination of care (as documented) at patient's floor/unit and/or counseling patient: C[place] [address] Initial Inpt Care Lvl 2 Patient Type Established Medical Decision Making Moderate Complexity Diagnoses Fall W19.XXXA Left humeral fracture S42.302A Left tibial fracture S82.202A Left fibular fracture S82.402A Moderate COPD (chronic obstructive pulmonary disease) J44.9 Asthma J45.909 Asthma complication type: unspecified Asthma persistence: unspecified Asthma severity: moderate (1) Asthma Asthma complication type: unspecified Asthma persistence: unspecified Asthma severity: moderate Qualified Code(s): J45.909 - Unspecified asthma, uncomplicated
--- NOTE | 2022-04-05 18:40 | CT Scan Report ---
LEFT SHOULDER CT CT DOSE: 269.43 mGy.cm HISTORY: Left shoulder pain. Fall. Eval for communition of fracture TECHNIQUE: Multiaxial CT images of the left shoulder were performed and reformatted in the sagittal a nd coronal plane without the use of contrast. A dose lowering technique was utilized adhering to the principles of ALARA. COMPARISON: Left shoulder 04/05/2022. FINDINGS: There is again noted a comminuted and displaced fracture of the left humeral neck which ext ends to the greater tuberosity of the humeral head. The greater tuberosity fracture demonstrates up t o 1.6 cm of posterior displacement is slightly comminuted. The humeral neck fracture also demonstrate s 1 cm posterior displacement and impaction. The scapula and clavicle appear intact. No dislocation o f the humeral head. Soft tissue swelling and a lipohemarthrosis within the glenohumeral joint. Emphys mani noted within the left lung. IMPRESSION: Comminuted and displaced fractures within the left humeral neck/head as described above. No dislocati on. ACT 112: Negative or not required by law. Electronically signed by: Allen Nicholson M.D. 04/05/2022 6:38 PM
--- NOTE | 2022-04-05 18:46 | CT Scan Report ---
LEFT KNEE CT CT DOSE: 240.55 mGy.cm HISTORY: Left knee fracture. Left knee pain. Eval for articular depression TECHNIQUE: Multiaxial CT images of the left knee were performed and reformatted in the sagittal and c oronal plane without the use of contrast. A dose lowering technique was utilized adhering to the devin Galvan. COMPARISON: Left knee radiograph 04/05/2022. FINDINGS: No fractures identified within the distal femur or patella. No dislocation. There is a late ral tibial plateau fracture which extends to the articular surface and lateral tibial spine. This dem onstrates mild depression posteriorly of up to 3 mm. There is also mild posterior displacement of the fracture of approximately 4 mm. The posterior fracture extends to the posterior aspect of the medial tibia and may extend to the medial articular surface. The fracture extends to the proximal shaft of the tibia which also demonstrates up to 9 mm of posterior displacement. Comminuted and impacted fract ure at the fibular head/neck with mild posterior displacement. Subcutaneous hemorrhage within the ant erolateral lower leg. Moderate lipohemarthrosis. IMPRESSION: 1. Proximal left tibial and fibular fractures as described above. 3. Moderate lipohemarthrosis. 4. Subcutaneous hemorrhage within the anterolateral lower leg. ACT 112: Negative or not required by law. Electronically signed by: Allen Nicholson M.D. 04/05/2022 6:43 PM
[2022-04-05] MEDS ORDERED: MAGNESIUM HYDROXIDE SUSP 30 ML UDC PO PRN (21:58)
[2022-04-05] MEDS ORDERED: NALOXONE HCL 0.4 MG/1 ML VIAL/CARP IV PRN (21:58)
[2022-04-05] MEDS ORDERED: MoRPHine SULFATE 2 MG/ML CARP IV PRN (21:58)
[2022-04-05] MEDS ORDERED: bisacodyL 10 MG SUPP PR PRN (21:58)
[2022-04-05] MEDS ORDERED: ALBUTEROL 0.083% NEBU SOLN 3 ML VIAL INH PRN (21:58)
[2022-04-05] MEDS ORDERED: DOCUSATE SODIUM/SENNA 50/8.6MG TAB PO SCH (21:58)
[2022-04-05] MEDS: MoRPHine SULFATE 4 MG/ML 1 ML CARP\\VIAL IV PRN (22:22)
[2022-04-05] MEDS: ACETAMINOPHEN 325 MG TAB PO SCH (22:31)
[2022-04-05] MEDS ORDERED: MELATONIN 3 MG TAB PO PRN (23:53)
[2022-04-06] MEDS: ACETAMINOPHEN 325 MG TAB PO SCH ×2 (03:32→08:39)
[2022-04-06] MEDS: MoRPHine SULFATE 4 MG/ML 1 ML CARP\\VIAL IV PRN ×2 (03:33→08:30)
[2022-04-06 07:07] LABS: BUN Creatinine Ratio 23.9 (10-20); Calcium 8.8 mg/dl (8.5-10.1); Creatinine Clr Calc Pharmacy 53.7 ml/min; Est GFR (African American) 95.2 ml/min; Est GFR (Non-African American) 82.2 ml/min; Potassium 4.2 mmol/L (3.5-5.1)
[2022-04-06 07:09] LABS: Hematocrit (blood only) 32.3 % (34.1-44.9); Hemoglobin 10.4 g/dl (12.0-16.0); Mean Corpuscular Hemoglobin 28.6 pg (25.0-34.0); Mean Corpuscular Hgb Conc 32.2 g/dL (32.0-36.0); Mean Corpuscular Volume 88.7 fL (80.0-100.0); Mean Platelet Volume 9.2 fL (9.4-12.3); Platelet Count 230 K/uL (130-400); RDW Coefficient of Variation 13.5 % (11.5-14.5); RDW Standard Deviation 44.2 fL (36.4-46.3); Red Blood Count 3.64 M/uL (3.93-5.22); White Blood Count 8.73 K/ul (4.8-10.8)
[2022-04-06] MEDS ORDERED: FLUTICASONE/VILANTEROL 200/25MCG 14 PUFFS/INHALER INH SCH (09:00)
--- NOTE | 2022-04-06 12:08 | Orthopedic Consultation ---
Date of Service April 06, 2022 Assessment & Plan (1) Closed fracture of tibial plateau: She was seen and examined by Dr. Bateman today as well. We discussed treatment options and recommend nonoperative treatment at this time. She is in agreement with this plan. We can order her a diet today. She would like to go home today and her daughter/family will be staying with her. She will need to wear the sling. No motion of the left shoulder. She can move her fingers and wrist. We placed her into a long leg cast for the leg fractures. She needs to be nonweight bearing to the left arm and leg. She will need to be NWB on the left leg for at least 4 weeks, maybe 6 weeks. She will need a wheel chair. We will get xray of the tib/fib after casting. Follow up with Dr. Bateman in 2 weeks. (2) Left humeral fracture: History of Present Illness Reason for Consultation: . Requesting Physician: . Attending Physician: Kathi Cooper MD .76 year old right hand dominant patient admitted yesterday with left proximal humerus and left tib/fib fractures. She fell as she was getting out of an ambulance that she was in as her was in cardiac arrest. She injured her left shoulder and left leg. No other orthopedic complaints at this time. She has had multiple fractures in the past including her right shoulder, elbow, wrist, and pelvis. No numbness or tingling in her extremities. Allergies Allergy/AdvReac Type Severity Reaction Status Date / Time povidone-iodine Allergy Intermediate ITCHING Verified 04/05/22 16:41 [From Betadine] soap [From Betadine] Allergy Intermediate ITCHING Verified 04/05/22 16:41 nickel AdvReac Intermediate IRRITATED Verified 04/05/22 16:41 AND ITCHY Home Medications Medication Instructions Recorded Confirmed Type docusate sodium 100 mg capsule 100 mg PO HS 09/17/18 04/05/22 History (Stool Softener) acetaminophen 500 mg tablet 1,000 mg PO Q6H PRN Pain 11/18/20 04/05/22 History (Tylenol Extra Strength) nebulizer accessories #1 ea 11/22/20 04/05/22 Rx nebulizer and compressor #1 ea 11/22/20 04/05/22 Rx albuterol sulfate 2.5 mg/3 mL 2.5 mg (3 mL) inhalation Q8H PRN 01/17/21 04/05/22 Rx (0.083 %) solution for nebulization bronchospasm 90 days #180 mL fluticasone furoate 200 1 ea inhalation DAILY 90 days #90 02/09/22 04/05/22 Rx mcg-vilanterol 25 mcg/dose ea inhalation powder (Breo Ellipta) Ventolin HFA 90 mcg/actuation 2 inh inhalation Q6H PRN 02/17/22 04/05/22 Rx aerosol inhaler (albuterol sulfate) SOB/WHEEZING 90 days #54 grams hydrocodone 5 mg-acetaminophen 325 1 tab PO Q6H PRN moderate-severe 04/06/22 Rx mg tablet pain #14 tabs ondansetron 4 mg disintegrating 4 mg PO Q8H PRN nausea and 04/06/22 Rx tablet vomiting #10 tabs Past Med/Surg History Medical History Allergic rhinitis Arthritis Asthma allergy induced Constipation Hypoxia Mild cognitive impairment Moderate COPD (chronic obstructive pulmonary disease) Positive Lyme disease serology Tubular adenoma of colon Surgical History H/O colonoscopy (~09/2018) H/O inguinal hernia repair (12/31/16) Right groin exploration with reduction of incarceratedsmall bowel and repair of femoral hernia with a plug of mesh 12/31/16 Dr. Marte History of open reduction and internal fixation (ORIF) procedure RIGHT ELBOW History of tonsillectomy S/P laparoscopic cholecystectomy (04/05/20) Laparoscopic cholecystectomy 04/05/20 Dr. Naylor Family History Mother Lung cancer Cancer Father Renal cancer Cancer Sister Renal cancer Denies family history of Ovarian cancer Prostate cancer No family history of adverse response to anesthesia Myocardial infarction Breast cancer Colorectal cancer Social History Smoking Status: Former smoker Tobacco Type: Cigarettes Age Started Using Tobacco: 14; Age Quit Using Tobacco: 71; Second Hand Exposure: No; Hx Alcohol Use: No Hx Substance Use: No Preferred Language: [place] Communication Ability: Effective Visual Impairment: Limited Hearing Ability: Normal Gin Inspector Required: No Beliefs That Will Affect Care: None marital status: / Current Living Situation: Spouse Current Living Situation Comment: patient's today current occupational status: retired How many Children do You have: 2 Feels Safe at Home: Yes Childhood Exposure to Second-Hand Smoke: No caffeine: Yes (coffee) during the past year weight has: remained stable Dental Care, Regularly: No Physical Activity Frequency: Daily Seatbelt Use: always Sunscreen Use: No Assistive Devices: Cane and Oxygen - at Night Review of Systems All systems reviewed & are unremarkable except as noted in HPI & below. Physical Exam . Alert and oriented. NAD Left arm: sling in place. She has swelling and ecchymosis of the left upper arm. Tender around her shoulder. No tenderness of the elbow, wrist or hand. She can flex and extend her thumb and fingers, and wrist appropriately. NVI. Left leg: Swelling around the knee and lower leg. Skin intact. No motion of her knee at this time. She can dorsiflex and plantarflex. NVI. Compartments soft. Results & Data Results & Data Laboratory Results . Diagnostic Findings .xray and Ct scan of the left shoulder reviewed and show a comminuted, impacted proximal humerus fracture. The greater tuberosity is displace. No dislocation xray and ct of the knee and tib/fib reviewed and show medial/lateral tibia plateau fractures, fracture of the proximal tibial shaft with mild displacement, and proximal fibula fracture PG Care Time/CCT Total # of Minutes Spent Total Time Spent with Patient: Total time spent is greater than 50% in coordination of care (as documented) at patient's floor/unit and/or counseling patient: Coding Level of Care Code 76555 Inpt Consult Level 4 Diagnoses Closed fracture of tibial plateau S82.143A Left humeral fracture S42.302A
--- NOTE | 2022-04-06 12:59 | Communication Note ---
Date of Service: April 06, 2022 By CMS guidelines, a determination that the admission or continued stay is not medically necessary has been made by a member of the UR committee and a phy sician for this hospital stay, therefore a Code 44 will be completed and the Inpatient admission will be changed to outpatient. Darien Curran MD
--- NOTE | 2022-04-06 13:00 | Communication Note ---
Date of Service: April 06, 2022 By CMS guidelines, a determination that the admission or continued stay is not medically necessary has been made by a member of the UR committee and a ph ysician for this hospital stay, therefore a Code 44 will be completed and the Inpatient admission will be changed to outpatient. Kathi Cooper M.D.
--- NOTE | 2022-04-06 13:04 | Discharge Summary ---
Date of Service April 06, 2022 Admission HPI Per Admitting Provider Ning is a 76 year old female with a PMH significant for moderate COPD, asthma, allergic rhinitis, mild cognitive impairment, allergic rhinitis, and previously lyme positive who presented to the [facility] on 04/05 for fall. Per chart review, the patient initially was riding in an ambulance with her who had gone into cardiac arrest. When she was attempting to get out of the ambulance she fell. In the ED the patient was noted to be afebrile, hemodynamically stable, and stable on RA. Trauma scans revealed Moderately displaced comminuted left humeral neck and head fracture, Acute comminuted displaced oblique left tibial fracture which extends from the tibial plateau through the proximal diaphysis, and Acute comminuted mildly displaced fracture of the left fibular head and neck. At the time of the exam the patient was resting comfortably in bed in no acute distress. She states that she slipped when she was trying to get out of the ambulance when it arrived. She states that she was very shocked and distracted because she was just told in the ambulance that her 's heart had stopped. She denies lightheadedness, dizziness, headache, chest pain, SOB, and heart palpitations prior to her fall. She remembers landing on her knees, her left lower leg turning the wrong way, and hitting the left side of her head. She states that she does not think that she lost consciousness but EMS told her she did for about 30 seconds or so. She states that her pain in well-controlled at the current time. She is curious if she will need any surgery, I explained to her that orthopedics will make that determination. She confirmed that she is not on any blood thinners. Principal Diagnosis Fall, left humerus and tibia,fibula fractures Discharge Exam Vitals reviewed Gen: [AAOx3, NAD] HEENT: [anicteric sclerae, EOMI] CV: [RRR no mgr nl S1S2] Pulm: [CTAB no wcr] Abd: [+BS soft NT ND no masses or hernias] Ext: [LLE in case, LUE in sling Skin: [no rashes, warm/dry] Neuro: [full strength throughout] Discharge Data Allergies Allergy/AdvReac Type Severity Reaction Status Date / Time povidone-iodine Allergy Intermediate ITCHING Verified 04/05/22 16:41 [From Betadine] soap [From Betadine] Allergy Intermediate ITCHING Verified 04/05/22 16:41 nickel AdvReac Intermediate IRRITATED Verified 04/05/22 16:41 AND ITCHY Consultations 04/05/22 18:41 ED Decision to Admit Stat 04/05/22 19:09 Consult Orthopedic Surgery Routine Ordered Studies 04/05/22 16:05 CT cervical spine wo con Stat CT head/brain wo con Stat 04/05/22 18:08 CT knee LT wo con Stat CT shoulder LT wo con Stat Hospital Course (1) Fall: -Patient suffered a mechanical fall trying to get out of the ambulance as her was in cardiac arrest -Head CT negative for acute trauma -Trauma workup revealed fractures to the left humerus, left tibia, and left fibula -Ortho consulted and placed LUE in sling, left leg in high cast--> NWB to LLE and LUE for 4-6 weeks, f/u with Ortho in 2 weeks tylenol and hydrocodone prn for pain dc to home with wheelchair home health ordered WHEELCHAIR REQUIRED: The patient has mobility limitation that significantly impairs her ability to participate in mobility related activities of daily living. The patient's mobility limitation cannot be sufficiently resolved by the use of a cane or walker. The patient's home provides adequate access between rooms, maneuvering space and surfaces for use of the manual wheelchair. The use of a manual wheelchair will improve the patient's ability to participate in MRADLs and the beneficiary will use it on a regular basis in the home. The patient has not expressed an unwillingness to use the manual wheelchair this provided in the home. The beneficiary has a caregiver who is available, willing and able to provide assistance with the wheelchair. (2) Left humeral fracture: -See fall (3) Left tibial fracture: -See fall (4) Left fibular fracture: -see fall (5) Moderate COPD (chronic obstructive pulmonary disease): -SUPPLY CHAIN PROCUREMENT MANAGER breo-ellipta -SUPPLY CHAIN PROCUREMENT MANAGER prn albuterol -Incentive spirometry (6) Asthma: -See COPD Plan Dispo-dc to home Total Time Total Time Spent Total Time Spent (In Minutes): 35 min Total Time Includes: Examination of the Patient, Discharge Planning, Medication Reconciliation and Communication With Other Providers (Dr. Bateman of Orthopedics) Discharge Plan Discharge Items Patient Disposition: Home - Home Health Services Reason For Visit: FALL Discharge Diagnosis: Left humerus and left tibia and fibula fractures, Fall Activity: As commented below Bathing Comment: Keep cast dry Exercise/Sports: As tolerated Weightbearing: Left non-weightbearing Weightbearing Comment: for left arm and lower extremity Non-emergency contact: Primary Care Provider and Surgeon Call non-emergency contact if: you have any medication questions, your symptoms worsen and your pain is not controlled Follow-up/Referrals: Demetrice Kelly DO [Primary Care Provider] - 04/18/22 1:20 pm (Follow up within 1-2 weeks) Oleg Bateman MD [Physician] - 04/20/22 1:40 pm (Please follow up in 2 weeks.) Diet: Regular Addtl Attending Provider Instructions: You were admitted after suffering a fall which resulted in fractures of your left upper arm and left leg. You were placed in a sling for the left arm and a cast for the left leg but did not require surgery. You can take tylenol for mild-moderate pain and hydrocodone as needed for moderate-severe pain. Take a stool softener or laxative if needed as oxycodone can make you constipated. Please remain non-weight bearing on your left leg and left arm. You had an abnormality on your head CT that will require a follow up CT head in 6 months-this was discussed with you on admission. Your PCP can order this test for you when the time comes. I am very sorry for your loss and will be keeping you and your family in my thoughts and prayers! Kathi Cooper M.D. Pending Studies at Discharge: No Stand-Alone Forms: My [facility], Opioid Pain Management, Smoking Cessation Medications and DC Order Prescriptions: New hydrocodone-acetaminophen 5-325 mg tablet 1 tab PO Q6H PRN (Reason: moderate-severe pain) Qty: 14 0RF ondansetron 4 mg tablet,disintegrating 4 mg PO Q8H PRN (Reason: nausea and vomiting) Qty: 10 0RF Continued (DME) nebulizer accessories Kit See Rx Instructions .ROUTE .MEDSUPPLY Qty: 1 0RF Rx Instructions: As directed (DME) nebulizer and compressor Device See Rx Instructions .ROUTE .MEDSUPPLY Qty: 1 0RF Rx Instructions: As directed albuterol sulfate 2.5 mg /3 mL (0.083 %) solution for nebulization 2.5 mg inhalation Q8H PRN (Reason: bronchospasm) 90 Days Qty: 180 3RF Rx Instructions: J44.9 , J45.909 Breo Ellipta 200-25 mcg/dose blister with device 1 ea inhalation DAILY 90 Days Qty: 90 1RF albuterol sulfate [Ventolin HFA] 90 mcg/actuation HFA aerosol inhaler 2 inh inhalation Q6H PRN (Reason: SOB/WHEEZING) 90 Days Qty: 54 1RF Rx Instructions: Please dispense 3 inhalers docusate sodium [Stool Softener] 100 mg Capsule 100 mg PO HS acetaminophen [Tylenol Extra Strength] 500 mg Tablet 1,000 mg PO Q6H PRN (Reason: Pain) Discharge Orders: Discharge Order (Routine); Ordered 04/06/22 Ordered By: Kathi Cooper Admission Data Admit Date/Time: 04/05/22 18:36 Attending Provider: Kathi Cooper Admit Provider: Kathi Cooper Primary Care Provider: Demetrice Kelly Other Providers: Ab Cyr ; Bernardo Bergman ; Luis Meneses [facility] Other Interventions: Discharge Summary Assessment (RN) Last Done: 04/06/22 14:54 Coding Level of Care Code 75263 OBS Care - Discharge Diagnoses Fall W19.XXXA Left humeral fracture S42.302A Left tibial fracture S82.202A Left fibular fracture S82.402A Moderate COPD (chronic obstructive pulmonary disease) J44.9 Asthma J45.909 Asthma complication type: unspecified Asthma persistence: unspecified Asthma severity: moderate
--- NOTE | 2022-04-06 13:48 | XRay Report ---
XR tibia fibula LT 2V CLINICAL HISTORY: tib/fib fx TECHNIQUE: 2 radiographic views of the left leg were obtained. Comparison: Comparison is made to knee radiographs 04/05/2022 FINDINGS: The leg is in a cast limiting fine bony detail. Redemonstration of fractures of the tibia and fibula which are in near anatomic alignment. Partial visualization of a lipohemarthrosis in the knee. IMPRESSION: Near-anatomic alignment of tibia and fibula fractures. Leg has been placed in a cast limiting evaluat ion for fine bony detail. ACT 112: Negative or not required by law. Electronically signed by: Yogi Perez M.D. 04/06/2022 1:47 PM
[2022-04-06] MEDS ORDERED: ONDANSETRON INJ 2 MG/ML 2 ML VIAL IV PRN (14:24)
--- NOTE | 2022-04-06 16:05 | Electrocardiogram Report ---
Test Reason : Blood Pressure : / mmHG Vent. 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
== END 2022-04-06 14:55 | disposition home health service (06) ==
LOC: ED 15:45 → SUATTDRO 18:36 → INTOOBSV 18:36 → 3E 18:36